=== PATIENT | female | born 1945 | race Caucasian/White ===

== ENCOUNTER 2023-03-10 23:10 | Inpatient (IN) | payer MEDICARE ==
[2023-03-11] MEDS ORDERED: SODIUM CHLORIDE 0.9% 1,000 ML IV STA (00:04)
--- NOTE | 2023-03-11 00:37 | ED ---
General Adult HPI - General Chief complaint: Recheck/Abnormal Lab/Rx Stated complaint: Abnormal Labs Time Seen by Provider: 03/10/23 23:59 Source: patient, EMS Mode of arrival: EMS Limitations: no limitations - History of Present Illness Initial comments: Dictation was produced using Calm dictation software. please excuse any grammatical, word or spelling errors. Chief Complaint: 77-year-old female presents to the emergency department for hypokalemia History of Present Illness: 77-year-old female presents emergency department for hypokalemia. Patient's had blood work drawn at [facility]. Patient recently diagnosed with C. diff infection. States that her diarrhea is improved. Patient has no complaints. She was told that she needs to come to the ER for low potassium levels. No pain. The ROS documented in this emergency department record has been reviewed and confirmed by me. Those systems with pertinent positive or negative responses have been documented in the HPI. All other systems are other negative and/or noncontributory. - Related Data Allergies Allergy/AdvReac Type Severity Reaction Status Date / Time No Known Allergies Allergy Verified 03/10/23 23:22 Review of Systems ROS Statement: Those systems with pertinent positive or pertinent negative responses have been documented in the HPI. ROS Other: All systems not noted in ROS Statement are negative. General Exam - General Exam Comments Initial Comments: PHYSICAL EXAM: General Impression: Alert and oriented x3, not in acute distress HEENT: Normocephalic atraumatic, extra-ocular movements intact, pupils equal and reactive to light bilaterally, mucous membranes moist. Cardiovascular: Heart regular rate and rhythm Chest: Able to complete full sentences, no retractions, no tachypnea Abdomen: abdomen soft, non-tender, non-distended, no organomegaly Musculoskeletal: Pulses present and equal in all extremities, no peripheral edema Motor: no focal deficits noted Neurological: CN II-XII grossly intact, no focal motor or sensory deficits noted Skin: Intact with no visualized rashes Psych: Normal affect and mood Limitations: no limitations Course Vital Signs 03/10/23 0703/11/23 23:14 00:58 02:39 Temperature 98.0 F Pulse Rate 91 74 88 Respiratory 18 16 Rate Blood Pressure 81/53 99/53 95/51 O2 Sat by Pulse 94 L 97 Oximetry EKG Findings - EKG Comments: EKG Findings:: My EKG interpretation: Ventr 90, ventricular paced rhythm,. Interval to 29, QRS 135, QTC 480 icular rate [default value]. No VT prolongation, no QTC prolongation, no ST or T-wave changes noted. Overall, this EKG is unremarkable Medical Decision Making - Medical Decision Making Was pt. sent in by a medical professional or institution (, PA, [employer], urgent care, hospital, or group home...) When possible be specific @ -[No] Did you speak to anyone other than the patient for history (EMS, parent, family, police, friend...)? What history was obtained from this source @ -[No] Did you review nursing and triage notes (agree or disagree)? Why? @ -[I reviewed and agree with nursing and triage notes] Were old charts reviewed (outside hosp., previous admission, EMS record, old EKG, old radiological studies, urgent care reports/EKG's, group home records)? Report findings @ -group home notes reviewed showing patient has multiple comorbidities Differential Diagnosis (chest pain, altered mental status, abdominal pain women, abdominal pain men, vaginal bleeding, musculoskeletal, weakness, fever, dyspnea, syncope, headache, dizziness, GI bleed, back pain, seizure, CVA, palpatations, mental health)? @ -Differential Weakness: Hypoglycemia, shock, sepsis, hyponatremia, anemia, infection, MA, ETOH, adverse medicine reaction, overdose, stroke, this is not meant to be an all-inclusive list. EKG interpreted by me (3pts min.). @ -as above X-rays interpreted by me (1pt min.). @ -[None done] CT interpreted by me (1pt min.). @ -[None done] U/S interpreted by me (1pt. min.). @ -[None done] What testing was considered but not performed or refused? (CT, X-rays, U/S, l abs)? Why? @ -[None] What meds were considered but not given or refused? Why? @ -[None] Did you discuss the management of the patient with other professionals (professionals i.e. , [facility], [employer], lab, RT, psych nurse, social work nurse, director housekeeping, teacher, juvenile probation officer, dependency case manager)? Give summary @ -[No] Was smoking cessation discussed for >3mins.? @ -[No] Was critical care preformed (if so, how long)? @ -[No] Were there social determinants of health that impacted care today? How? (Homelessness, low income, unemployed, alcoholism, drug addiction, transportation, low edu. Level, literacy, decrease access to med. care, detention, rehab)? @ -[No] Was there de-escalation of care discussed even if they declined (Discuss DNR or withdrawal of care, Hospice)? DNR status @ -[No] What co-morbidities impacted this encounter? (DM, HTN, Smoking, COPD, CAD, Cancer, CVA, ARF, Chemo, Hep., AIDS, mental health diagnosis, sleep apnea, morbid obesity)? @ -[None] Was patient admitted / discharged? Hospital course, mention meds given and route, prescriptions, significant lab abnormalities, going to OR and other p ertinent info. @ -77-year-old female presents to emergency department for abnormal potassium level seen on blood work drawn outpatient. Patient denies any complaints. Initial blood pressure was 8153 however repeat blood pressure without any intervention was 99/53. She denies any complaints. Laboratory evaluation obtained. Leukocytosis of 14.7 hemoglobin 9.6. Sodium of 129. Elevated renal markers. Troponin is 0.141. There are no old labs for comparison. Patient denies any chest pain or shortness of breath. Troponin is likely secondary troponin leak however given that patient has significant comorbidities with no old labs for comparison we will place patient to observation unit for serial troponins. Patient given IV fluids. Patient reevaluated bedside throughout 2 AM denies any complaints at the bedside. Undiagnosed new problem with uncertain prognosis? @ -[No] Drug Therapy requiring intensive monitoring for toxicity (Heparin, Nitro, Insulin, Cardizem)? @ -[No] Were any procedures done? @ -[No] Diagnosis/symptom? Acute, or Chronic, or Acute on Chronic? Uncomplicated (without systemic symptoms) or Complicated (systemic symptoms)? @ -1. Positive troponin Side effects of treatment? @ -[No] Exacerbation, Progression, or Severe Exacerbation? @ -no Poses a threat to life or bodily function? How? (Chest pain, USA, MA, pneumonia, PE, COPD, DKA, ARF, appy, cholecystitis, CVA, Diverticulitis, Homicidal, Janina cidal, threat to staff... and all critical care pts) @ -yes - Lab Data Result diagrams: 03/11/23 00:39 03/11/23 00:39 Lab Results 03/11/23 03/11/23 03/11/23 Range/Units 00:39 00:39 00:39 WBC 14.7 H (3.8-10.6) k/uL RBC 3.19 L (3.80-5.40) m/uL Hgb 9.6 L (11.4-16.0) gm/dL Hct 29.5 L (34.0-46.0) % MCV 92.5 (80.0-100.0) fL MCH 30.2 (25.0-35.0) pg MCHC 32.7 (31.0-37.0) g/dL RDW 14.9 (11.5-15.5) % Plt Count 311 (150-450) k/uL MPV 8.2 Neutrophils % 87 % Lymphocytes % 4 % Monocytes % 4 % Eosinophils % 2 % Basophils % 0 % Neutrophils # 12.8 H (1.3-7.7) k/uL Lymphocytes # 0.6 L (1.0-4.8) k/uL Monocytes # 0.6 (0-1.0) k/uL Eosinophils # 0.3 (0-0.7) k/uL Basophils # 0.0 (0-0.2) k/uL Poikilocytosis Slight PT 10.8 (9.0-12.0) sec INR 1.0 (<1.2) APTT 23.9 (22.0-30.0) sec Sodium 129 L (137-145) mmol/L Potassium 3.4 L (3.5-5.1) mmol/L Chloride 95 L (98-107) mmol/L Carbon Dioxide 26 (22-30) mmol/L Anion Gap 8 mmol/L BUN 33 H (7-17) mg/dL Creatinine 1.24 H (0.52-1.04) mg/dL Est GFR (CKD-EPI)AfAm 49 (>60 ml/min/1.73 sqM) Est GFR (CKD-EPI)NonAf 42 (>60 ml/min/1.73 sqM) Glucose 58 L (74-99) mg/dL Plasma Lactic Acid Vj (0.7-2.0) mmol/L Calcium 7.5 L (8.4-10.2) mg/dL Magnesium 2.1 (1.6-2.3) mg/dL Total Bilirubin 0.5 (0.2-1.3) mg/dL AST 22 (14-36) U/L ALT 15 (4-34) U/L Alkaline Phosphatase 84 (38-126) U/L Troponin I (0.000-0.034) ng/mL Total Protein 4.9 L (6.3-8.2) g/dL Albumin 2.4 L (3.5-5.0) g/dL 03/11/23 03/11/23 Range/Units 00:39 00:39 WBC (3.8-10.6) k/uL RBC (3.80-5.40) m/uL Hgb (11.4-16.0) gm/dL Hct (34.0-46.0) % MCV (80.0-100.0) fL MCH (25.0-35.0) pg MCHC (31.0-37.0) g/dL RDW (11.5-15.5) % Plt Count (150-450) k/uL MPV Neutrophils % % Lymphocytes % % Monocytes % % Eosinophils % % Basophils % % Neutrophils # (1.3-7.7) k/uL Lymphocytes # (1.0-4.8) k/uL Monocytes # (0-1.0) k/uL Eosinophils # (0-0.7) k/uL Basophils # (0-0.2) k/uL Poikilocytosis PT (9.0-12.0) sec INR (<1.2) APTT (22.0-30.0) sec Sodium (137-145) mmol/L Potassium (3.5-5.1) mmol/L Chloride (98-107) mmol/L Carbon Dioxide (22-30) mmol/L Anion Gap mmol/L BUN (7-17) mg/dL Creatinine (0.52-1.04) mg/dL Est GFR (CKD-EPI)AfAm (>60 ml/min/1.73 sqM) Est GFR (CKD-EPI)NonAf (>60 ml/min/1.73 sqM) Glucose (74-99) mg/dL Plasma Lactic Acid Vj 1.0 (0.7-2.0) mmol/L Calcium (8.4-10.2) mg/dL Magnesium (1.6-2.3) mg/dL Total Bilirubin (0.2-1.3) mg/dL AST (14-36) U/L ALT (4-34) U/L Alkaline Phosphatase (38-126) U/L Troponin I 0.141 H* (0.000-0.034) ng/mL Total Protein (6.3-8.2) g/dL Albumin (3.5-5.0) g/dL Disposition Clinical Impression: Elevated troponin Disposition: ADMITTED IP TO THIS HOSP Condition: Fair Referrals: Juan Carlos Gordillo MD [Primary Care Provider] - 1-2 days Decision Time: 03:05
[2023-03-11 01:26] LABS: Basophils % (A) 0 %; Eosinophils # (A) 0.3 k/uL (0-0.7); Eosinophils % (A) 2 %; HCT 29.5 % (34.0-46.0); HGB 9.6 gm/dL (11.4-16.0); Lymphocytes # (A) 0.6 k/uL (1.0-4.8); Lymphocytes % (A) 4 %; MCH 30.2 pg (25.0-35.0); MCHC 32.7 g/dL (31.0-37.0); MCV 92.5 fL (80.0-100.0); Mean Platelet Volume 8.2; Monocytes # (A) 0.6 k/uL (0-1.0); Monocytes % (A) 4 %; Neutrophils # (A) 12.8 k/uL (1.3-7.7); Neutrophils % (A) 87 %; Platelet Count 311 k/uL (150-450); Poikilocytosis Slight; RBC 3.19 m/uL (3.80-5.40); RDW 14.9 % (11.5-15.5); WBC 14.7 k/uL (3.8-10.6)
[2023-03-11 01:28] LABS: Partial Thromboplastin Time 23.9 sec (22.0-30.0); Prothrombin Time 10.8 sec (9.0-12.0)
[2023-03-11 02:21] LABS: ALT 15 U/L (4-34); AST 22 U/L (14-36); African American GFR (CKD) 49 (>60 ml/min/1.73 sqM); Albumin 2.4 g/dL (3.5-5.0); Alkaline Phosphatase 84 U/L (38-126); Anion Gap 8 mmol/L; Blood Urea Nitrogen 33 mg/dL (7-17); Calcium 7.5 mg/dL (8.4-10.2); Carbon Dioxide 26 mmol/L (22-30); Chloride 95 mmol/L (98-107); Glucose 58 mg/dL (74-99); Magnesium 2.1 mg/dL (1.6-2.3); Non-African American GFR(CKD) 42 (>60 ml/min/1.73 sqM); Potassium 3.4 mmol/L (3.5-5.1); Sodium 129 mmol/L (137-145); Total Bilirubin 0.5 mg/dL (0.2-1.3); Total Protein 4.9 g/dL (6.3-8.2)
[2023-03-11] MEDS ORDERED: NITROGLYCERIN SL TABS 0.4 MG TAB SUBLINGUAL PRN (03:05)
[2023-03-11 07:28] LABS: Glucose,Whole Blood 75 mg/dL (70-110)
--- NOTE | 2023-03-11 07:35 | P.CRDCN ---
History of Present Illness Consult date: 03/11/23 Chief complaint: Generalized weakness History of present illness: The patient is a 77-year-old female patient with coronary artery disease and pr ior stenting with unknown details at this point the patient currently follows with a activity therapy specialist at [facility] and also history of permanent pacemaker. [facility] because she was threatening was diarrhea for the last few days and she was diagnosed with C. diff diarrhea. Her potassium was low and for that reason she was brought to the hospital because attempted to replace the potassium in the extended-care facility was unsuccessful. For some reason his an unknown reasons the troponin was drawn and came in to be slightly abnormal. Clinically the patient did not have any symptoms of any chest pain or chest discomfort or shortness of breath. The EKG showed ventricular paced rhythm but the underlying rhythm on the EKG was unknown but on the telemetry she seems to have sinus rhythm. Beside that the blood work showed mild renal failure. The patient had no prior cardiac records in this facility and we will know she has any normal renal function in the past. Her potassium continues to be low and that is in process to be replaced. The examination is remarkable for mild sinus tachycardia was normal blood pressure and regular rhythm with a soft systolic murmur at the right and left upper sternal border with diminished breathing sounds bilaterally and no lower extremity edema noted. Assessment C. diff diarrhea Electrolytes imbalance with hypokalemia secondary to C. diff diarrhea Mild sinus tachycardia likely secondary to diarrhea Evidence of myocardial injury was no evidence of ischemia finicky or by EKG. An echocardiogram to be performed for further risk stratification Coronary artery disease with prior revascularization with unknown details History of permanent pacemaker Plan Continue the current medical regimen Add small dose of beta dayo with Toprol-XL in the light of tachycardia and abnormal troponin Obtain an echocardiogram for further risk stratification Follow-up with the patient Past Medical History History of Any Multi-Drug Resistant Organisms: C-DIFF Date of last positivie culture/infection: 03/08/23 MDRO Source:: Unknown Past Surgical History: Joint Replacement, Pacemaker Additional Past Surgical History / Comment(s): Cateract surgery bilaterally, Broken left hip with surgical repair Additional Past Anesthesia/Blood Transfusion Reaction / Comment(s): No transfusions received Type of Cardiac Device: Permanent Pacemaker Device Placement Date:: 2017 Past Psychological History: No Psychological Hx Reported Smoking Status: Former smoker Past Alcohol Use History: None Reported Past Drug Use History: None Reported - Past Family History Sister(s) Family Medical History: COPD Medications and Allergies Home Medications Medication Instructions Recorded Confirmed Type Aspirin EC [Ecotrin Low Dose] 81 mg PO DAILY 03/11/23 03/11/23 History Enoxaparin Sodium 40 mg SQ DAILY 03/11/23 03/11/23 History Ezetimibe [Zetia] 10 mg PO DAILY 03/11/23 03/11/23 History Furosemide [Lasix] 20 mg PO DAILY 03/11/23 03/11/23 History Potassium Chloride ER [K-Dur 20] 20 meq PO DAILY 03/11/23 03/11/23 History Vancomycin HCl [Vancocin HCl] 125 mg PO QID 03/11/23 03/11/23 History Allergies Allergy/AdvReac Type Severity Reaction Status Date / Time atorvastatin Allergy Unknown Verified 03/11/23 05:49 lisinopril Allergy Unknown Verified 03/11/23 05:49 losartan [From Cozaar] Allergy Unknown Verified 03/11/23 05:49 rosuvastatin [From Crestor] Allergy Unknown Verified 03/11/23 05:49 Physical Exam Vitals: Vital Signs Temp Pulse Pulse Resp BP BP Pulse Ox 03/11/23 04:43 97.9 F 87 18 98/61 95 03/11/23 03:28 87 16 105/70 92 L 03/11/23 02:39 88 95/51 03/11/23 00:58 74 16 99/53 97 03/10/23 23:14 98.0 F 91 18 81/53 94 L Intake and Output 03/10/23 03/11/23 03/11/23 22:59 06:59 14:59 Other: # Voids 1 # Bowel Movements 1 Weight 81.647 kg Results 03/11/23 00:39 03/11/23 00:39 Cardiac Enzymes 03/11/23 03/11/23 03/11/23 Range/Units 00:39 00:39 04:03 AST 22 (14-36) U/L Troponin I 0.141 H* 0.094 H* (0.000-0.034) ng/mL Coagulation 03/11/23 Range/Units 00:39 PT 10.8 (9.0-12.0) sec APTT 23.9 (22.0-30.0) sec CBC 03/11/23 Range/Units 00:39 WBC 14.7 H (3.8-10.6) k/uL RBC 3.19 L (3.80-5.40) m/uL Hgb 9.6 L (11.4-16.0) gm/dL Hct 29.5 L (34.0-46.0) % Plt Count 311 (150-450) k/uL Comprehensive Metabolic Panel 03/11/23 Range/Units 00:39 Sodium 129 L (137-145) mmol/L Potassium 3.4 L (3.5-5.1) mmol/L Chloride 95 L (98-107) mmol/L Carbon Dioxide 26 (22-30) mmol/L BUN 33 H (7-17) mg/dL Creatinine 1.24 H (0.52-1.04) mg/dL Glucose 58 L (74-99) mg/dL Calcium 7.5 L (8.4-10.2) mg/dL AST 22 (14-36) U/L ALT 15 (4-34) U/L Alkaline Phosphatase 84 (38-126) U/L Total Protein 4.9 L (6.3-8.2) g/dL Albumin 2.4 L (3.5-5.0) g/dL Current Medications Generic Name Dose Route Start Last Admin Trade Name Freq PRN Reason Stop Dose Admin Aspirin 81 mg 03/11/23 09:00 Aspirin 81 Mg PO DAILY REPLACED BY [facility] Ezetimibe 10 mg 03/11/23 09:00 Ezetimibe 10 Mg Tab PO DAILY REPLACED BY [facility] Enoxaparin Sodium 40 mg 03/11/23 09:00 Enoxaparin 40 Mg/0.4 Ml Syringe SQ DAILY REPLACED BY [facility] Nitroglycerin 0.4 mg 03/11/23 03:05 Nitroglycerin Sl Tabs 0.4 Mg Tab SUBLINGUAL Q5M PRN Chest Pain Vancomycin HCl 125 mg 03/11/23 09:00 Vancomycin 125 Mg Capsule PO QID REPLACED BY [facility] Protocol Intake and Output 03/10/23 03/11/23 03/11/23 22:59 06:59 14:59 Other: # Voids 1 # Bowel Movements 1 Weight 81.647 kg 03/11/23 00:39 03/11/23 00:39
[2023-03-11] MEDS: EZETIMIBE 10 MG TAB PO SCH (08:39)
[2023-03-11] MEDS: ASPIRIN 81 MG PO SCH (08:40)
[2023-03-11] MEDS: VANCOMYCIN 125 MG CAPSULE PO SCH ×4 (08:40→20:58)
[2023-03-11] MEDS: ENOXAPARIN 40 MG/0.4 ML SYRINGE SQ SCH (08:40)
[2023-03-11] MEDS ORDERED: METOPROLOL SUCCINATE (ER) 25 MG TAB.ER.24H PO SCH (09:00)
--- NOTE | 2023-03-11 10:55 | CA ---
Transthoracic Echo Report Name: Princess Pierre Age: 77 Gender: F : 1945 Exam Date: 03/11/2023 09:01 Exam Location: [facility] [facility] Ht (in): 64 Wt (lb): 180 Ordering Physician: Seb Martinez MD Attending/Referring Phys: Cloud Security Architect Nay Noe [facility] Procedure CPT: Indications: troponin elevation Cardiac Hx: Technical Quality: Fair Contrast 1: Total Dose (mL): Contrast 2: Total Dose (mL): MEASUREMENTS (Male / Female) Normal Values 2D ECHO LV Diastolic Diameter PLAX 4.6 cm 4.2 - 5.9 / 3.9 - 5.3 cm LV Systolic Diameter PLAX 3.1 cm IVS Diastolic Thickness 1.0 cm 0.6 - 1.0 / 0.6 - 0.9 cm LVPW Diastolic Thickness 1.1 cm 0.6 - 1.0 / 0.6 - 0.9 cm LV Relative Wall Thickness 0.5 LVOT Diameter 2.0 cm Ascending Aorta Diameter 3.3 cm M-MODE Aortic Root Diameter MM 3.5 cm LA Systolic Diameter MM 3.5 cm LA Ao Ratio MM 1.0 AV Cusp Separation MM 2.2 cm DOPPLER AV Peak Velocity 148.1 cm/s AV Peak Gradient 8.8 mmHg AV Mean Velocity 100.5 cm/s AV Mean Gradient 4.6 mmHg AV Velocity Time Integral 28.5 cm LVOT Peak Velocity 108.5 cm/s LVOT Peak Gradient 4.7 mmHg LVOT Velocity Time Integral 20.2 cm LVOT Stroke Volume 60.6 cm??? LVOT Stroke Volume Index 32.4 ml/m??? LVOT Cardiac Index 2800.4 cm???/min???m??? AV Area Cont Eq vti 2.1 cm??? AV Area Cont Eq pk 2.2 cm??? MV Peak Velocity 185.9 cm/s MV Peak Gradient 13.8 mmHg MV Mean Velocity 121.4 cm/s MV Mean Gradient 7.0 mmHg MV Velocity Time Integral 34.9 cm MV Area PHT 4.3 cm??? MR Peak Velocity 480.6 cm/s MR Peak Gradient 92.4 mmHg Mitral E Point Velocity 85.9 cm/s Mitral A Point Velocity 144.4 cm/s Mitral E to A Ratio 0.6 MV Deceleration Time 191.9 ms TR Peak Velocity 307.8 cm/s TR Peak Gradient 37.9 mmHg Right Atrial Pressure 8.0 mmHg Pulmonary Artery Systolic Pressu 45.9 mmHg Right Ventricular Systolic Press 42.9 mmHg FINDINGS Left Ventricle Mildly increased left ventricular wall thickness. Left ventricular cavity size normal. Left ventricular ejection fraction is estimated at 55-60%. No obvious regional wall motion abnormalities. Right Ventricle Severe right ventricular dilatation. Moderate pulmonary hypertension. Right Atrium Severe right atrial dilatation. Left Atrium Severe left atrial dilatation. Mitral Valve Severe mitral annular calcification. Moderately decreased mobility of the posterior mitral valve leaflet. Moderate mitral regurgitation. Moderate mitral stenosis. Aortic Valve Trileaflet aortic valve. Diffuse thickening (sclerosis) of the aortic valve cusps without reduced excursion. Tricuspid Valve Structurally normal tricuspid valve. Moderate tricuspid regurgitation. Pulmonic Valve Structurally normal pulmonic valve. No pulmonic regurgitation. Pericardium No pericardial effusion. Aorta Normal size aortic root and proximal ascending aorta. CONCLUSIONS Normal LV systolic function Moderate pulmonary hypertension. Dilated right ventricle Moderate mitral stenosis and moderate mitral regurgitation. The mitral valve is extremely calcific Aortic sclerosis with mild aortic stenosis Previewed by: Dr. Seb Martinez MD (Electronically Signed) Final Date: 11 March 2023 10:54
[2023-03-11 11:55] LABS: Glucose,Whole Blood 97 mg/dL (70-110)
[2023-03-11 12:40] LABS: African American GFR (CKD) 56 (>60 ml/min/1.73 sqM); Anion Gap 7 mmol/L; Blood Urea Nitrogen 29 mg/dL (7-17); Calcium 7.7 mg/dL (8.4-10.2); Carbon Dioxide 25 mmol/L (22-30); Chloride 98 mmol/L (98-107); Glucose 88 mg/dL (74-99); Non-African American GFR(CKD) 49 (>60 ml/min/1.73 sqM); Potassium 3.2 mmol/L (3.5-5.1); Sodium 130 mmol/L (137-145)
[2023-03-11] MEDS ORDERED: MELATONIN 3 MG TABLET PO PRN (14:01)
[2023-03-11] MEDS ORDERED: NON FORMULARY DRUG (Glucerna Shake 1 CAN Ml) PO SCH (14:15)
[2023-03-11] MEDS ORDERED: POTASSIUM CHLORIDE ER 10 MEQ TAB.ER.PRT PO STA (14:54)
[2023-03-11] MEDS: MIDODRINE 5 MG TAB PO SCH ×2 (15:03→17:56)
[2023-03-11] MEDS ORDERED: MIDODRINE 5 MG TAB PO SCH (17:30)
--- NOTE | 2023-03-11 18:40 | P.HPIM ---
History of Present Illness H&P Date: 03/11/23 Chief Complaint: Generalized weakness 77-year-old female patient with coronary artery disease and prior stenting and permanent pacemaker; follows with a real estate rep at [facility]. She was brought from extended-care facility with complaints of diarrhea for the last few days and she was diagnosed with C. diff diarrhea. Her potassium was low and for that reason she was brought to the hospital because attempted to replace the potassium in the extended-care facility was unsuccessful. Blood work in the ED revealed the troponin was slightly abnormal. Clinically the patient did not have any symptoms of any chest pain or chest discomfort or shortness of breath. The EKG showed ventricular paced rhythm but the underlying rhythm on the EKG was unknown but on the telemetry she seems to have sinus rhythm. Beside that the blood work showed mild renal failure. The patient had no prior cardiac records in this facility and we will know she has any normal renal function in the past. Her potassium continues to be low and that is in process to be replaced. Review of Systems REVIEW OF SYSTEMS: CONSTITUTIONAL: No fever, no malaise, no fatigue. HEENT: No recent visual problems or hearing problems. Denied any sore throat. CARDIOVASCULAR: No chest pain, orthopnea, PND, no palpitations, no syncope. PULMONARY: No shortness of breath, no cough, no hemoptysis. GASTROINTESTINAL: No diarrhea, no nausea, no vomiting, no abdominal pain. NEUROLOGICAL: No headaches, no weakness, no numbness. HEMATOLOGICAL: Denies any bleeding or petechiae. GENITOURINARY: Denies any burning micturition, frequency, or urgency. MUSCULOSKELETAL/RHEUMATOLOGICAL: Denies any joint pain, swelling, or any muscle pain. ENDOCRINE: Denies any polyuria or polydipsia. The rest of the 14-point review of systems is negative. Past Medical History History of Any Multi-Drug Resistant Organisms: C-DIFF Date of last positivie culture/infection: 03/08/23 MDRO Source:: Unknown Past Surgical History: Joint Replacement, Pacemaker Additional Past Surgical History / Comment(s): Cateract surgery bilaterally, Broken left hip with surgical repair Additional Past Anesthesia/Blood Transfusion Reaction / Comment(s): No transfusions received Type of Cardiac Device: Permanent Pacemaker Device Placement Date:: 2017 Past Psychological History: No Psychological Hx Reported Smoking Status: Former smoker Past Alcohol Use History: None Reported Past Drug Use History: None Reported - Past Family History Sister(s) Family Medical History: COPD Medications and Allergies Home Medications Medication Instructions Recorded Confirmed Type Acetaminophen Tab [Tylenol] 650 mg PO Q4H PRN 03/11/23 03/11/23 History Aspirin EC [Ecotrin Low Dose] 81 mg PO DAILY 03/11/23 03/11/23 History Collagenase [Santyl Ointment] 1 applic TOPICAL DAILY PRN 03/11/23 03/11/23 History Collagenase [Santyl Ointment] 1 applic TOPICAL HS 03/11/23 03/11/23 History Enoxaparin Sodium 40 mg SQ DAILY 03/11/23 03/11/23 History Ezetimibe [Zetia] 10 mg PO DAILY 03/11/23 03/11/23 History Furosemide [Lasix] 20 mg PO DAILY@0600 03/11/23 03/11/23 History Glucerna Shake 1 can PO DAILY 03/11/23 03/11/23 History Melatonin 3 mg PO HS PRN 03/11/23 03/11/23 History Multivitamins, Thera [Multivitamin 1 tab PO DAILY 03/11/23 03/11/23 History (formulary)] Prostat Awc 30 ml PO DAILY 03/11/23 03/11/23 History Vancomycin HCl [Vancocin HCl] 125 mg PO QID 03/11/23 03/11/23 History Zguard 1 applic TOPICAL BID 03/11/23 03/11/23 History diphenhydrAMINE HCL [Benadryl] 25 mg PO BID PRN 03/11/23 03/11/23 History Allergies Allergy/AdvReac Type Severity Reaction Status Date / Time atorvastatin Allergy Unknown Verified 03/11/23 07:48 lisinopril Allergy Unknown Verified 03/11/23 07:48 losartan [From Cozaar] Allergy Unknown Verified 03/11/23 07:48 rosuvastatin [From Crestor] Allergy Unknown Verified 03/11/23 07:48 Physical Exam Vitals: Vital Signs Temp Pulse Pulse Resp BP BP Pulse Ox 03/11/23 12:35 74 18 82/41 98 03/11/23 08:12 97.8 F 64 18 90/50 97 03/11/23 04:43 97.9 F 87 18 98/61 95 03/11/23 03:28 87 16 105/70 92 L 03/11/23 02:39 88 95/51 03/11/23 00:58 74 16 99/53 97 03/10/23 23:14 98.0 F 91 18 81/53 94 L Intake and Output 03/10/23 03/11/23 03/11/23 22:59 06:59 14:59 Intake Total 250 Balance 250 Intake: IV 10 Invasive Line 1 10 Oral 240 Other: Voiding Method Diaper # Voids 1 1 # Bowel Movements 1 1 Weight 81.647 kg PHYSICAL EXAMINATION: GENERAL: The patient is alert and oriented x3, not in any acute distress. Well developed, well nourished. HEENT: Pupils are round and equally reacting to light. EOMI. No scleral icterus. No conjunctival pallor. Normocephalic, atraumatic. No pharyngeal erythema. No thyromegaly. CARDIOVASCULAR: S1 and S2 present. No murmurs, rubs, or gallops. PULMONARY: Chest is clear to auscultation, no wheezing or crackles. ABDOMEN: Soft, nontender, nondistended, normoactive bowel sounds. No palpable organomegaly. MUSCULOSKELETAL: No joint swelling or deformity. EXTREMITIES: No cyanosis, clubbing, or pedal edema. NEUROLOGICAL: Gross neurological examination did not reveal any focal deficits. SKIN: No rashes. Results CBC & Chem 7: 03/11/23 00:39 03/11/23 11:41 Labs: Abnormal Lab Results - Last 24 Hours (Table) 03/11/23 03/11/23 03/11/23 Range/Units 00:39 00:39 00:39 WBC 14.7 H (3.8-10.6) k/uL RBC 3.19 L (3.80-5.40) m/uL Hgb 9.6 L (11.4-16.0) gm/dL Hct 29.5 L (34.0-46.0) % Neutrophils # 12.8 H (1.3-7.7) k/uL Lymphocytes # 0.6 L (1.0-4.8) k/uL Sodium 129 L (137-145) mmol/L Potassium 3.4 L (3.5-5.1) mmol/L Chloride 95 L (98-107) mmol/L BUN 33 H (7-17) mg/dL Creatinine 1.24 H (0.52-1.04) mg/dL Glucose 58 L (74-99) mg/dL Calcium 7.5 L (8.4-10.2) mg/dL Troponin I 0.141 H* (0.000-0.034) ng/mL Total Protein 4.9 L (6.3-8.2) g/dL Albumin 2.4 L (3.5-5.0) g/dL 03/11/23 03/11/23 03/11/23 Range/Units 04:03 07:51 11:41 WBC (3.8-10.6) k/uL RBC (3.80-5.40) m/uL Hgb (11.4-16.0) gm/dL Hct (34.0-46.0) % Neutrophils # (1.3-7.7) k/uL Lymphocytes # (1.0-4.8) k/uL Sodium 130 L (137-145) mmol/L Potassium 3.2 L (3.5-5.1) mmol/L Chloride (98-107) mmol/L BUN 29 H (7-17) mg/dL Creatinine 1.10 H (0.52-1.04) mg/dL Glucose (74-99) mg/dL Calcium 7.7 L (8.4-10.2) mg/dL Troponin I 0.094 H* 0.081 H* (0.000-0.034) ng/mL Total Protein (6.3-8.2) g/dL Albumin (3.5-5.0) g/dL Thrombosis Risk Factor Assmnt - Choose All That Apply Any of the Below Risk Factors Present?: Yes Each Factor Represents 1 point: Obesity (BMI >25) Each Risk Factor Represents 3 Points: Age 75 years or older Thrombosis Risk Factor Assessment Total Risk Factor Score: 4 Thrombosis Risk Factor Assessment Level: Moderate Risk Assessment and Plan Assessment: 1. Elevated troponin; troponin is elevated at 0.141 upon arrival to - Patient has history of coronary artery disease with prior revascularization - EKG does not show any evidence of ischemia; we will monitor EKG and trend troponin - 2-D echo is recommended Cardiology on board for further evaluation 2. Sinus tachycardia/hypotension; likely related to dehydration secondary to diarrhea; cardiology recommending to start patient on a small dose of Toprol-XL 3. C. diff colitis; patient has been placed on oral vancomycin 125 mg every 6 hours; white blood count is elevated at 14.7, we will monitor CBC, CMP and pro- calcitonin; monitor lactic acid levels 4. Electrolyte imbalance/hypokalemia/hyponatremia; potassium replaced in ED; we will monitor electrolytes closely and supplement as needed; slow IV fluid hydration as indicated above 5. Hyperlipidemia; Zetia at 10 mg daily 6. Acute renal injury; BUN/creatinine is elevated at 33/1.2; we will place patient on slow IV fluid hydration; monitor strict BILL's, daily weights, renal function and electrolytes; avoid nephrotoxins and hypotension DVT prophylaxis; SCDs/subcu Lovenox CODE STATUS; full code
[2023-03-12] MEDS: MIDODRINE 5 MG TAB PO SCH ×3 (06:07→17:19)
--- NOTE | 2023-03-12 07:51 | P.PN ---
Subjective Progress Note Date: 03/12/23 Principal diagnosis: Abnormal cardiac enzymes The patient is a 77-year-old female patient with coronary artery disease and prior stenting with unknown details at this point the patient currently follows with a administrative operations coordinator at [facility] and also history of permanent pacemaker. She was brought from extended-care facility because she was threatening was diarrhea for the last few days and she was diagnosed with C. diff diarrhea. Her potassium was low and for that reason she was brought to the hospital because attempted to replace the potassium in the extended-care facility was unsuccessful. For some reason his an unknown reasons the troponin was drawn and came in to be slightly abnormal. Clinically the patient did not have any symptoms of any chest pain or chest discomfort or shortness of breath. The EKG showed ventricular paced rhythm but the underlying rhythm on the EKG was unknown but on the telemetry she seems to have sinus rhythm. Beside that the blood work showed mild renal failure. The patient had no prior cardiac records in this facility and we will know she has any normal renal function in the past. Her potassium continues to be low and that is in process to be replaced. March 122022 The patient was seen and evaluated this morning. She is asymptomatic and she is more than likely stable. The echo revealed normal LV systolic function was evidence of moderate mitral regurgitation and moderate mitral stenosis and mild aortic stenosis and dilated right ventricle. The pressure has been marginal. I'm going to decrease the dose of beta dayo. The examination is remarkable for mild sinus tachycardia was normal blood pressure and regular rhythm with a soft systolic murmur at the right and left upper sternal border with diminished breathing sounds bilaterally and no lower extremity edema noted. Assessment C. diff diarrhea Electrolytes imbalance with hypokalemia secondary to C. diff diarrhea Mild sinus tachycardia likely secondary to diarrhea Evidence of myocardial injury was no evidence of ischemia finicky or by EKG. An echocardiogram to be performed for further risk stratification Coronary artery disease with prior revascularization with unknown details Valvular heart disease as described above History of permanent pacemaker Plan Continue the current medical regimen The patient remains asymptomatic and hemodynamically stable beside marginally low blood pressure Continue the current medical regimen No need for any further cardiac workup at this point Follow-up with the patient on when necessary case Objective - Vital Signs Vital signs: Vital Signs Temp 97.9 F 03/11/23 20:00 Pulse 86 03/12/23 04:00 Resp 18 03/12/23 04:00 BP 106/52 03/12/23 04:00 Pulse Ox 95 03/12/23 04:00 FiO2 Intake & Output 03/11/23 03/12/23 03/12/23 18:59 06:59 18:59 Intake Total 500 20 Balance 500 20 Intake: IV 20 20 Invasive Line 1 20 20 Oral 480 Other: Voiding Method Diaper Diaper # Voids 1 1 # Bowel Movements 1 1 - Labs CBC & Chem 7: 03/11/23 00:39 03/11/23 11:41 Labs: Abnormal Lab Results - Last 24 Hours (Table) 03/11/23 03/11/23 Range/Units 07:51 11:41 Sodium 130 L (137-145) mmol/L Potassium 3.2 L (3.5-5.1) mmol/L BUN 29 H (7-17) mg/dL Creatinine 1.10 H (0.52-1.04) mg/dL Calcium 7.7 L (8.4-10.2) mg/dL Troponin I 0.081 H* (0.000-0.034) ng/mL
[2023-03-12] MEDS: ASPIRIN 81 MG PO SCH (09:53)
[2023-03-12] MEDS: VANCOMYCIN 125 MG CAPSULE PO SCH ×4 (09:53→21:32)
[2023-03-12] MEDS: MULTIVITAMINS, THERA 1 EACH TAB PO SCH (09:53)
[2023-03-12] MEDS: EZETIMIBE 10 MG TAB PO SCH (09:53)
[2023-03-12] MEDS: METOPROLOL SUCCINATE (ER) 25 MG TAB.ER.24H PO SCH (09:54)
[2023-03-12] MEDS: ENOXAPARIN 40 MG/0.4 ML SYRINGE SQ SCH (09:54)
[2023-03-12 10:53] LABS: Basophils % (A) 0 %; Eosinophils # (A) 0.2 k/uL (0-0.7); Eosinophils % (A) 1 %; HCT 31.8 % (34.0-46.0); Hypochromasia Slight; Lymphocytes # (A) 0.6 k/uL (1.0-4.8); Lymphocytes % (A) 4 %; MCH 30.1 pg (25.0-35.0); MCHC 31.6 g/dL (31.0-37.0); MCV 95.3 fL (80.0-100.0); Mean Platelet Volume 7.4; Monocytes # (A) 0.6 k/uL (0-1.0); Monocytes % (A) 3 %; Neutrophils # (A) 15.4 k/uL (1.3-7.7); Neutrophils % (A) 90 %; Platelet Count 384 k/uL (150-450); Poikilocytosis Slight; RBC 3.34 m/uL (3.80-5.40); RDW 14.9 % (11.5-15.5)
[2023-03-12 11:17] LABS: African American GFR (CKD) 54 (>60 ml/min/1.73 sqM); Anion Gap 8 mmol/L; Blood Urea Nitrogen 23 mg/dL (7-17); Calcium 7.9 mg/dL (8.4-10.2); Carbon Dioxide 25 mmol/L (22-30); Chloride 99 mmol/L (98-107); Glucose 89 mg/dL (74-99); Non-African American GFR(CKD) 47 (>60 ml/min/1.73 sqM); Potassium 3.9 mmol/L (3.5-5.1); Sodium 132 mmol/L (137-145)
[2023-03-12] MEDS ORDERED: SODIUM CHLORIDE 0.9% 1,000 ML IV SCH (15:00)
--- NOTE | 2023-03-12 17:24 | P.PN ---
Subjective Progress Note Date: 03/12/23 77-year-old female patient with coronary artery disease and prior stenting and permanent pacemaker; follows with a oil well services superintendent at [facility]. She was brought from extended-care facility with complaints of diarrhea for the last few days and she was diagnosed with C. diff diarrhea. Her potassium was low and for that reason she was brought to the hospital because attempted to replace the potassium in the extended-care facility was unsuccessful. Blood work in the ED revealed the troponin was slightly abnormal. Clinically the patient did not have any symptoms of any chest pain or chest discomfort or shortness of breath. The EKG showed ventricular paced rhythm but the underlying rhythm on the EKG was unknown but on the telemetry she seems to have sinus rhythm. Beside that the blood work showed mild renal failure. The patient had no prior cardiac records in this facility and we will know she has any normal renal function in the past. Her potassium continues to be low and that is in process to be replaced. 03/12/2023 Patient has been placed on oral vancomycin for C. diff colitis; white blood count has trended up to 17,000; we will continue with vancomycin and consult ID for final recommendations - Cardiology on board for evaluation of elevated troponin; EKG without any evidence of ischemia; no further workup has been recommended; patient continued to have tachycardia and was placed on Toprol XL with improved heart rate control; we'll further cardiac workup is recommended -Creatinine slowly trending down; we will place patient on IV fluids in form of normal saline at 75 mL an hour; monitor strict BILL's, daily weights, renal function and electrolytes; avoid nephrotoxins and hypotension - Blood pressure has been soft and is slowly improving Objective - Vital Signs Vital signs: Vital Signs Temp 98.1 F 03/12/23 08:24 Pulse 67 03/12/23 12:27 Resp 14 03/12/23 12:27 BP 101/57 03/12/23 12:27 Pulse Ox 97 03/12/23 12:27 FiO2 Intake & Output 03/11/23 03/12/23 03/12/23 18:59 06:59 18:59 Intake Total 500 20 500 Balance 500 20 500 Intake: IV 20 20 20 Invasive Line 1 20 20 10 Invasive Line 2 10 Oral 480 480 Other: Voiding Method Diaper Diaper Diaper # Voids 1 1 # Bowel Movements 1 1 1 - Exam PHYSICAL EXAMINATION: GENERAL: The patient is alert and oriented x3, not in any acute distress. Well developed, well nourished. HEENT: Pupils are round and equally reacting to light. EOMI. No scleral icterus. No conjunctival pallor. Normocephalic, atraumatic. No pharyngeal erythema. No thyromegaly. CARDIOVASCULAR: S1 and S2 present. No murmurs, rubs, or gallops. PULMONARY: Chest is clear to auscultation, no wheezing or crackles. ABDOMEN: Soft, nontender, nondistended, normoactive bowel sounds. No palpable organomegaly. MUSCULOSKELETAL: No joint swelling or deformity. EXTREMITIES: No cyanosis, clubbing, or pedal edema. NEUROLOGICAL: Gross neurological examination did not reveal any focal deficits. SKIN: No rashes. - Labs CBC & Chem 7: 03/12/23 10:11 03/12/23 10:11 Labs: Abnormal Lab Results - Last 24 Hours (Table) 03/12/23 03/12/23 Range/Units 10:11 10:11 WBC 17.0 H (3.8-10.6) k/uL RBC 3.34 L (3.80-5.40) m/uL Hgb 10.0 L (11.4-16.0) gm/dL Hct 31.8 L (34.0-46.0) % Neutrophils # 15.4 H (1.3-7.7) k/uL Lymphocytes # 0.6 L (1.0-4.8) k/uL Sodium 132 L (137-145) mmol/L BUN 23 H (7-17) mg/dL Creatinine 1.14 H (0.52-1.04) mg/dL Calcium 7.9 L (8.4-10.2) mg/dL Assessment and Plan Assessment: 1. Elevated troponin; troponin is elevated at 0.141 upon arrival to - Patient has history of coronary artery disease with prior revascularization - EKG does not show any evidence of ischemia; we will monitor EKG and trend troponin - 2-D echo is recommended Cardiology on board for further evaluation 2. Sinus tachycardia/hypotension; likely related to dehydration secondary to diarrhea; cardiology recommending to start patient on a small dose of Toprol-XL 3. C. diff colitis; patient has been placed on oral vancomycin 125 mg every 6 hours; white blood count is elevated at 14.7, we will monitor CBC, CMP and pro- calcitonin; monitor lactic acid levels 4. Electrolyte imbalance/hypokalemia/hyponatremia; potassium replaced in ED; we will monitor electrolytes closely and supplement as needed; slow IV fluid hydration as indicated above 5. Hyperlipidemia; Zetia at 10 mg daily 6. Acute renal injury; BUN/creatinine is elevated at 33/1.2; we will place patient on slow IV fluid hydration; monitor strict BILL's, daily weights, renal function and electrolytes; avoid nephrotoxins and hypotension DVT prophylaxis; SCDs/subcu Lovenox CODE STATUS; full code
[2023-03-12] MEDS: FIDAXOMICIN 200 MG TABLET PO SCH (21:46)
[2023-03-13] MEDS ORDERED: FUROSEMIDE 10 MG/ML 2 ML VIAL IV ONE (01:15)
[2023-03-13 01:59] LABS: Glucose,Whole Blood 104 mg/dL (70-110)
[2023-03-13] MEDS ORDERED: FUROSEMIDE 10 MG/ML 4 ML VIAL IV STA (02:08)
--- NOTE | 2023-03-13 02:57 | XR ---
EXAM: XR Chest, 1 View CLINICAL HISTORY: ITS.REASON XR Reason: Resp distress TECHNIQUE: Frontal view of the chest. COMPARISON: No relevant prior studies available. FINDINGS: Lungs: Right lung is clear. Pleural space: Large left pleural effusion with associated atelectasis of the left lower lobe. No pneumothorax. Heart: Unremarkable. No cardiomegaly. Mediastinum: Unremarkable. Bones/joints: Unremarkable. Tubes, lines and devices: Left chest wall dual-lead intracardiac device. IMPRESSION: As above
[2023-03-13] MEDS: MIDODRINE 5 MG TAB PO SCH ×3 (06:48→17:13)
[2023-03-13 07:01] LABS: African American GFR (CKD) 71 (>60 ml/min/1.73 sqM); Anion Gap 7 mmol/L; Blood Urea Nitrogen 20 mg/dL (7-17); Calcium 7.9 mg/dL (8.4-10.2); Carbon Dioxide 27 mmol/L (22-30); Chloride 101 mmol/L (98-107); Glucose 89 mg/dL (74-99); Non-African American GFR(CKD) 61 (>60 ml/min/1.73 sqM); Potassium 3.8 mmol/L (3.5-5.1); Sodium 135 mmol/L (137-145)
[2023-03-13 08:40] LABS: Chol/HDL Ratio 3.63 Ratio; LDL Cholesterol,Calculated 52.8 mg/dL (0.0-131.0)
[2023-03-13] MEDS: ASPIRIN 81 MG PO SCH (09:02)
[2023-03-13] MEDS: MULTIVITAMINS, THERA 1 EACH TAB PO SCH (09:02)
[2023-03-13] MEDS: EZETIMIBE 10 MG TAB PO SCH (09:02)
[2023-03-13] MEDS: METOPROLOL SUCCINATE (ER) 25 MG TAB.ER.24H PO SCH (09:03)
[2023-03-13] MEDS: ENOXAPARIN 40 MG/0.4 ML SYRINGE SQ SCH (09:04)
[2023-03-13] MEDS: FIDAXOMICIN 200 MG TABLET PO SCH ×2 (09:04→20:10)
--- NOTE | 2023-03-13 09:16 | P.CONS ---
History of Present Illness - Reason for Consult Consult date: 03/12/23 Worsening leukocytosis C. diff colitis Requesting physician: Pino Busch - Chief Complaint Abnormal labs x one day - History of Present Illness Patient is a 77-year-old female was recently diagnosed with C. difficile colitis at the local care home and the patient has been started on medication however the patient is not clear what medication she was taking medication summary indicated vancomycin 125 mg p.o. every 6 hours, patient has been sent to the ER as she was noted to have a low potassium patient has been complaining of increasing shortness of breath patient denies any chest pain occasional cough no sputum production no nausea no vomiting no abdominal pain has been complaining of diarrhea with multiple loose stools denies any blood or mucus in the stool patient on presentation to the hospital was afebrile and no fever has been ordered subsequently patient was mildly hypoxic with O2 sats of 94% and is currently on 3 L nasal cannula oxygen patient did have white count of 14,000 on admission that is up to 17,000 today, patient did have elevated BUN/creatinine however creatinine is trending down troponin was elevated cardiology was consulted with concern for worsening of white count infectious disease was consulted today for further management of antibiotic therapy Review of Systems Positive point and negatives has been mentioned in the HPI, complete review of systems was performed and all other systems are negative Past Medical History History of Any Multi-Drug Resistant Organisms: C-DIFF Year Discovered:: 03/08/23 MDRO Source:: Unknown Past Surgical History: Joint Replacement, Pacemaker Additional Past Surgical History / Comment(s): Cateract surgery bilaterally, Broken left hip with surgical repair Additional Past Anesthesia/Blood Transfusion Reaction / Comm: No transfusions received Type of Cardiac Device: Permanent Pacemaker Device Placement Date:: 2017 Past Psychological History: No Psychological Hx Reported Smoking Status: Former smoker Past Alcohol Use History: None Reported Past Drug Use History: None Reported - Past Family History Sister(s) Family Medical History: COPD Medications and Allergies Home Medications Medication Instructions Recorded Confirmed Type Acetaminophen Tab [Tylenol] 650 mg PO Q4H PRN 03/11/23 03/11/23 History Aspirin EC [Ecotrin Low Dose] 81 mg PO DAILY 03/11/23 03/11/23 History Collagenase [Santyl Ointment] 1 applic TOPICAL DAILY PRN 03/11/23 03/11/23 History Enoxaparin Sodium 40 mg SQ DAILY 03/11/23 03/11/23 History Ezetimibe [Zetia] 10 mg PO DAILY 03/11/23 03/11/23 History Furosemide [Lasix] 20 mg PO DAILY@0600 03/11/23 03/11/23 History Glucerna Shake 1 can PO DAILY 03/11/23 03/11/23 History Melatonin 3 mg PO HS PRN 03/11/23 03/11/23 History Multivitamins, Thera [Multivitamin 1 tab PO DAILY 03/11/23 03/11/23 History (formulary)] Prostat Awc 30 ml PO DAILY 03/11/23 03/11/23 History Zguard 1 applic TOPICAL BID 03/11/23 03/11/23 History diphenhydrAMINE HCL [Benadryl] 25 mg PO BID PRN 03/11/23 03/11/23 History Fidaxomicin [Dificid] 200 mg PO BID 6 Days #12 tab 03/16/23 Rx Metoprolol Succinate (ER) [Toprol 12.5 mg PO DAILY #30 tab 03/16/23 Rx XL] Midodrine [ProAmatine] 10 mg PO AC-TID #21 tab 03/16/23 Rx Allergies Allergy/AdvReac Type Severity Reaction Status Date / Time atorvastatin Allergy Unknown Verified 03/11/23 07:48 lisinopril Allergy Unknown Verified 03/11/23 07:48 losartan [From Cozaar] Allergy Unknown Verified 03/11/23 07:48 rosuvastatin [From Crestor] Allergy Unknown Verified 03/11/23 07:48 Physical Exam Vitals: Vital Signs Temp Pulse Resp BP Pulse Ox 03/12/23 16:25 97.8 F 70 16 108/59 97 03/12/23 12:27 67 14 101/57 97 03/12/23 08:24 98.1 F 74 15 101/53 97 03/12/23 04:00 86 18 106/52 95 03/12/23 01:44 84 03/11/23 23:59 84 18 97/62 96 Intake and Output 03/12/23 03/12/23 03/12/23 06:59 14:59 22:59 Intake Total 10 500 240 Balance 10 500 240 Intake: IV 10 20 Invasive Line 1 10 10 Invasive Line 2 10 Oral 480 240 Other: Voiding Method Diaper Diaper # Voids 1 2 # Bowel Movements 1 2 GENERAL DESCRIPTION: Elderly female lying in bed, no distress. No tachypnea or accessory muscle of respiration use. HEENT: Shows Pallor , no scleral icterus. Oral mucous membrane is dry. NECK: Trachea central, no thyromegaly. LUNGS: Unlabored breathing. Clear to auscultation anteriorly. No wheeze or crackle. HEART: S1, S2, regular rate and rhythm. No loud murmur ABDOMEN: Soft, no tenderness , EXTREMITIES: No edema of feet. SKIN: No rash, no masses palpable. NEUROLOGICAL: The patient is awake, alert, oriented x3, mood and affect normal. Results CBC & Chem 7: 03/15/23 10:01 03/15/23 10:01 Labs: Abnormal Lab Results - Last 24 Hours (Table) 03/12/23 03/12/23 Range/Units 10:11 10:11 WBC 17.0 H (3.8-10.6) k/uL RBC 3.34 L (3.80-5.40) m/uL Hgb 10.0 L (11.4-16.0) gm/dL Hct 31.8 L (34.0-46.0) % Neutrophils # 15.4 H (1.3-7.7) k/uL Lymphocytes # 0.6 L (1.0-4.8) k/uL Sodium 132 L (137-145) mmol/L BUN 23 H (7-17) mg/dL Creatinine 1.14 H (0.52-1.04) mg/dL Calcium 7.9 L (8.4-10.2) mg/dL Assessment and Plan (1) Leukocytosis Status: Acute Code(s): D72.829 - ELEVATED WHITE BLOOD CELL COUNT, UNSPECIFIED SNOMED Code(s): 701691234 (2) C. difficile colitis Status: Acute Code(s): A04.72 - ENTEROCOLITIS D/T CLOSTRIDIUM DIFFICILE, NOT SPCF RECUR SNOMED Code(s): 876661955 Plan: 1patient presented to hospital with low potassium in this patient with a recent diagnosis of ulcerative colitis and has been treated with oral vancomycin patient continued to have significant diarrhea despite being on oral vancomycin was noticed to have worsening of the white count, patient is also complaining of shortness of breath and is hypoxic but no significant cough to be suspicious for pneumonia. 2we will discontinue vancomycin and start patient on Dificid. 3we will check a chest x-ray CRP and procalcitonin we will follow on clinical condition and cultures to further adjust medication if needed Thank you for this consultation we will follow the patient along with you Time with Patient: Greater than 30
--- NOTE | 2023-03-13 13:40 | P.PN ---
Subjective Progress Note Date: 03/13/23 77-year-old female patient with coronary artery disease and prior stenting and permanent pacemaker; follows with a sales agent financial report service at [facility]. She was brought from extended-care facility with complaints of diarrhea for the last few days and she was diagnosed with C. diff diarrhea. Her potassium was low and for that reason she was brought to the hospital because attempted to replace the potassium in the extended-care facility was unsuccessful. Blood work in the ED revealed the troponin was slightly abnormal. Clinically the patient did not have any symptoms of any chest pain or chest discomfort or shortness of breath. The EKG showed ventricular paced rhythm but the underlying rhythm on the EKG was unknown but on the telemetry she seems to have sinus rhythm. Beside that the blood work showed mild renal failure. The patient had no prior cardiac records in this facility and we will know she has any normal renal function in the past. Her potassium continues to be low and that is in process to be replaced. 03/12/2023 Patient has been placed on oral vancomycin for C. diff colitis; white blood count has trended up to 17,000; we will continue with vancomycin and consult ID for final recommendations - Cardiology on board for evaluation of elevated troponin; EKG without any evidence of ischemia; no further workup has been recommended; patient continued to have tachycardia and was placed on Toprol XL with improved heart rate control; we'll further cardiac workup is recommended -Creatinine slowly trending down; we will place patient on IV fluids in form of normal saline at 75 mL an hour; monitor strict BILL's, daily weights, renal function and electrolytes; avoid nephrotoxins and hypotension - Blood pressure has been soft and is slowly improving 03/13. Patient seen and examined. States she gets short of breath on exertion. Denies any chest pain. Does not use any home O2 REVIEW OF SYSTEMS: CONSTITUTIONAL: No fever, no malaise,. CARDIOVASCULAR: No chest pain, no palpitations, no syncope. PULMONARY: No shortness of breath, no cough, GASTROINTESTINAL: No diarrhea, no nausea, no vomiting, no abdominal pain. NEUROLOGICAL: No headaches, no weakness, PHYSICAL EXAMINATION: GENERAL: The patient is alert and oriented x3, not in any acute distress. Well developed, well nourished. HEENT: Pupils are round and equally reacting to light. EOMI. No scleral icterus. No conjunctival pallor. Normocephalic, atraumatic. No pharyngeal erythema. No thyromegaly. CARDIOVASCULAR: S1 and S2 present. No murmurs, rubs, or gallops. PULMONARY: Diminished breath sounds at left lung base ABDOMEN: Soft, nontender, nondistended, normoactive bowel sounds. No palpable organomegaly. MUSCULOSKELETAL: No joint swelling or deformity. EXTREMITIES: No cyanosis, clubbing, or pedal edema. NEUROLOGICAL: Gross neurological examination did not reveal any focal deficits. SKIN: No rashes. Assessment and plan Elevated troponin; Left pleural effusion Acute hypoxic respiratory failure Continue oxygen supplementation Results of repeat chest x-ray noted this morning. troponin is elevated at 0.141 upon arrival to - Patient has history of coronary artery disease with prior revascularization - EKG does not show any evidence of ischemia; we will monitor EKG and trend troponin - 2-D echo is recommended Cardiology on board for further evaluation Pulmonary consulted 2. Sinus tachycardia/hypotension; likely related to dehydration secondary to diarrhea; cardiology recommending to start patient on a small dose of Toprol-XL 3. C. diff colitis; continue Dificid, follow-up in ID recommendations 4. Electrolyte imbalance/hypokalemia/hyponatremia; potassium replaced in ED; we will monitor electrolytes closely and supplement as needed; slow IV fluid hydration as indicated above 5. Hyperlipidemia; Zetia at 10 mg daily 6. Acute renal injury; BUN/creatinine is elevated at 33/1.2; we will place patient on slow IV fluid hydration; monitor strict BILL's, daily weights, renal function and electrolytes; avoid nephrotoxins and hypotension Labs and medication were reviewed.. Continue same treatment. Continue with symptomatic treatment. Resume home medication. Monitor labs and vitals. DVT and GI prophylaxis. Further recommendations as per clinical course of the patient Objective - Vital Signs Vital signs: Vital Signs Temp 97.4 F L 03/13/23 08:55 Pulse 80 03/13/23 08:55 Resp 20 03/13/23 08:55 BP 110/59 03/13/23 08:55 Pulse Ox 95 03/13/23 08:55 FiO2 Intake & Output 03/12/23 03/13/23 03/13/23 18:59 06:59 18:59 Intake Total 740 118 Balance 740 118 Intake: IV 20 Invasive Line 1 10 Invasive Line 2 10 Oral 720 118 Other: Voiding Method Diaper Diaper External Catheter # Voids 2 1 # Bowel Movements 2 1 1 - Labs CBC & Chem 7: 03/12/23 10:11 03/13/23 06:25 Labs: Abnormal Lab Results - Last 24 Hours (Table) 03/12/23 03/13/23 Range/Units 10:11 06:25 Sodium 132 L 135 L (137-145) mmol/L BUN 23 H 20 H (7-17) mg/dL Creatinine 1.14 H (0.52-1.04) mg/dL Calcium 7.9 L 7.9 L (8.4-10.2) mg/dL HDL Cholesterol 27.80 L (40.00-60.00) mg/dL
--- NOTE | 2023-03-13 14:49 | CT ---
EXAMINATION TYPE: CT chest wo con CT DLP: 469.9 mGycm, Automated exposure control for dose reduction was used. DATE OF EXAM: 03/13/2023 2:33 PM COMPARISON: Chest radiograph from same day CLINICAL INDICATION:Female, 77 years old with history of left lower lobe pneumonia; PHH, left lower l obe pneumonia TECHNIQUE: Multiple axial images were obtained through the chest. Sagittal and coronal reformats were created for review. Contrast used: mL of (None if empty) Oral contrast used: (None if empty) FINDINGS: LUNGS/ PLEURA: Present elevated left diaphragm with associated atelectasis changes. Air bronchograms are present. Small left pleural effusion. The right lung is clear without evidence for focal consolid ation, pneumothorax or pleural effusion. The left upper lobe demonstrate some atelectasis with bronch ovascular crowding in the inferior posterior portion.. AIRWAY: Large airways are grossly unremarkable. There is some her bronchograms in the left lung base. HEART: There is moderately enlarged with coronary artery disease. Cardiac conduction device with lead s terminating in the right ventricle and atrium. Mitral valve annular calcifications are present. MEDIASTINUM: No gross evidence of adenopathy. VASCULATURE: Atherosclerotic calcifications are present throughout the aorta and its branches. MUSCULOSKELETAL: Moderate disc degeneration changes are present throughout the thoracolumbar spine. SOFT TISSUES/LYMPH NODES: Unremarkable. LOWER NECK: No significant findings. UPPER ABDOMEN: The gallbladder surgically absent. IMPRESSION: 1. Elevated left diaphragm with small pleural effusion and associated atelectasis and/or airspace co nsolidation. Correlate for pneumonia. 2. Left diaphragm elevation correlate for paralysis. 3. Moderate cardiomegaly with coronary artery disease.
[2023-03-13 15:19] VITALS: BMI 30.9
--- NOTE | 2023-03-14 03:43 | P.CNPUL ---
History of Present Illness Consult date: 03/14/23 Requesting physician: Manoj De Leon Reason for consult: pleural effusion Chief complaint: Abnormal labs History of present illness: I am seeing this patient in new consultation today 03/14/2023 for a acute hypoxemic respiratory failure and a left pleural effusion. Patient is a 77-year-old white female past medical history significant for heart failure, pacemaker insertion, hyperlipidemia, and is a remote ex-smoker. Denies any history of COPD or asthma. Patient reportedly had a recent prolonged hospital stay at [facility] for pneumonia, she was discharged to [facility] rehab. While at [facility], she did have a C. diff infection a couple weeks ago and was treated at the outside facility with oral vancomycin. Patient did develop a acute kidney injury. Patient was sent to the emergency room on March 11 mostly for hypokalemia. Potassium level on arrival was 3.4 and is up to 3.8. Her acute kidney injury has resolved with fluid resuscitation and stopping the vancomycin. Patient has been started on Dificid. She states that her stool is starting to become more formed. Patient started to experience some increasing oxygen demands yesterday, and a chest x-ray showed a left hemidiaphragm and left pleural effusion with associated atelectasis of the left lower lobe. Patient is currently sitting up in bed, on 4 L/m nasal cannula, in no acute distress. a follow-up chest CT shows a left hemidiaphragm with small left pleural effusion and associated atelectasis versus consolidation. There was also moderate cardiomegaly with coronary artery disease. She denies any fever, chills, cough, chest pain. She does have 3+ bilateral pitting edema. Admits orthopnea when laying flat. She normally takes Lasix 20 mg daily, and this has been on hold for dehydration and CORIN. most recent BMP from yesterday shows sodium of 135, potassium 3.8, chloride 101, serum bicarb 27, BUN 20, creatinine 0.91, glucose 89. NT proBNP was significantly elevated at 16,800. No IV maintenance fluids are infusing. Transthoracic echocardiogram on this admission shows a preserved ejection fraction of 55-60%. There was also moderate pulmonary hypertension and a dilated right ventricle. was also moderate mitral stenosis and moderate mitral regurgitation. Troponins were mildly elevated at 0.094 and 0.081 respectively. Most recent CBC shows a WBC count 17, hemoglobin 10, hematocrit 31.8, platelets 384. Blood pressures had been mildly hypotensive earlier in her admission, and the patient was started on midodrine 3 times a day. Hemodynamically stable at this time. Review of Systems REVIEW OF SYSTEMS: CONSTITUTIONAL: Denies any recent significant weight loss or weight gain. EYES: Denies change in vision. EARS, NOSE, MOUTH, THROAT: Denies headaches, denies sore throat. CARDIOVASCULAR: Denies chest pain, palpitations or syncopal episodes. Admits orthopneaand bilateral lower extremity swelling. RESPIRATORY: Denies shortness of breath, cough, congestion or hemoptysis. GASTROINTESTINAL: Denies change in appetite, abdominal pain, nausea and vomiting. reports improvement in her diarrhea, stools reportedly loose GENITOURINARY: Denies hematuria, denies infections. MUSKULOSKELETAL: Denies pain, denies swelling. INTEGUMENTARY: Denies rash, denies eczema. NEUROLOGICAL: Denies recent memory loss, no recent seizure activity. PSYCHIATRIC: Denies anxiety, denies depression. HEMATOLOGIC/LYMPHATIC: Denies anemia, denies enlarged lymph nodes Past Medical History History of Any Multi-Drug Resistant Organisms: C-DIFF Date of last positivie culture/infection: 03/08/23 MDRO Source:: Unknown Past Surgical History: Joint Replacement, Pacemaker Additional Past Surgical History / Comment(s): Cateract surgery bilaterally, Broken left hip with surgical repair Additional Past Anesthesia/Blood Transfusion Reaction / Comment(s): No transfusions received Type of Cardiac Device: Permanent Pacemaker Device Placement Date:: 2017 Past Psychological History: No Psychological Hx Reported Smoking Status: Former smoker Past Alcohol Use History: None Reported Past Drug Use History: None Reported - Past Family History Sister(s) Family Medical History: COPD Medications and Allergies Home Medications Medication Instructions Recorded Confirmed Type Acetaminophen Tab [Tylenol] 650 mg PO Q4H PRN 03/11/23 03/11/23 History Aspirin EC [Ecotrin Low Dose] 81 mg PO DAILY 03/11/23 03/11/23 History Collagenase [Santyl Ointment] 1 applic TOPICAL DAILY PRN 03/11/23 03/11/23 History Collagenase [Santyl Ointment] 1 applic TOPICAL HS 03/11/23 03/11/23 History Enoxaparin Sodium 40 mg SQ DAILY 03/11/23 03/11/23 History Ezetimibe [Zetia] 10 mg PO DAILY 03/11/23 03/11/23 History Furosemide [Lasix] 20 mg PO DAILY@0600 03/11/23 03/11/23 History Glucerna Shake 1 can PO DAILY 03/11/23 03/11/23 History Melatonin 3 mg PO HS PRN 03/11/23 03/11/23 History Multivitamins, Thera [Multivitamin 1 tab PO DAILY 03/11/23 03/11/23 History (formulary)] Prostat Awc 30 ml PO DAILY 03/11/23 03/11/23 History Vancomycin HCl [Vancocin HCl] 125 mg PO QID 03/11/23 03/11/23 History Zguard 1 applic TOPICAL BID 03/11/23 03/11/23 History diphenhydrAMINE HCL [Benadryl] 25 mg PO BID PRN 03/11/23 03/11/23 History Allergies Allergy/AdvReac Type Severity Reaction Status Date / Time atorvastatin Allergy Unknown Verified 03/11/23 07:48 lisinopril Allergy Unknown Verified 03/11/23 07:48 losartan [From Cozaar] Allergy Unknown Verified 03/11/23 07:48 rosuvastatin [From Crestor] Allergy Unknown Verified 03/11/23 07:48 Physical Exam Vitals: Vital Signs Temp Pulse Resp BP Pulse Ox 03/14/23 00:00 97.8 F 78 16 115/58 95 03/13/23 20:00 97.9 F 73 16 113/63 99 03/13/23 16:00 98.2 F 79 18 113/56 94 L 03/13/23 14:00 87 20 03/13/23 12:05 87 20 95/65 95 03/13/23 08:55 97.4 F L 80 20 110/59 95 03/13/23 04:00 98.0 F 116 H 20 117/65 95 03/13/23 02:18 94 28 H 107/65 94 L 03/13/23 02:00 94 28 H 03/13/23 01:50 98 32 H 120/60 89 L 03/13/23 01:16 98 30 H 105/60 90 L Intake and Output 03/13/23 03/13/23 03/14/23 14:59 22:59 06:59 Intake Total 354 180 Output Total 700 Balance 354 -520 Intake: Oral 354 180 Output: Urine 700 Female - External 700 Other: Voiding Method External Catheter # Voids 1 # Bowel Movements 1 2 Weight 81.647 kg GENERAL EXAM: Alert, 77-year-old white female appearing stated age , comfortable in no apparent distress. HEAD: Normocephalic and atraumatic EYES: Normal reaction of pupils, equal size. NOSE: Clear with pink turbinates. THROAT: No erythema or exudates. NECK: No masses, no JVD. CHEST: No chest wall deformity. LUNGS: Equal air entry with no crackles, wheeze, rhonchi or dullness. There are diminished left lower lung sounds. 4 L/m nasal cannula. No conversational dyspnea or accessory muscle use.. CVS: S1 and S2 normal with no audible murmur, regular rhythm. No extra heart sounds ABDOMEN: No hepatosplenomegaly, active bowel sounds, no guarding or rigidity. SPINE: No scoliosis or deformity SKIN: No rashes CENTRAL NERVOUS SYSTEM: No focal deficits, tone is normal in all 4 extremities. EXTREMITIES: There is no peripheral edema, clubbing, or cyanosis. Peripheral pulses are intact. Results - Laboratory Findings CBC and BMP: 03/12/23 10:11 03/13/23 06:25 PT/INR, D-dimer PT 10.8 sec (9.0-12.0) 03/11/23 00:39 INR 1.0 (<1.2) 03/11/23 00:39 Abnormal lab findings: Abnormal Labs 03/11/23 03/11/23 03/11/23 00:39 00:39 00:39 WBC 14.7 H RBC 3.19 L Hgb 9.6 L Hct 29.5 L Neutrophils # 12.8 H Lymphocytes # 0.6 L Sodium 129 L Potassium 3.4 L Chloride 95 L BUN 33 H Creatinine 1.24 H Glucose 58 L Calcium 7.5 L Troponin I 0.141 H* Total Protein 4.9 L Albumin 2.4 L HDL Cholesterol 03/11/23 03/11/23 03/11/23 04:03 07:51 11:41 WBC RBC Hgb Hct Neutrophils # Lymphocytes # Sodium 130 L Potassium 3.2 L Chloride BUN 29 H Creatinine 1.10 H Glucose Calcium 7.7 L Troponin I 0.094 H* 0.081 H* Total Protein Albumin HDL Cholesterol 03/12/23 03/12/23 03/13/23 10:11 10:11 06:25 WBC 17.0 H RBC 3.34 L Hgb 10.0 L Hct 31.8 L Neutrophils # 15.4 H Lymphocytes # 0.6 L Sodium 132 L 135 L Potassium Chloride BUN 23 H 20 H Creatinine 1.14 H Glucose Calcium 7.9 L 7.9 L Troponin I Total Protein Albumin HDL Cholesterol 27.80 L - Diagnostic Findings Chest x-ray: image reviewed CT scan - chest: image reviewed Assessment and Plan Assessment: Acute hypoxemic respiratory failure likely secondary to mild exacerbation of diastolic congestive heart failure. Currently on 4L/m nasal cannula. Transthoracic echocardiogram on this admission shows a preserved ejection fraction of 55-60%. There was also moderate pulmonary hypertension and a dilated right ventricle. There was also moderate mitral stenosis and moderate mitral regurgitation. NT proBNP was significantly elevated at 16,800. Chest CT shows a left hemidiaphragm with small left pleural effusion and associated atelectasis versus consolidation. There was also moderate cardiomegaly with coronary artery disease. Left hemidiaphragm Small left pleural effusion Elevated Troponins, likely secondary to supply/demand mismatch. No ECG evidence of acute ischemia C. diff colitis, currently on Dificid leukocytosis, likely secondary to above. Acute kidney injury, likely prerenal related to dehydration, improved Hypokalemia, improved Hypotension, improved, currently on midodrine TID. Hyperlipidemia Coronary artery disease history of permanent pacemaker insertion Obesity, BMI 31 plan: Patient's medications, labs, chest x-ray, chest CT reviewed Continue supplemental oxygen to maintain oxygen saturation of 92% or greater Restart patient's home Lasix Doubt the need for thoracentesis Encourage incentive spirometer Check procalcitonin level Continue Dificid per infectious disease Lovenox for DVT prophylaxis We will continue to follow I have personally seen and examined the patient, performed the documentation and the assessment and plan as written. Number of minutes spent on the visit:20 This is a joint evaluation that was done along with the nurse practitioner. The patient is currently comfortable on 4 L of oxygen by nasal cannula. I reviewed the CAT scan of the chest and the patient has a residual consolidation of the left lower lobe in addition to elevation of the left hemidiaphragm suggestive of paralysis and small effusions the left lung base. Nevertheless, the patient is comfortable. Pro-calcitonin level is at 0.19. The patient has C. diff colitis and the patient is currently being treated diarrhea has subsided. The white cell count at 17 with a hemoglobin of 10 at the time of admission repeat CBC is pending. The ends of 20 with a creatinine of 0.9. Sodium levels of 135. ProBNP level is 16,800. I think the finding the left lung are residual from her recent pneumonia that required intubation mechanical ventilation. As such, there is no need for any IV antibiotics. The patient provided incentive spirometer. The patient has to sit up on a chair and aggressive pulmonary tolerating and deep breathing. We'll try to avoid antibiotics pressure the patient's underlying C. diff colitis. We'll continue to follow. No need for thoracentesis at this point in time. Time with Patient: Greater than 30
[2023-03-14] MEDS: MIDODRINE 5 MG TAB PO SCH ×3 (06:12→17:33)
[2023-03-14] MEDS: METOPROLOL SUCCINATE (ER) 25 MG TAB.ER.24H PO SCH (08:41)
[2023-03-14] MEDS: MULTIVITAMINS, THERA 1 EACH TAB PO SCH (08:41)
[2023-03-14] MEDS: FUROSEMIDE 20 MG TAB PO SCH (08:41)
[2023-03-14] MEDS: FIDAXOMICIN 200 MG TABLET PO SCH ×2 (08:41→20:17)
[2023-03-14] MEDS: ASPIRIN 81 MG PO SCH (08:42)
[2023-03-14] MEDS: ENOXAPARIN 40 MG/0.4 ML SYRINGE SQ SCH (08:42)
[2023-03-14] MEDS: EZETIMIBE 10 MG TAB PO SCH (08:42)
--- NOTE | 2023-03-14 14:05 | P.PN ---
Subjective Progress Note Date: 03/14/23 77-year-old female patient with coronary artery disease and prior stenting and permanent pacemaker; follows with a manager surgical at [facility]. She was brought from extended-care facility with complaints of diarrhea for the last few days and she was diagnosed with C. diff diarrhea. Her potassium was low and for that reason she was brought to the hospital because attempted to replace the potassium in the extended-care facility was unsuccessful. Blood work in the ED revealed the troponin was slightly abnormal. Clinically the patient did not have any symptoms of any chest pain or chest discomfort or shortness of breath. The EKG showed ventricular paced rhythm but the underlying rhythm on the EKG was unknown but on the telemetry she seems to have sinus rhythm. Beside that the blood work showed mild renal failure. The patient had no prior cardiac records in this facility and we will know she has any normal renal function in the past. Her potassium continues to be low and that is in process to be replaced. 03/12/2023 Patient has been placed on oral vancomycin for C. diff colitis; white blood count has trended up to 17,000; we will continue with vancomycin and consult ID for final recommendations - Cardiology on board for evaluation of elevated troponin; EKG without any evidence of ischemia; no further workup has been recommended; patient continued to have tachycardia and was placed on Toprol XL with improved heart rate control; we'll further cardiac workup is recommended -Creatinine slowly trending down; we will place patient on IV fluids in form of normal saline at 75 mL an hour; monitor strict BILL's, daily weights, renal function and electrolytes; avoid nephrotoxins and hypotension - Blood pressure has been soft and is slowly improving 03/13. Patient seen and examined. States she gets short of breath on exertion. Denies any chest pain. Does not use any home O2 03/14. Patient seen and examined. States she feels slightly better. Diarrhea has resolved. REVIEW OF SYSTEMS: CONSTITUTIONAL: No fever, no malaise,. CARDIOVASCULAR: No chest pain, no palpitations, no syncope. PULMONARY: No shortness of breath, no cough, GASTROINTESTINAL: no nausea, no vomiting, no abdominal pain. NEUROLOGICAL: No headaches, no weakness, PHYSICAL EXAMINATION: GENERAL: The patient is alert and oriented x3, not in any acute distress. Well developed, well nourished. HEENT: Pupils are round and equally reacting to light. EOMI. No scleral icterus. No conjunctival pallor. Normocephalic, atraumatic. No pharyngeal erythema. No thyromegaly. CARDIOVASCULAR: S1 and S2 present. No murmurs, rubs, or gallops. PULMONARY: Diminished breath sounds at left lung base ABDOMEN: Soft, nontender, nondistended, normoactive bowel sounds. No palpable organomegaly. MUSCULOSKELETAL: No joint swelling or deformity. EXTREMITIES: No cyanosis, clubbing, or pedal edema. NEUROLOGICAL: Gross neurological examination did not reveal any focal deficits. SKIN: No rashes. Assessment and plan Elevated troponin; Left pleural effusion Acute hypoxic respiratory failure Continue oxygen supplementation Strict I's and O's, daily weights and continue Lasix 20 g daily. Follow-up on cardiology recommendations follow-up on pulmonary recommendations 2. Sinus tachycardia/hypotension; likely related to dehydration secondary to diarrhea; cardiology recommending to start patient on a small dose of Toprol-XL 3. C. diff colitis; continue Dificid, follow-up in ID recommendations 4. Electrolyte imbalance/hypokalemia/hyponatremia; potassium replaced in ED; we will monitor electrolytes closely and supplement as needed; slow IV fluid hydration as indicated above 5. Hyperlipidemia; Zetia at 10 mg daily 6. Acute renal injury; monitor renal function Labs and medication were reviewed.. Continue same treatment. Continue with symptomatic treatment. Resume home medication. Monitor labs and vitals. DVT and GI prophylaxis. Further recommendations as per clinical course of the patient Objective - Vital Signs Vital signs: Vital Signs Temp 97.6 F 03/14/23 04:00 Pulse 82 03/14/23 04:00 Resp 16 03/14/23 04:00 BP 112/69 03/14/23 04:00 Pulse Ox 96 03/14/23 10:42 FiO2 Intake & Output 03/13/23 03/14/23 03/14/23 18:59 06:59 18:59 Intake Total 534 Output Total 700 Balance -166 Weight 81.647 kg Intake: Oral 534 Output: Urine 700 Female - External 700 Other: Voiding Method External Catheter # Voids 1 # Bowel Movements 2 - Labs CBC & Chem 7: 03/12/23 10:11 03/13/23 06:25 Labs: Abnormal Lab Results - Last 24 Hours (Table) 03/14/23 Range/Units 00:13 Procalcitonin 0.19 H (0.02-0.09) ng/mL
--- NOTE | 2023-03-14 15:18 | P.PN ---
Subjective Progress Note Date: 03/13/23 Principal diagnosis: C. diff colitis Patient is a 77-year-old female was recently diagnosed with C. difficile colitis at the local skilled nursing and the patient has been started on oral vancomycin subsequently presented to hospital with electrolyte abnormality noticed to have worsening of the white count that prompted this infection disease consultation patient also have a chest x-ray with large left effusion warrants pulmonary has been consulted CT has been ordered On today's evaluation that is 03/13/2023, the patient denies having any fever or any chills, the patient is currently breathing comfortably on 3 L nasal cannula oxygen, the patient denies having any chest pain occasional cough no abdominal pain, the patient diarrhea has slowed down Objective - Vital Signs Vital signs: Vital Signs Temp 97.4 F L 03/13/23 08:55 Pulse 87 03/13/23 12:05 Resp 20 03/13/23 12:05 BP 95/65 03/13/23 12:05 Pulse Ox 95 03/13/23 12:05 FiO2 Intake & Output 03/12/23 03/13/23 03/13/23 18:59 06:59 18:59 Intake Total 740 118 Balance 740 118 Intake: IV 20 Invasive Line 1 10 Invasive Line 2 10 Oral 720 118 Other: Voiding Method Diaper Diaper External Catheter # Voids 2 1 # Bowel Movements 2 1 1 - Exam GENERAL DESCRIPTION: An elderly female lying in bed in no distress RESPIRATORY SYSTEM: Unlabored breathing , decreased breath sounds at bases HEART: S1 S2 regular rate and rhythm , ABDOMEN: Soft , no tenderness EXTREMITIES: No edema feet - Labs CBC & Chem 7: 03/12/23 10:11 03/13/23 06:25 Labs: Abnormal Lab Results - Last 24 Hours (Table) 03/12/23 03/13/23 Range/Units 10:11 06:25 Sodium 135 L (137-145) mmol/L BUN 20 H (7-17) mg/dL Calcium 7.9 L (8.4-10.2) mg/dL HDL Cholesterol 27.80 L (40.00-60.00) mg/dL Assessment and Plan (1) C. difficile colitis Current Visit: No Status: Acute Code(s): A04.72 - ENTEROCOLITIS D/T CLOSTRIDIUM DIFFICILE, NOT SPCF RECUR SNOMED Code(s): 254432424 Plan: 1patient presented to hospital with low potassium in this patient with a recent diagnosis of ulcerative colitis and has been treated with oral vancomycin patient continued to have significant diarrhea despite being on oral vancomycin was noticed to have worsening of the white count, patient is also complaining of shortness of breath and is hypoxic but no significant cough to be suspicious for pneumonia. 2patient to continue with Dificid [address] chest and procalcitonin Time with Patient: Less than 30
--- NOTE | 2023-03-14 15:21 | P.PN ---
Subjective Progress Note Date: 03/14/23 Principal diagnosis: C. diff colitis Patient is a 77-year-old female was recently [facility]. [facility] and the patient has been started on oral vancomycin subsequently presented to hospital with electrolyte abnormality noticed to have worsening of the white count that prompted this infection disease consultation patient also have a chest x-ray with large left effusion warrants pulmonary has been consulted CT has been ordered On today's evaluation that is 03/14/2023, the patient remains to be afebrile, the patient is breathing comfortably on 3 L nasal cannula oxygen, the patient denies having any chest pain, the patient did have occasional cough no abdominal pain, the patient diarrhea has improved no bowel movement today feeling better wants to go home Objective - Vital Signs Vital signs: Vital Signs Temp 96.7 F L 03/14/23 08:00 Pulse 89 03/14/23 12:00 Resp 16 03/14/23 12:00 BP 118/69 03/14/23 12:00 Pulse Ox 96 03/14/23 12:00 FiO2 Intake & Output 03/13/23 03/14/23 03/14/23 18:59 06:59 18:59 Intake Total 534 Output Total 700 Balance -166 Weight 81.647 kg Intake: Oral 534 Output: Urine 700 Female - External 700 Other: Voiding Method External Catheter External Catheter # Voids 1 # Bowel Movements 2 - Exam GENERAL DESCRIPTION: An elderly female lying in bed in no distress RESPIRATORY SYSTEM: Unlabored breathing , decreased breath sounds at bases HEART: S1 S2 regular rate and rhythm , ABDOMEN: Soft , no tenderness EXTREMITIES: No edema feet - Labs CBC & Chem 7: 03/12/23 10:11 03/13/23 06:25 Labs: Abnormal Lab Results - Last 24 Hours (Table) 03/14/23 Range/Units 00:13 Procalcitonin 0.19 H (0.02-0.09) ng/mL Assessment and Plan (1) C. difficile colitis Current Visit: No Status: Acute Code(s): A04.72 - ENTEROCOLITIS D/T CLOSTRIDIUM DIFFICILE, NOT SPCF RECUR SNOMED Code(s): 872247330 Plan: 1patient presented to hospital with low potassium in this patient with a recent diagnosis of ulcerative colitis and has been treated with oral vancomycin patient continued to have significant diarrhea despite being on oral vancomycin was noticed to have worsening of the white count, patient is also complaining of shortness of breath and is hypoxic but no significant cough to be suspicious for pneumonia. 2patient chest x-ray with the large left effusion CT of the chest did shows effusion concerning for possible consolidation and pneumonia however the patient did not have any productive cough and procalcitonin is only 0.19 clinically doubt pneumonia 3-patient did have improvement in her diarrhea with the deficid to continue to finish a ten-day course of therapy Time with Patient: Less than 30
[2023-03-15] MEDS: MIDODRINE 5 MG TAB PO SCH ×3 (06:36→17:32)
[2023-03-15] MEDS: ENOXAPARIN 40 MG/0.4 ML SYRINGE SQ SCH (08:41)
[2023-03-15] MEDS: ASPIRIN 81 MG PO SCH (08:42)
[2023-03-15] MEDS: METOPROLOL SUCCINATE (ER) 25 MG TAB.ER.24H PO SCH (08:42)
[2023-03-15] MEDS: EZETIMIBE 10 MG TAB PO SCH (08:42)
[2023-03-15] MEDS: FIDAXOMICIN 200 MG TABLET PO SCH ×2 (08:42→21:15)
[2023-03-15] MEDS: FUROSEMIDE 20 MG TAB PO SCH (08:42)
[2023-03-15] MEDS: MULTIVITAMINS, THERA 1 EACH TAB PO SCH (08:42)
[2023-03-15 10:49] LABS: ALT 15 U/L (4-34); AST 21 U/L (14-36); African American GFR (CKD) 74 (>60 ml/min/1.73 sqM); Albumin 2.6 g/dL (3.5-5.0); Alkaline Phosphatase 78 U/L (38-126); Anion Gap 2 mmol/L; Blood Urea Nitrogen 15 mg/dL (7-17); Calcium 8.2 mg/dL (8.4-10.2); Carbon Dioxide 36 mmol/L (22-30); Chloride 99 mmol/L (98-107); Glucose 94 mg/dL (74-99); HCT 33.3 % (34.0-46.0); HGB 10.7 gm/dL (11.4-16.0); Hypochromasia Moderate; MCH 30.3 pg (25.0-35.0); MCHC 32.2 g/dL (31.0-37.0); MCV 94.2 fL (80.0-100.0); Mean Platelet Volume 7.2; Non-African American GFR(CKD) 64 (>60 ml/min/1.73 sqM); Platelet Count 381 k/uL (150-450); Poikilocytosis Slight; Potassium 4.3 mmol/L (3.5-5.1); RBC 3.53 m/uL (3.80-5.40); RDW 15.6 % (11.5-15.5); Sodium 137 mmol/L (137-145); Total Bilirubin 0.3 mg/dL (0.2-1.3); Total Protein 5.2 g/dL (6.3-8.2); WBC 8.7 k/uL (3.8-10.6)
[2023-03-15 12:22] LABS: Band Neutrophils % 2 %; Eosinophils # (M) 0.26 k/uL (0-0.7); Lymphocytes # (M) 0.61 k/uL (1.0-4.8); Metamyelocytes # (M) 0.35 k/uL (0); Metamyelocytes % 4 %; Monocytes # (M) 0.26 k/uL (0-1.0); Myelocytes # (M) 0.35 k/uL (0); Myelocytes % 4 %; Neutrophils % (M) 79 %; Nucleated Red Blood Cells 0 /100 WBC (0-0); Total Cells Counted 200
[2023-03-15 12:23] LABS: Toxic Granulation Present
--- NOTE | 2023-03-15 14:23 | P.PN ---
Subjective Progress Note Date: 03/15/23 77-year-old female patient with coronary artery disease and prior stenting and permanent pacemaker; follows with a residence manager at [facility]. She was brought from extended-care facility with complaints of diarrhea for the last few days and she was diagnosed with C. diff diarrhea. Her potassium was low and for that reason she was brought to the hospital because attempted to replace the potassium in the extended-care facility was unsuccessful. Blood work in the ED revealed the troponin was slightly abnormal. Clinically the patient did not have any symptoms of any chest pain or chest discomfort or shortness of breath. The EKG showed ventricular paced rhythm but the underlying rhythm on the EKG was unknown but on the telemetry she seems to have sinus rhythm. Beside that the blood work showed mild renal failure. The patient had no prior cardiac records in this facility and we will know she has any normal renal function in the past. Her potassium continues to be low and that is in process to be replaced. 03/12/2023 Patient has been placed on oral vancomycin for C. diff colitis; white blood count has trended up to 17,000; we will continue with vancomycin and consult ID for final recommendations - Cardiology on board for evaluation of elevated troponin; EKG without any evidence of ischemia; no further workup has been recommended; patient continued to have tachycardia and was placed on Toprol XL with improved heart rate control; we'll further cardiac workup is recommended -Creatinine slowly trending down; we will place patient on IV fluids in form of normal saline at 75 mL an hour; monitor strict BILL's, daily weights, renal function and electrolytes; avoid nephrotoxins and hypotension - Blood pressure has been soft and is slowly improving 03/13. Patient seen and examined. States she gets short of breath on exertion. Denies any chest pain. Does not use any home O2 03/14. Patient seen and examined. States she feels slightly better. Diarrhea has resolved. 03/15. Patient seen and examined. Continues to feel better. Oxygen maintained on 2 L. Swelling of legs is also improved. No diarrhea. REVIEW OF SYSTEMS: CONSTITUTIONAL: No fever, no malaise,. CARDIOVASCULAR: No chest pain, no palpitations, no syncope. PULMONARY: No shortness of breath, no cough, GASTROINTESTINAL: no nausea, no vomiting, no abdominal pain. NEUROLOGICAL: No headaches, no weakness, PHYSICAL EXAMINATION: GENERAL: The patient is alert and oriented x3, not in any acute distress. Well developed, well nourished. HEENT: Pupils are round and equally reacting to light. EOMI. No scleral icterus. No conjunctival pallor. Normocephalic, atraumatic. No pharyngeal erythema. No thyromegaly. CARDIOVASCULAR: S1 and S2 present. No murmurs, rubs, or gallops. PULMONARY: Diminished breath sounds at left lung base ABDOMEN: Soft, nontender, nondistended, normoactive bowel sounds. No palpable organomegaly. MUSCULOSKELETAL: No joint swelling or deformity. EXTREMITIES: No cyanosis, clubbing, or pedal edema. NEUROLOGICAL: Gross neurological examination did not reveal any focal deficits. SKIN: No rashes. Assessment and plan Elevated troponin; Left pleural effusion Acute hypoxic respiratory failure Continue oxygen supplementation Strict I's and O's, daily weights and continue Lasix 20 g daily. Follow-up on cardiology recommendations , recommend no ischemic workup follow-up on pulmonary recommendations 2. Sinus tachycardia/hypotension; likely related to dehydration secondary to diarrhea; cardiology recommending to start patient on a small dose of Toprol-XL 3. C. diff colitis; continue Dificid, follow-up in ID recommendations 4. Electrolyte imbalance/hypokalemia/hyponatremia; potassium replaced in ED; we will monitor electrolytes closely and supplement as needed; slow IV fluid hy dration as indicated above 5. Hyperlipidemia; Zetia at 10 mg daily 6. Acute renal injury; monitor renal function Labs and medication were reviewed.. Continue same treatment. Continue with symptomatic treatment. Resume home medication. Monitor labs and vitals. DVT and GI prophylaxis. Further recommendations as per clinical course of the patient Objective - Vital Signs Vital signs: Vital Signs Temp 98 F 03/15/23 08:00 Pulse 95 03/15/23 08:00 Resp 20 03/15/23 08:00 BP 119/59 03/15/23 08:00 Pulse Ox 96 03/15/23 08:00 FiO2 Intake & Output 03/14/23 03/15/23 03/15/23 18:59 06:59 18:59 Intake Total 472 240 Output Total 500 800 Balance -28 -800 240 Intake: Oral 472 240 Output: Urine 500 800 Other: Voiding Method External Catheter # Bowel Movements 1 - Labs CBC & Chem 7: 03/15/23 10:01 03/15/23 10:01
--- NOTE | 2023-03-15 14:56 | P.PN ---
Subjective Progress Note Date: 03/15/23 I am seeing this patient in new consultation today 03/14/2023 for a acute hypoxemic respiratory failure and a left pleural effusion. Patient is a 77-year-old white female past medical history significant for heart failure, pacemaker insertion, hyperlipidemia, and is a remote ex-smoker. Denies any history of COPD or asthma. Patient reportedly had a recent prolonged hospital stay at [facility] for pneumonia, she was discharged to [facility] rehab. While at [facility], she did have a C. diff infection a couple weeks ago and was treated at the outside facility with oral vancomycin. Patient did develop a acute kidney injury. Patient was sent to the emergency room on March 11 mostly for hypokalemia. Potassium level on arrival was 3.4 and is up to 3.8. Her acute kidney injury has resolved with fluid resuscitation and stopping the vancomycin. Patient has been started on Dificid. She states that her stool is starting to become more formed. Patient started to experience some increasing oxygen demands yesterday, and a chest x-ray showed a left hemidiaphragm and left pleural effusion with associated atelectasis of the left lower lobe. Patient is currently sitting up in bed, on 4 L/m nasal cannula, in no acute distress. a follow-up chest CT shows a left hemidiaphragm with small left pleural effusion and associated atelectasis versus consolidation. There was also moderate cardiomegaly with coronary artery disease. She denies any fever, chills, cough, chest pain. She does have 3+ bilateral pitting edema. Admits orthopnea when laying flat. She normally takes Lasix 20 mg daily, and this has been on hold for dehydration and CORIN. most recent BMP from yesterday shows sodium of 135, pot assium 3.8, chloride 101, serum bicarb 27, BUN 20, creatinine 0.91, glucose 89. NT proBNP was significantly elevated at 16,800. No IV maintenance fluids are infusing. Transthoracic echocardiogram on this admission shows a preserved ejection fraction of 55-60%. There was also moderate pulmonary hypertension and a dilated right ventricle. was also moderate mitral stenosis and moderate mitral regurgitation. Troponins were mildly elevated at 0.094 and 0.081 respectively. Most recent CBC shows a WBC count 17, hemoglobin 10, hematocrit 31.8, platelets 384. Blood pressures had been mildly hypotensive earlier in her admission, and the patient was started on midodrine 3 times a day. Hemodynamically stable at this time. On today's evaluation of 03/15/2023, the patient is feeling well. Diarrhea has subsided. She denies having any respiratory complaints or any respiratory difficulties and the patient remains on 2 L of oxygen by nasal cannula. No reported nausea or vomiting. No abdominal pain. The white suppositive 0.7 with a hemoglobin of 10.7 and a platelet count of 381. The patient is a sodium level of 137, BUN is at 50 with a creatinine of 0.8. Pro-calcitonin level is at 0.19. The patient remains on antibiotics utilizing Dificid 200 mg by mouth twice a day. She is also on Lovenox 40 mg subcu for DVT prophylaxis. She is using the incentive spirometer. Objective - Vital Signs Vital signs: Vital Signs Temp 98 F 03/15/23 08:00 Pulse 95 03/15/23 08:00 Resp 20 03/15/23 08:00 BP 119/59 03/15/23 08:00 Pulse Ox 96 03/15/23 08:00 FiO2 Intake & Output 03/14/23 03/15/23 03/15/23 18:59 06:59 18:59 Intake Total 472 240 Output Total 500 800 Balance -28 -800 240 Weight 81.647 kg Intake: Oral 472 240 Output: Urine 500 800 Other: Voiding Method External Catheter # Bowel Movements 1 - Exam GENERAL EXAM: Alert, 77-year-old white female appearing stated age , comfortable in no apparent distress. The patient has been transitioned from 4 L of 2 L and currently still on room air oxygen. HEAD: Normocephalic and atraumatic EYES: Normal reaction of pupils, equal size. NOSE: Clear with pink turbinates. THROAT: No erythema or exudates. NECK: No masses, no JVD. CHEST: No chest wall deformity. LUNGS: Equal air entry with no crackles, wheeze, rhonchi or dullness. There are diminished left lower lung sounds. 4 L/m nasal cannula. No conversational dyspnea or accessory muscle use.. CVS: S1 and S2 normal with no audible murmur, regular rhythm. No extra heart sounds ABDOMEN: No hepatosplenomegaly, active bowel sounds, no guarding or rigidity. SPINE: No scoliosis or deformity SKIN: No rashes CENTRAL NERVOUS SYSTEM: No focal deficits, tone is normal in all 4 extremities. EXTREMITIES: There is no peripheral edema, clubbing, or cyanosis. Peripheral pulses are intact. - Labs CBC & Chem 7: 03/15/23 10:01 03/15/23 10:01 Labs: Abnormal Lab Results - Last 24 Hours (Table) 03/15/23 03/15/23 Range/Units 10:01 10:01 RBC 3.53 L (3.80-5.40) m/uL Hgb 10.7 L (11.4-16.0) gm/dL Hct 33.3 L (34.0-46.0) % RDW 15.6 H (11.5-15.5) % Carbon Dioxide 36 H (22-30) mmol/L Calcium 8.2 L (8.4-10.2) mg/dL Total Protein 5.2 L (6.3-8.2) g/dL Albumin 2.6 L (3.5-5.0) g/dL Assessment and Plan Assessment: Acute hypoxemic respiratory failure likely secondary to mild exacerbation of diastolic congestive heart failure. Currently on 4L/m nasal cannula. Transthoracic echocardiogram on this admission shows a preserved ejection fraction of 55-60%. There was also moderate pulmonary hypertension and a dilated right ventricle. There was also moderate mitral stenosis and moderate mitral regurgitation. NT proBNP was significantly elevated at 16,800. Chest CT shows a left hemidiaphragm with small left pleural effusion and associated atelectasis versus consolidation. There was also moderate cardiomegaly with coronary artery disease. The patient is improved. The patient was able to use incentive spirometer and do deep breathing. She is currently down to 2 L and I even transitioned her to room air oxygen. She does have some chronic int erstitial infiltrates and opacity in the left lung related to previous hospitalization for pneumonia . No acute or active pneumonia at this point in time at least on clinical grounds Left hemidiaphragm Small left pleural effusion Elevated Troponins, likely secondary to supply/demand mismatch. No ECG evidence of acute ischemia C. diff colitis, currently on Dificid, improving leukocytosis, likely secondary to above, improved Acute kidney injury, likely prerenal related to dehydration, improved Hypokalemia, improved Hypotension, improved, currently on midodrine TID. Hyperlipidemia Coronary artery disease history of permanent pacemaker insertion Obesity, BMI 31 plan: Continue using incentive spirometer Oxygenation is improving and the patient is currently down to 2 L and possibly to room air No need for thoracentesis Check procalcitonin level Continue Dificid per infectious disease Lovenox for DVT prophylaxis White cell count is improving Renal function is improved Oxygenation is improved We will continue to follow
[2023-03-16] MEDS: MIDODRINE 5 MG TAB PO SCH ×2 (06:20→12:32)
[2023-03-16 09:32] VITALS: BP 112/63; PULSE 88; RESP 18; TEMP 98.3
[2023-03-16] MEDS: FIDAXOMICIN 200 MG TABLET PO SCH (09:32)
[2023-03-16] MEDS: ASPIRIN 81 MG PO SCH (09:32)
[2023-03-16] MEDS: EZETIMIBE 10 MG TAB PO SCH (09:33)
[2023-03-16] MEDS: MULTIVITAMINS, THERA 1 EACH TAB PO SCH (09:33)
[2023-03-16] MEDS: ENOXAPARIN 40 MG/0.4 ML SYRINGE SQ SCH (09:33)
[2023-03-16] MEDS: FUROSEMIDE 20 MG TAB PO SCH (09:33)
[2023-03-16] MEDS: METOPROLOL SUCCINATE (ER) 25 MG TAB.ER.24H PO SCH (09:33)
--- NOTE | 2023-03-16 13:31 | P.DS ---
Providers Date of admission: 03/11/23 03:06 Expected date of discharge: 03/16/23 Attending physician: Antonio Sharma Consults: 03/11/23 03:06 Consult Physician Routine Consulting Provider: Alyssa Mcmillan Consult Reason/Comments: elevated troponin Do you want consulting provider notified?: Yes 03/12/23 14:52 Consult Physician Routine Consulting Provider: Yoel Rico Consult Reason/Comments: worsening leukocytosis/C diff colitis Do you want consulting provider notified?: Yes 03/13/23 13:09 Consult Physician Routine Consulting Provider: Rosina Oliver Consult Reason/Comments: large left pleural effusion Do you want consulting provider notified?: Yes, Notify in am Primary care physician: Juan Carlos Gordillo Hospital Course: Discharge diagnoses; Elevated troponin; Left pleural effusion Acute hypoxic respiratory failure Continue oxygen supplementation continue Lasix 20 g daily. Follow-up on cardiology recommendations , recommend no ischemic workup follow-up on pulmonary recommendations 2. Sinus tachycardia/hypotension; resolved 3. C. diff colitis; continue Dificid, follow-up in ID recommendations 4. Electrolyte imbalance resolved 5. Hyperlipidemia; Zetia at 10 mg daily 6. Acute renal injury; resolved Hospital course; 77-year-old female patient with coronary artery disease and prior stenting and permanent pacemaker; follows with a windows server engineer at [facility]. She was brought from extended-care facility with complaints of diarrhea for the last few days and she was diagnosed with C. diff diarrhea. Her potassium was low and for that reason she was brought to the hospital because attempted to replace the potassium in the extended-care facility was unsuccessful. Blood work in the ED revealed the troponin was slightly abnormal. Clinically the patient did not have any symptoms of any chest pain or chest discomfort or shortness of breath. The EKG showed ventricular paced rhythm but the underlying rhythm on the EKG was unknown but on the telemetry she seems to have sinus rhythm. Beside that the blood work showed mild renal failure. The patient had no prior cardiac records in this facility and we will know she has any normal renal function in the past. Her potassium continues to be low and that is in process to be replaced. 03/12/2023 Patient has been placed on oral vancomycin for C. diff colitis; white blood count has trended up to 17,000; we will continue with vancomycin and consult ID for final recommendations - Cardiology on board for evaluation of elevated troponin; EKG without any evidence of ischemia; no further workup has been recommended; patient continued to have tachycardia and was placed on Toprol XL with improved heart rate control; we'll further cardiac workup is recommended -Creatinine slowly trending down; we will place patient on IV fluids in form of normal saline at 75 mL an hour; monitor strict BILL's, daily weights, renal function and electrolytes; avoid nephrotoxins and hypotension - Blood pressure has been soft and is slowly improving 03/13. Patient seen and examined. States she gets short of breath on exertion. Denies any chest pain. Does not use any home O2 03/14. Patient seen and examined. States she feels slightly better. Diarrhea has resolved. 03/15. Patient seen and examined. Continues to feel better. Oxygen maintained on 2 L. Swelling of legs is also improved. No diarrhea. 03/16. Patient seen and examined. Continue to improve, being discharged to rehab to complete the course of Dificid. PHYSICAL EXAMINATION: GENERAL: The patient is alert and oriented x3, not in any acute distress. Well developed, well nourished. HEENT: Pupils are round and equally reacting to light. EOMI. No scleral icterus. No conjunctival pallor. Normocephalic, atraumatic. No pharyngeal erythema. No thyromegaly. CARDIOVASCULAR: S1 and S2 present. No murmurs, rubs, or gallops. PULMONARY: Chest is clear to auscultation, no wheezing or crackles. ABDOMEN: Soft, nontender, nondistended, normoactive bowel sounds. No palpable organomegaly. MUSCULOSKELETAL: No joint swelling or deformity. EXTREMITIES: No cyanosis, clubbing, or pedal edema. NEUROLOGICAL: Gross neurological examination did not reveal any focal deficits. SKIN: No rashes. Patient Condition at Discharge: Fair Plan - Discharge Summary Discharge Rx Participant: No New Discharge Prescriptions: New Midodrine [ProAmatine] 10 mg PO AC-TID #21 tab Fidaxomicin [Dificid] 200 mg PO BID 6 Days #12 tab Metoprolol Succinate (ER) [Toprol XL] 12.5 mg PO DAILY #30 tab Continue Furosemide [Lasix] 20 mg PO DAILY@0600 Aspirin EC [Ecotrin Low Dose] 81 mg PO DAILY Prostat Awc 30 ml PO DAILY Acetaminophen Tab [Tylenol] 650 mg PO Q4H PRN PRN Reason: Pain Collagenase [Santyl Ointment] 1 applic TOPICAL DAILY PRN PRN Reason: wound care Glucerna Shake 1 can PO DAILY Melatonin 3 mg PO HS PRN PRN Reason: Insomnia Multivitamins, Thera [Multivitamin (formulary)] 1 tab PO DAILY Ezetimibe [Zetia] 10 mg PO DAILY Enoxaparin Sodium 40 mg SQ DAILY Zguard 1 applic TOPICAL BID diphenhydrAMINE HCL [Benadryl] 25 mg PO BID PRN PRN Reason: itching/nausea Discontinued Vancomycin HCl [Vancocin HCl] 125 mg PO QID Collagenase [Santyl Ointment] 1 applic TOPICAL HS Discharge Medication List Acetaminophen Tab [Tylenol] 650 mg PO Q4H PRN 03/11/23 [History] Aspirin EC [Ecotrin Low Dose] 81 mg PO DAILY 03/11/23 [History] Collagenase [Santyl Ointment] 1 applic TOPICAL DAILY PRN 03/11/23 [History] Enoxaparin Sodium 40 mg SQ DAILY 03/11/23 [History] Ezetimibe [Zetia] 10 mg PO DAILY 03/11/23 [History] Furosemide [Lasix] 20 mg PO DAILY@0600 03/11/23 [History] Glucerna Shake 1 can PO DAILY 03/11/23 [History] Melatonin 3 mg PO HS PRN 03/11/23 [History] Multivitamins, Thera [Multivitamin (formulary)] 1 tab PO DAILY 03/11/23 [History] Prostat Awc 30 ml PO DAILY 03/11/23 [History] Zguard 1 applic TOPICAL BID 03/11/23 [History] diphenhydrAMINE HCL [Benadryl] 25 mg PO BID PRN 03/11/23 [History] Fidaxomicin [Dificid] 200 mg PO BID 6 Days #12 tab 03/16/23 [Rx] Metoprolol Succinate (ER) [Toprol XL] 12.5 mg PO DAILY #30 tab 03/16/23 [Rx] Midodrine [ProAmatine] 10 mg PO AC-TID #21 tab 03/16/23 [Rx] Follow up Appointment(s)/Referral(s): Juan Carlos Gordillo MD [Primary Care Provider] - 1-2 days [facility], [NON-STAFF] - As Needed Yoel Rico MD [STAFF PHYSICIAN] - 1 Week Rosina Oliver MD [STAFF PHYSICIAN] - 1 Week Discharge Disposition: TRANSFER TO SNF/ECF
--- NOTE | 2023-03-16 16:36 | P.PN ---
Subjective Progress Note Date: 03/16/23 I am seeing this patient in new consultation today 03/14/2023 for a acute hypoxemic respiratory failure and a left pleural effusion. Patient is a 77-year-old white female past medical history significant for heart failure, pacemaker insertion, hyperlipidemia, and is a remote ex-smoker. Denies any history of COPD or asthma. Patient reportedly had a recent prolonged hospital stay at [facility] for pneumonia, she was discharged to [facility] rehab. While at [facility], she did have a C. diff infection a couple weeks ago and was treated at the outside facility with oral vancomycin. Patient did develop a acute kidney injury. Patient was sent to the emergency room on March 11 mostly for hypokalemia. Potassium level on arrival was 3.4 and is up to 3.8. Her acute kidney injury has resolved with fluid resuscitation and stopping the vancomycin. Patient has been started on Dificid. She states that her stool is starting to become more formed. Patient started to experience some increasing oxygen demands yesterday, and a chest x-ray showed a left hemidiaphragm and left pleural effusion with associated atelectasis of the left lower lobe. Patient is currently sitting up in bed, on 4 L/m nasal cannula, in no acute distress. a follow-up chest CT shows a left hemidiaphragm with small left pleural effusion and associated atelectasis versus consolidation. There was also moderate cardiomegaly with coronary artery disease. She denies any fever, chills, cough, chest pain. She does have 3+ bilateral pitting edema. Admits orthopnea when laying flat. She normally takes Lasix 20 mg daily, and this has been on hold for dehydration and CORIN. most recent BMP from yesterday shows sodium of 135, pot assium 3.8, chloride 101, serum bicarb 27, BUN 20, creatinine 0.91, glucose 89. NT proBNP was significantly elevated at 16,800. No IV maintenance fluids are infusing. Transthoracic echocardiogram on this admission shows a preserved ejection fraction of 55-60%. There was also moderate pulmonary hypertension and a dilated right ventricle. was also moderate mitral stenosis and moderate mitral regurgitation. Troponins were mildly elevated at 0.094 and 0.081 respectively. Most recent CBC shows a WBC count 17, hemoglobin 10, hematocrit 31.8, platelets 384. Blood pressures had been mildly hypotensive earlier in her admission, and the patient was started on midodrine 3 times a day. Hemodynamically stable at this time. On today's evaluation of 03/15/2023, the patient is feeling well. Diarrhea has subsided. She denies having any respiratory complaints or any respiratory difficulties and the patient remains on 2 L of oxygen by nasal cannula. No reported nausea or vomiting. No abdominal pain. The white suppositive 0.7 with a hemoglobin of 10.7 and a platelet count of 381. The patient is a sodium level of 137, BUN is at 50 with a creatinine of 0.8. Pro-calcitonin level is at 0.19. The patient remains on antibiotics utilizing Dificid 200 mg by mouth twice a day. She is also on Lovenox 40 mg subcu for DVT prophylaxis. She is using the incentive spirometer. 03/16/2023, no new complaints and the patient's condition is stable. No respiratory difficulties. Diarrhea has subsided and the patient has no specific complaints. Remains on Dificid. No antibiotics otherwise. No new labs obtained from today. Discharge planning is in progress. Objective - Vital Signs Vital signs: Vital Signs Temp 98.3 F 03/16/23 08:30 Pulse 88 03/16/23 08:30 Resp 18 03/16/23 08:30 BP 112/63 03/16/23 08:30 Pulse Ox 96 03/16/23 08:53 FiO2 Intake & Output 03/15/23 03/16/23 03/16/23 18:59 06:59 18:59 Intake Total 840 480 Output Total 400 50 Balance 840 -400 430 Weight 81.647 kg Intake: Oral 840 480 Output: Urine 400 Stool 50 Other: Voiding Method External Catheter - Exam GENERAL EXAM: Alert, 77-year-old white female appearing stated age , comfortable in no apparent distress. The patient has been transitioned from 4 L of 2 L and currently still on room air oxygen. HEAD: Normocephalic and atraumatic EYES: Normal reaction of pupils, equal size. NOSE: Clear with pink turbinates. THROAT: No erythema or exudates. NECK: No masses, no JVD. CHEST: No chest wall deformity. LUNGS: Equal air entry with no crackles, wheeze, rhonchi or dullness. There are diminished left lower lung sounds. 4 L/m nasal cannula. No conversational dyspnea or accessory muscle use.. CVS: S1 and S2 normal with no audible murmur, regular rhythm. No extra heart sounds ABDOMEN: No hepatosplenomegaly, active bowel sounds, no guarding or rigidity. SPINE: No scoliosis or deformity SKIN: No rashes CENTRAL NERVOUS SYSTEM: No focal deficits, tone is normal in all 4 extremities. EXTREMITIES: There is no peripheral edema, clubbing, or cyanosis. Peripheral pulses are intact. - Labs CBC & Chem 7: 03/15/23 10:01 03/15/23 10:01 Labs: Abnormal Lab Results - Last 24 Hours (Table) 03/15/23 03/15/23 Range/Units 10: 10:01 RBC 3.53 L (3.80-5.40) m/uL Hgb 10.7 L (11.4-16.0) gm/dL Hct 33.3 L (34.0-46.0) % RDW 15.6 H (11.5-15.5) % Lymphocytes # (Manual) 0.61 L (1.0-4.8) k/uL Metamyelocytes # (Man) 0.35 H (0) k/uL Myelocytes # (Manual) 0.35 H (0) k/uL Carbon Dioxide 36 H (22-30) mmol/L Calcium 8.2 L (8.4-10.2) mg/dL Total Protein 5.2 L (6.3-8.2) g/dL Albumin 2.6 L (3.5-5.0) g/dL Assessment and Plan Assessment: Acute hypoxemic respiratory failure likely secondary to mild exacerbation of diastolic congestive heart failure. Currently on 4L/m nasal cannula. Transthoracic echocardiogram on this admission shows a preserved ejection fra ction of 55-60%. There was also moderate pulmonary hypertension and a dilated right ventricle. There was also moderate mitral stenosis and moderate mitral regurgitation. NT proBNP was significantly elevated at 16,800. Chest CT shows a left hemidiaphragm with small left pleural effusion and associated atelectasis versus consolidation. There was also moderate cardiomegaly with coronary artery disease. The patient is improved. The patient was able to use incentive spirometer and do deep breathing. She is currently down to 2 L and I even transitioned her to room air oxygen. She does have some chronic interstitial infiltrates and opacity in the left lung related to previous hospitalization for pneumonia . No acute or active pneumonia at this point in time at least on clinical grounds Left hemidiaphragm Small left pleural effusion Elevated Troponins, likely secondary to supply/demand mismatch. No ECG evidence of acute ischemia C. diff colitis, currently on Dificid, improving leukocytosis, likely secondary to above, improved Acute kidney injury, likely prerenal related to dehydration, improved Hypokalemia, improved Hypotension, improved, currently on midodrine TID. Hyperlipidemia Coronary artery disease history of permanent pacemaker insertion Obesity, BMI 31 plan: Clinically stable Diarrhea is subsiding Currently on 2 L of oxygen by nasal cannula. We will do a home O2 evaluation. Continue using incentive spirometer No need for thoracentesis Check procalcitonin level Continue Dificid per infectious disease Lovenox for DVT prophylaxis White cell count is improving Renal function is improved Oxygenation is improved We will continue to follow Recommend outpatient chest x-ray within the next 2-3 weeks and outpatient pulmonary follow-up regarding the abnormalities in her left lung.
--- NOTE | 2023-03-23 22:51 | P.PN ---
Subjective Progress Note Date: 03/15/23 Principal diagnosis: C. diff colitis Patient is a 77-year-old female was recently diagnosed with C. difficile colitis at the local alf and the patient has been started on oral vancomycin subsequently presented to hospital with electrolyte abnormality noticed to have worsening of the white count that prompted this infection disease consultation patient also have a chest x-ray with large left effusion warrants pulmonary has been consulted CT has been ordered On today's evaluation that is 03/15/2023, the patient continues to be afebrile, the patient is breathing comfortably on 2 L nasal cannula oxygen, the patient denies having any chest pain, the patient did have occasional cough but no sputum production no abdominal pain, the patient diarrhea has improved Objective - Vital Signs Vital signs: Vital Signs Temp 97.8 F 03/15/23 11:55 Pulse 69 03/15/23 11:55 Resp 18 03/15/23 11:55 BP 115/60 03/15/23 11:55 Pulse Ox 95 03/15/23 11:55 FiO2 Intake & Output 03/14/23 03/15/23 03/15/23 18:59 06:59 18:59 Intake Total 472 240 Output Total 500 800 Balance -28 -800 240 Weight 81.647 kg Intake: Oral 472 240 Output: Urine 500 800 Other: Voiding Method External Catheter # Bowel Movements 1 - Exam GENERAL DESCRIPTION: An elderly female lying in bed in no distress RESPIRATORY SYSTEM: Unlabored breathing , decreased breath sounds at bases HEART: S1 S2 regular rate and rhythm , ABDOMEN: Soft , no tenderness EXTREMITIES: No edema feet - Labs CBC & Chem 7: 03/15/23 10:01 03/15/23 10:01 Labs: Abnormal Lab Results - Last 24 Hours (Table) 03/15/23 03/15/23 Range/Units 10:01 10:01 RBC 3.53 L (3.80-5.40) m/uL Hgb 10.7 L (11.4-16.0) gm/dL Hct 33.3 L (34.0-46.0) % RDW 15.6 H (11.5-15.5) % Lymphocytes # (Manual) 0.61 L (1.0-4.8) k/uL Metamyelocytes # (Man) 0.35 H (0) k/uL Myelocytes # (Manual) 0.35 H (0) k/uL Carbon Dioxide 36 H (22-30) mmol/L Calcium 8.2 L (8.4-10.2) mg/dL Total Protein 5.2 L (6.3-8.2) g/dL Albumin 2.6 L (3.5-5.0) g/dL Assessment and Plan (1) C. difficile colitis Status: Acute Code(s): A04.72 - ENTEROCOLITIS D/T CLOSTRIDIUM DIFFICILE, NOT SPCF RECUR SNOMED Code(s): 518630092 Plan: 1patient presented to hospital with low potassium in this patient with a recent diagnosis of ulcerative colitis and has been treated with oral vancomycin patient continued to have significant diarrhea despite being on oral vancomycin was noticed to have worsening of the white count, patient is also complaining of shortness of breath and is hypoxic but no significant cough to be suspicious for pneumonia. 2patient chest x-ray with the large left effusion CT of the chest did shows effusion concerning for possible consolidation and pneumonia however the patient did not have any productive cough and procalcitonin is only 0.19 clinically doubt pneumonia 3-patient did have improvement in her diarrhea, patient to continue with the deficid to finish a ten-day course of therapy Time with Patient: Less than 30
--- NOTE | 2023-03-23 22:52 | P.PN ---
Subjective Progress Note Date: 03/16/23 Principal diagnosis: C. diff colitis Patient is a 77-year-old female was recently diagnosed with C. difficile colitis at the local correction and the patient has been started on oral vancomycin subsequently presented to hospital with electrolyte abnormality noticed to have worsening of the white count that prompted this infection disease consultation patient also have a chest x-ray with large left effusion warrants pulmonary has been consulted CT has been ordered On today's evaluation that is 03/16/2023, the patient remains to be afebrile, the patient is breathing comfortably on 2 L nasal cannula oxygen, the patient denies having any chest pain, the patient did have occasional cough which is dry in nature, the patient denies abdominal pain, the patient diarrhea has resolved Objective - Vital Signs Vital signs: Vital Signs Temp 98.3 F 03/16/23 08:30 Pulse 88 03/16/23 08:30 Resp 18 03/16/23 08:30 BP 112/63 03/16/23 08:30 Pulse Ox 96 03/16/23 08:53 FiO2 Intake & Output 03/15/23 03/16/23 03/16/23 18:59 06:59 18:59 Intake Total 840 480 Output Total 400 50 Balance 840 -400 430 Weight 81.647 kg Intake: Oral 840 480 Output: Urine 400 Stool 50 Other: Voiding Method External Catheter External Catheter - Exam GENERAL DESCRIPTION: An elderly female lying in bed in no distress RESPIRATORY SYSTEM: Unlabored breathing , decreased breath sounds at bases HEART: S1 S2 regular rate and rhythm , ABDOMEN: Soft , no tenderness EXTREMITIES: No edema feet - Labs CBC & Chem 7: 03/15/23 10:01 03/15/23 10:01 Assessment and Plan (1) C. difficile colitis Status: Acute Code(s): A04.72 - ENTEROCOLITIS D/T CLOSTRIDIUM DIFFICILE, NOT SPCF RECUR SNOMED Code(s): 641194592 Plan: 1patient presented to hospital with low potassium in this patient with a recent diagnosis of ulcerative colitis and has been treated with oral vancomycin patient continued to have significant diarrhea despite being on oral vancomycin was noticed to have worsening of the white count, patient is also complaining of shortness of breath and is hypoxic but no significant cough to be suspicious for pneumonia. 2patient chest x-ray with the large left effusion CT of the chest did shows effusion concerning for possible consolidation and pneumonia however the patient did not have any productive cough and procalcitonin is only 0.19 clinically doubt pneumonia 3-patient did have improvement in her diarrhea, patient to continue with the deficid to finish a ten-day course of therapy, patient has been advised to increase her probiotic and and yogurt intake to decrease incidence of recurrent C. diff colitis Time with Patient: Less than 30
== END 2023-03-16 16:36 | DRG 640 ==
LOC: EC 23:10 → 3SCARD 03-11 03:06
PROVIDERS: ADMIT Hospitalist; ATTEND Hospitalist
DX: E87.6 Hypokalemia (principal); I50.33 Acute on chronic diastolic (congestive) heart failure; J96.01 Acute respiratory failure with hypoxia; A04.72 Enterocolitis due to Clostridium difficile, not specified as recurrent; N17.9 Acute kidney failure, unspecified; I5A Non-ischemic myocardial injury (non-traumatic); J98.11 Atelectasis; I27.20 Pulmonary hypertension, unspecified; I05.2 Rheumatic mitral stenosis with insufficiency; I95.9 Hypotension, unspecified; I11.0 Hypertensive heart disease with heart failure; E87.1 Hypo-osmolality and hyponatremia; J44.9 Chronic obstructive pulmonary disease, unspecified; E78.5 Hyperlipidemia, unspecified; E86.0 Dehydration; I25.10 Atherosclerotic heart disease of native coronary artery without angina pectoris; E66.9 Obesity, unspecified; Z68.30 Body mass index [BMI] 30.0-30.9, adult; Z79.82 Long term (current) use of aspirin; Z79.899 Other long term (current) drug therapy; Z87.891 Personal history of nicotine dependence; Z95.5 Presence of coronary angioplasty implant and graft; Z95.0 Presence of cardiac pacemaker; Z96.60 Presence of unspecified orthopedic joint implant; Z88.8 Allergy status to other drugs, medicaments and biological substances; Z71.3 Dietary counseling and surveillance
CPT/HCPCS: 36415; 71045; 71250; 80048; 80053; 80061; 83605; 83735; 83880; 84145; 84484; 85025; 85610; 85730; 93005; 93306; 94760; 96360; 99285

== ENCOUNTER 2023-06-26 14:07 | Observation (INO) | payer MEDICARE ==
[2023-06-26 15:08] LABS: Basophils % (A) 0 %; Eosinophils # (A) 0.2 k/uL (0-0.7); Eosinophils % (A) 3 %; HCT 35.4 % (34.0-46.0); HGB 11.8 gm/dL (11.4-16.0); Lymphocytes # (A) 0.8 k/uL (1.0-4.8); Lymphocytes % (A) 13 %; MCH 28.7 pg (25.0-35.0); MCHC 33.3 g/dL (31.0-37.0); MCV 86.4 fL (80.0-100.0); Mean Platelet Volume 7.1; Monocytes # (A) 0.4 k/uL (0-1.0); Monocytes % (A) 6 %; Neutrophils # (A) 4.8 k/uL (1.3-7.7); Neutrophils % (A) 76 %; Platelet Count 283 k/uL (150-450); RDW 15.4 % (11.5-15.5); WBC 6.3 k/uL (3.8-10.6)
[2023-06-26 15:15] LABS: INR 0.9 (<1.2); Partial Thromboplastin Time 28.1 sec (22.0-30.0); Prothrombin Time 10.2 sec (10.0-12.5)
[2023-06-26 15:21] LABS: ALT 16 U/L (4-34); AST 25 U/L (14-36); African American GFR (CKD) 82 (>60 ml/min/1.73 sqM); Albumin 3.1 g/dL (3.5-5.0); Alkaline Phosphatase 81 U/L (38-126); Anion Gap 6 mmol/L; Blood Urea Nitrogen 28 mg/dL (7-17); Calcium 8.9 mg/dL (8.4-10.2); Carbon Dioxide 36 mmol/L (22-30); Chloride 93 mmol/L (98-107); Glucose 114 mg/dL (74-99); Magnesium 1.9 mg/dL (1.6-2.3); Non-African American GFR(CKD) 71 (>60 ml/min/1.73 sqM); Sodium 135 mmol/L (137-145); Total Bilirubin 0.4 mg/dL (0.2-1.3); Total Protein 6.2 g/dL (6.3-8.2)
[2023-06-26 15:30] LABS: NT-Pro-B-Type Natriuretic Pept 1750 pg/mL
--- NOTE | 2023-06-26 16:07 | XR ---
EXAMINATION TYPE: XR chest 2V DATE OF EXAM: 06/26/2023 4:00 PM COMPARISON: Chest radiographs from 03/13/2023, CT chest 03/13/2023 TECHNIQUE: XR chest 2V Frontal and lateral views of the chest. CLINICAL INDICATION:Female, 78 years old with history of Weakness; FINDINGS: Lungs/Pleura: No pleural effusion or pneumothorax. Left basilar patchy airspace opacity. Elevated lef t hemidiaphragm redemonstrated. Chronic senescent parenchymal change. Pulmonary vascularity: Unremarkable. Heart/mediastinum: Cardiomediastinal silhouette is stable. Atherosclerotic calcifications are seen i n the aorta. Two lead cardiac conduction device overlying the left hemithorax with lead tips projecti ng over the right ventricle and right atrium. Musculoskeletal: No acute osseous pathology. Other: Surgical clips in the upper abdomen. IMPRESSION: Redemonstration of elevated left hemidiaphragm with left basilar patchy airspace opacity which may re present atelectasis versus infiltrate.
--- NOTE | 2023-06-26 16:11 | ED ---
General Adult HPI - General Chief complaint: Weakness Stated complaint: Weakness,Swelling Time Seen by Provider: 06/26/23 14:39 Source: patient, RN notes reviewed, old records reviewed Mode of arrival: EMS - History of Present Illness Initial comments: 78-year-old female presenting from home with increased weakness. Patient states over the past several days she's had increased difficulty standing and is unable to ambulate. She's been weak for some time but she previously was able to stand and pivot. She has increased swelling of the bilateral lower extremities with history of congestive heart failure. Patient denies fever. Denies chest pain. - Related Data Home Medications Medication Instructions Recorded Confirmed Acetaminophen Tab [Tylenol] 650 mg PO Q4H PRN 03/11/23 03/11/23 Aspirin EC [Ecotrin Low Dose] 81 mg PO DAILY 03/11/23 03/11/23 Collagenase [Santyl Ointment] 1 applic TOPICAL DAILY PRN 03/11/23 03/11/23 Enoxaparin Sodium 40 mg SQ DAILY 03/11/23 03/11/23 Ezetimibe [Zetia] 10 mg PO DAILY 03/11/23 03/11/23 Furosemide [Lasix] 20 mg PO DAILY@0600 03/11/23 03/11/23 Glucerna Shake 1 can PO DAILY 03/11/23 03/11/23 Melatonin 3 mg PO HS PRN 03/11/23 03/11/23 Multivitamins, Thera [Multivitamin 1 tab PO DAILY 03/11/23 03/11/23 (formulary)] Prostat Awc 30 ml PO DAILY 03/11/23 03/11/23 Zguard 1 applic TOPICAL BID 03/11/23 03/11/23 diphenhydrAMINE HCL [Benadryl] 25 mg PO BID PRN 03/11/23 03/11/23 Previous Rx's Medication Instructions Recorded Fidaxomicin [Dificid] 200 mg PO BID 6 Days #12 tab 03/16/23 Metoprolol Succinate (ER) [Toprol 12.5 mg PO DAILY #30 tab 03/16/23 XL] Midodrine [ProAmatine] 10 mg PO AC-TID #21 tab 03/16/23 Allergies Allergy/AdvReac Type Severity Reaction Status Date / Time atorvastatin Allergy Unknown Verified 10/23/23 14:21 lisinopril Allergy Unknown Verified 06/26/23 14:21 losartan [From Cozaar] Allergy Unknown Verified 06/26/23 14:21 rosuvastatin [From Crestor] Allergy Unknown Verified 06/26/23 14:21 Review of Systems ROS Statement: Those systems with pertinent positive or pertinent negative responses have been documented in the HPI. ROS Other: All systems not noted in ROS Statement are negative. Past Medical History Past Medical History: Diabetes Mellitus, Hypertension History of Any Multi-Drug Resistant Organisms: C-DIFF Date of last positivie culture/infection: 03/08/23 MDRO Source:: Unknown Past Surgical History: Joint Replacement, Pacemaker Additional Past Surgical History / Comment(s): Cateract surgery bilaterally, Broken left hip with surgical repair Additional Past Anesthesia/Blood Transfusion Reaction / Comment(s): No transfusions received Type of Cardiac Device: Permanent Pacemaker Device Placement Date:: 2017 Past Psychological History: No Psychological Hx Reported Smoking Status: Former smoker Past Alcohol Use History: None Reported Past Drug Use History: None Reported - Past Family History Sister(s) Family Medical History: COPD General Exam General appearance: alert, in no apparent distress Head exam: Present: atraumatic, normocephalic Eye exam: Present: normal appearance, PERRL Neck exam: Present: normal inspection Respiratory exam: Present: normal lung sounds bilaterally. Absent: respiratory distress, wheezes Cardiovascular Exam: Present: regular rate, normal rhythm GI/Abdominal exam: Present: soft. Absent: distended Extremities exam: Present: pedal edema Neurological exam: Present: alert, oriented X3 Psychiatric exam: Present: normal affect, normal mood Skin exam: Present: warm, dry, intact Course Vital Signs 06/26/23 14:12 Temperature 98.4 F Pulse Rate 79 Respiratory 18 Rate Blood Pressure 111/62 O2 Sat by Pulse 94 L Oximetry Medical Decision Making - Medical Decision Making Was pt. sent in by a medical professional or institution (, PA, CONTRACT PREPARER, urgent care, hospital, or [facility]...) When possible be specific @ -No Did you speak to anyone other than the patient for history (EMS, parent, family, police, friend...)? What history was obtained from this source @ -No Did you review nursing and triage notes (agree or disagree)? Why? @ -I reviewed and agree with nursing and triage notes Were old charts reviewed (outside hosp., previous admission, EMS record, old EKG, old radiological studies, urgent care reports/EKG's, [facility] records)? Report findings @ -No old charts were reviewed Differential Diagnosis (chest pain, altered mental status, abdominal pain women, abdominal pain men, vaginal bleeding, weakness, fever, dyspnea, syncope, headache, dizziness, GI bleed, back pain, seizure, CVA, palpatations, mental health, musculoskeletal)? @ Differential Weakness: Hypoglycemia, shock, sepsis, hyponatremia, anemia, infection, KS, ETOH, adverse medicine reaction, overdose, stroke, this is not meant to be an all-inclusive list. EKG interpreted by me (3pts min.). @Paced rhythm rate of 75 QRS duration 188, QTC 532 X-rays interpreted by me (1pt min.). @Chest x-ray, elevation left hemidiaphragm possible left pleural effusion. CT interpreted by me (1pt min.). @ -None done U/S interpreted by me (1pt. min.). @ -None done What testing was considered but not performed or refused? (CT, X-rays, U/S, labs)? Why? @ -None What meds were considered but not given or refused? Why? @ -None Did you discuss the management of the patient with other professionals (professionals i.e. , PA, CONTRACT PREPARER, lab, RT, psych nurse, social work associate, breadman, teacher, electronic intelligence officer, case fitter)? Give summary @ -No Was smoking cessation discussed for >3mins.? @ -No Was critical care preformed (if so, how long)? @ -No Were there social determinants of health that impacted care today? How? (Homelessness, low income, unemployed, alcoholism, drug addiction, transportation, low edu. Level, literacy, decrease access to med. care, skilled nursing, rehab)? @ -Sound physician group Was there de-escalation of care discussed even if they declined (Discuss DNR or withdrawal of care, Hospice)? DNR status @ -No What co-morbidities impacted this encounter? (DM, HTN, Smoking, COPD, CAD, Cancer, CVA, ARF, Chemo, Hep., AIDS, mental health diagnosis, sleep apnea, morbid obesity)? @ -CHF Was patient admitted / discharged? Hospital course, mention meds given and route, prescriptions, significant lab abnormalities, going to OR and other pertinent info. @ -[Patient medically for increased weakness, fluid overload, peripheral edema. Patient has normal CBC, negative troponin, mildly elevated BNP at 1700. Urinalysis is pending. Patient will need to be admitted and likely placed for rehabilitation. Undiagnosed new problem with uncertain prognosis? @ -No Drug Therapy requiring intensive monitoring for toxicity (Heparin, Nitro, Insulin, Cardizem)? @ -No Were any procedures done? @ -No Diagnosis/symptom? @ -Bilateral leg weakness and edema Acute, or Chronic, or Acute on Chronic? @ -Acute on chronic Uncomplicated (without systemic symptoms) or Complicated (systemic symptoms)? @ -[Complicated Side effects of treatment? @ -No Exacerbation, Progression, or Severe Exacerbation? @ -No Poses a threat to life or bodily function? How? (Chest pain, USA, KS, pneumonia, PE, COPD, DKA, ARF, appy, cholecystitis, CVA, Diverticulitis, Homicidal, Suicidal, threat to staff... and all critical care pts) @ -[Moderate risk, worsening weakness - Lab Data Result diagrams: 06/26/23 14:58 06/26/23 14:58 Lab Results 06/26/23 06/26/23 06/26/23 Range/Units 14:58 14:58 14:58 WBC 6.3 (3.8-10.6) k/uL RBC 4.10 (3.80-5.40) m/uL Hgb 11.8 (11.4-16.0) gm/dL Hct 35.4 (34.0-46.0) % MCV 86.4 (80.0-100.0) fL MCH 28.7 (25.0-35.0) pg MCHC 33.3 (31.0-37.0) g/dL RDW 15.4 (11.5-15.5) % Plt Count 283 (150-450) k/uL MPV 7.1 Neutrophils % 76 % Lymphocytes % 13 % Monocytes % 6 % Eosinophils % 3 % Basophils % 0 % Neutrophils # 4.8 (1.3-7.7) k/uL Lymphocytes # 0.8 L (1.0-4.8) k/uL Monocytes # 0.4 (0-1.0) k/uL Eosinophils # 0.2 (0-0.7) k/uL Basophils # 0.0 (0-0.2) k/uL PT 10.2 (10.0-12.5) sec INR 0.9 (<1.2) APTT 28.1 (22.0-30.0) sec Sodium 135 L (137-145) mmol/L Potassium 4.0 (3.5-5.1) mmol/L Chloride 93 L (98-107) mmol/L Carbon Dioxide 36 H (22-30) mmol/L Anion Gap 6 mmol/L BUN 28 H (7-17) mg/dL Creatinine 0.81 (0.52-1.04) mg/dL Est GFR (CKD-EPI)AfAm 82 (>60 ml/min/1.73 sqM) Est GFR (CKD-EPI)NonAf 71 (>60 ml/min/1.73 sqM) Glucose 114 H (74-99) mg/dL Plasma Lactic Acid Vj (0.7-2.0) mmol/L Calcium 8.9 (8.4-10.2) mg/dL Magnesium 1.9 (1.6-2.3) mg/dL Total Bilirubin 0.4 (0.2-1.3) mg/dL AST 25 (14-36) U/L ALT 16 (4-34) U/L Alkaline Phosphatase 81 (38-126) U/L Troponin I (0.000-0.034) ng/mL NT-Pro-B Natriuret Pep 1750 pg/mL Total Protein 6.2 L (6.3-8.2) g/dL Albumin 3.1 L (3.5-5.0) g/dL 06/26/23 06/26/23 Range/Units 14:58 14:58 WBC (3.8-10.6) k/uL RBC (3.80-5.40) m/uL Hgb (11.4-16.0) gm/dL Hct (34.0-46.0) % MCV (80.0-100.0) fL MCH (25.0-35.0) pg MCHC (31.0-37.0) g/dL RDW (11.5-15.5) % Plt Count (150-450) k/uL MPV Neutrophils % % Lymphocytes % % Monocytes % % Eosinophils % % Basophils % % Neutrophils # (1.3-7.7) k/uL Lymphocytes # (1.0-4.8) k/uL Monocytes # (0-1.0) k/uL Eosinophils # (0-0.7) k/uL Basophils # (0-0.2) k/uL PT (10.0-12.5) sec INR (<1.2) APTT (22.0-30.0) sec Sodium (137-145) mmol/L Potassium (3.5-5.1) mmol/L Chloride (98-107) mmol/L Carbon Dioxide (22-30) mmol/L Anion Gap mmol/L BUN (7-17) mg/dL Creatinine (0.52-1.04) mg/dL Est GFR (CKD-EPI)AfAm (>60 ml/min/1.73 sqM) Est GFR (CKD-EPI)NonAf (>60 ml/min/1.73 sqM) Glucose (74-99) mg/dL Plasma Lactic Acid Vj 0.8 (0.7-2.0) mmol/L Calcium (8.4-10.2) mg/dL Magnesium (1.6-2.3) mg/dL Total Bilirubin (0.2-1.3) mg/dL AST (14-36) U/L ALT (4-34) U/L Alkaline Phosphatase (38-126) U/L Troponin I <0.012 (0.000-0.034) ng/mL NT-Pro-B Natriuret Pep pg/mL Total Protein (6.3-8.2) g/dL Albumin (3.5-5.0) g/dL Disposition Clinical Impression: Fluid overload, Generalized weakness, CHF (congestive heart failure) Disposition: ADMITTED IP TO THIS HOSP Condition: Stable Is patient prescribed a controlled substance at d/c from ED?: No Referrals: Kenzie Coleman MD [Primary Care Provider] - 1-2 days Time of Disposition: 16:20
[2023-06-26] MEDS ORDERED: ACETAMINOPHEN TAB 325 MG TAB PO PRN (16:20)
[2023-06-26] MEDS ORDERED: NALOXONE 0.4 MG/ML 1 ML VIAL IV PRN (16:20)
[2023-06-26] MEDS ORDERED: FUROSEMIDE 10 MG/ML 4 ML VIAL IV STA (16:31)
--- NOTE | 2023-06-26 17:13 | P.HPIM ---
History of Present Illness H&P Date: 06/26/23 Patient is a 77-year-old female with history of CAD status post stent, permanent pacemaker, moderate pulmonary hypertension presenting with generalized weakness and debility. She claims that over the last 1 week or so she has not been able to get out of her [place] and into the wheelchair. Today she had her visiting nurse try to get her out of the [place], was unable to do so. She was then presented to the ER. She lives by herself at the moment. Denies any chest pain, shortness of breath, abdominal pain, nausea, vomiting, urinary or bowel complaints. She claims that she normally has a bowel movement about once per week. She has notice increased lower extremity edema In the ED, temperature was 98.4, pulse 79, respiratory rate 18, saturating at 94% on room air, blood pressure 111/62. WBC 6.3, hemoglobin 11.8, platelet 283, sodium 135, chloride 93, bicarbonate 36, BUN 28, creatinine 0.81, glucose 114, troponin negative, proBNP 1700. Chest x-ray shows left hemidiaphragm, and possible left basilar opacity. Patient being admitted for inpatient and likely placement. clothing worker consulted. Pertinent positives and negatives as discussed in HPI, a complete review of systems was performed and all other systems are negative. Patient seen and examined at bedside. Vital signs reviewed General: nontoxic, no distress, appears at stated age Derm: warm, dry, and intertrigo Head: atraumatic, normocephalic, symmetric Eyes: EOMI, no lid lag, anicteric sclera, pupils equal round reactive to light ENT: Nose and ears atraumatic Neck: No thyromegaly, supple Mouth: no lip lesion, mucus membranes moist Cardiovascular: S1S2 reg, no murmur, 2+ pitting edema Lungs: clear to auscultation bilateral, no rhonchi, no rales, no wheeze, no accessory muscle use Abdominal: soft, nontender to palpation, no guarding, no appreciable organomegaly Ext: Reduced strength bilateral lower extremity, right middle digit edema Neuro: CN II-XII grossly intact Psych: Alert, oriented, appropriate affect Assessment/Plan: Generalized weakness Debility History of CAD status post stent History of permanent pacemaker Moderate pulmonary hypertension Metabolic alkalosis Mild hyponatremia Lower extremity edema Right middle digit edema Intertrigo -PT/OT -clothing worker consult -Patient was given a dose of IV 40 mg Lasix in the ED, continue home oral diuretics -Repeat BMP tomorrow -Metabolic alkalosis and hyponatremia likely in the setting of diuretics -Not in CHF exacerbation, lower extremity edema possibly result of pulmonary hypertension and reduced activity -Pending right hand x-ray -Nystatin powder The patient is admitted with an anticipated greater than 2 midnight stay as inpatient status for evaluation of generalized weakness. Surrogate decision-maker: Niece CODE STATUS: Full code DVT prophylaxis: Subcu heparin Anticipated discharge date: Pending clinical course Anticipated discharge place: Subacute rehab A total of 55 minutes was spent on the care of this complex patient more than 50% of the time was spent in counseling and care coordination. Past Medical History Past Medical History: Diabetes Mellitus, Hypertension History of Any Multi-Drug Resistant Organisms: C-DIFF Date of last positivie culture/infection: 03/08/23 MDRO Source:: Unknown Past Surgical History: Joint Replacement, Pacemaker Additional Past Surgical History / Comment(s): Cateract surgery bilaterally, Broken left hip with surgical repair Additional Past Anesthesia/Blood Transfusion Reaction / Comment(s): No transfusions received Type of Cardiac Device: Permanent Pacemaker Device Placement Date:: 2017 Past Psychological History: No Psychological Hx Reported Smoking Status: Former smoker Past Alcohol Use History: None Reported Past Drug Use History: None Reported - Past Family History Sister(s) Family Medical History: COPD Medications and Allergies Home Medications Medication Instructions Recorded Confirmed Type Acetaminophen Tab [Tylenol] 650 mg PO Q4H PRN 03/11/23 06/26/23 History Aspirin EC [Ecotrin Low Dose] 81 mg PO DAILY 03/11/23 06/26/23 History Collagenase [Santyl Ointment] 1 applic TOPICAL DAILY 03/11/23 06/26/23 History Furosemide [Lasix] 20 mg PO BID 03/11/23 06/26/23 History Multivitamins, Thera [Multivitamin 1 tab PO DAILY 03/11/23 06/26/23 History (formulary)] carvediloL [Coreg] 6.25 mg PO BID 06/26/23 06/26/23 History Allergies Allergy/AdvReac Type Severity Reaction Status Date / Time atorvastatin Allergy Unknown Verified 06/26/23 16:46 lisinopril Allergy Unknown Verified 06/26/23 16:46 losartan [From Cozaar] Allergy Unknown Verified 06/26/23 16:46 rosuvastatin [From Crestor] Allergy Unknown Verified 06/26/23 16:46 Physical Exam Vitals: Vital Signs Temp Pulse Resp BP Pulse Ox 06/26/23 16:48 73 18 98/75 96 06/26/23 14:12 98.4 F 79 18 111/62 94 L Intake and Output 06/26/23 06/26/23 06/26/23 06:59 14:59 22:59 Other: Weight 86.183 kg Results CBC & Chem 7: 06/26/23 14:58 06/26/23 14:58 Labs: Abnormal Lab Results - Last 24 Hours (Table) 06/26/23 06/26/23 Range/Units 14:58 14:58 Lymphocytes # 0.8 L (1.0-4.8) k/uL Sodium 135 L (137-145) mmol/L Chloride 93 L (98-107) mmol/L Carbon Dioxide 36 H (22-30) mmol/L BUN 28 H (7-17) mg/dL Glucose 114 H (74-99) mg/dL Total Protein 6.2 L (6.3-8.2) g/dL Albumin 3.1 L (3.5-5.0) g/dL
[2023-06-26] MEDS: FUROSEMIDE 20 MG TAB PO SCH (17:26)
[2023-06-26] MEDS: carvediloL 6.25 MG TAB PO SCH (18:24)
--- NOTE | 2023-06-26 18:29 | XR ---
EXAMINATION TYPE: XR hand complete RT DATE OF EXAM: 06/26/2023 COMPARISON: None HISTORY: Swollen finger third digit TECHNIQUE: 3 view right hand FINDINGS: There is prominent hypertrophy at the proximal interphalangeal joint space middle finger. P roximal and distal interphalangeal joint space degenerative changes are present. There is a contracti on of the fifth digit. No acute fractures are evident. There may be some mild soft tissue prominence over the dorsum of the metacarpal phalangeal joint spaces. IMPRESSION: 1. Advanced degenerative joint changes within the proximal distal interphalangeal joint spaces. This is most prominent in the proximal interphalangeal joint space middle finger
[2023-06-26] MEDS: NYSTATIN 100,000 UNIT/GM POWD 15 GM TOPICAL SCH (18:59)
[2023-06-26 21:34] LABS: Appearance,Urine Clear (Clear); Bilirubin,Urine Negative (Negative); Blood,Urine Negative (Negative); Color,Urine Light Yellow; Glucose,Urine (UA) Negative (Negative); Ketones,Urine Negative (Negative); Leukocyte Esterase,Urine Negative (Negative); Nitrite,Urine Negative (Negative); PH, Urine 6.5 (5.0-8.0); Protein,Urine Negative (Negative); Specific Gravity,Urine <1.005 (1.001-1.035); Urobilinogen,Urine <2.0 mg/dL (<2.0)
[2023-06-27] MEDS: ENOXAPARIN 40 MG/0.4 ML SYRINGE SQ SCH (08:48)
[2023-06-27] MEDS: FUROSEMIDE 20 MG TAB PO SCH ×2 (08:48→16:48)
[2023-06-27] MEDS: ASPIRIN 81 MG PO SCH (08:48)
[2023-06-27] MEDS: MULTIVITAMINS, THERA 1 EACH TAB PO SCH (08:48)
[2023-06-27] MEDS: NYSTATIN 100,000 UNIT/GM POWD 15 GM TOPICAL SCH ×2 (08:49→21:38)
[2023-06-27] MEDS: carvediloL 6.25 MG TAB PO SCH ×2 (08:49→16:48)
[2023-06-27 11:38] LABS: African American GFR (CKD) 86 (>60 ml/min/1.73 sqM); Anion Gap 7 mmol/L; Blood Urea Nitrogen 24 mg/dL (7-17); Calcium 8.2 mg/dL (8.4-10.2); Carbon Dioxide 32 mmol/L (22-30); Chloride 94 mmol/L (98-107); Glucose 75 mg/dL (74-99); Non-African American GFR(CKD) 75 (>60 ml/min/1.73 sqM); Potassium 4.2 mmol/L (3.5-5.1); Sodium 133 mmol/L (137-145)
[2023-06-27 13:59] VITALS: BMI 28.6
--- NOTE | 2023-06-27 14:07 | P.PN ---
Subjective Progress Note Date: 06/27/23 Hospital Course: 77-year-old female with history of CAD status post stent, permanent pacemaker, moderate pulmonary hypertension presenting with generalized weakness and debility. In the ED, temperature was 98.4, pulse 79, respiratory rate 18, saturating at 94% on room air, blood pressure 111/62. WBC 6.3, hemoglobin 11.8, platelet 283, sodium 135, chloride 93, bicarbonate 36, BUN 28, creatinine 0.81, glucose 114, troponin negative, proBNP 1700. Chest x-ray shows left hemidiaphragm, and possible left basilar opacity. Patient being admitted for inpatient and likely placement. print finishing worker consulted. Now pending placement. Subjective: Patient seen and examined at bedside. No acute events overnight. Claims that she is feeling a lot better today Pertinent positives and negatives as discussed above, a complete review of systems was performed and all other systems are negative. Vitals Signs Reviewed. General: nontoxic, no distress, appears at stated age Derm: warm, dry, and intertrigo Head: atraumatic, normocephalic, symmetric Eyes: EOMI, no lid lag, anicteric sclera, pupils equal round reactive to light ENT: Nose and ears atraumatic Neck: No thyromegaly, supple Mouth: no lip lesion, mucus membranes moist Cardiovascular: S1S2 reg, no murmur, 2+ pitting edema Lungs: clear to auscultation bilateral, no rhonchi, no rales, no wheeze, no accessory muscle use Abdominal: soft, nontender to palpation, no guarding, no appreciable organomegaly Ext: Reduced strength bilateral lower extremity, right middle digit edema Neuro: CN II-XII grossly intact Psych: Alert, oriented, appropriate affect Data Reviewed Today: Pertinent Labs: Sodium 133, BUN 24, creatinine 0.77 Imaging: Right hand x-ray report shows prominent proximal interphalangeal joint space middle finger advanced degenerative joint disease Assessment and Plan: Generalized weakness Debility History of CAD status post stent History of permanent pacemaker Moderate pulmonary hypertension Metabolic alkalosis Mild hyponatremia Lower extremity edema Right middle digit edema Osteoarthritis Intertrigo -PT/OT -print finishing worker following, pending placement -On Lasix 20 mg twice a day oral home dose -Repeat BMP tomorrow and monitor for electrolytes -Metabolic alkalosis and hyponatremia likely in the setting of diuretics -Not in CHF exacerbation, lower extremity edema possibly result of pulmonary h ypertension and reduced activity -Tylenol for pain -Nystatin powder topical twice a day DVT ppx: Lovenox 40 subcu Code status: Full code Anticipated discharge place: Pending subacute rehab Anticipated discharge time: Pending bed availability Objective - Vital Signs Vital signs: Vital Signs Temp 97.3 F L 06/27/23 12:59 Pulse 63 06/27/23 12:59 Resp 16 06/27/23 01:54 BP 97/66 06/27/23 12:59 Pulse Ox 100 06/27/23 12:59 FiO2 Intake & Output 06/26/23 06/27/23 06/27/23 18:59 06:59 18:59 Output Total 1600 Balance -1600 Weight 86.183 kg 75.8 kg 75.8 kg Output: Urine 1600 Other: Voiding Method External Catheter External Catheter - Labs CBC & Chem 7: 06/26/23 14:58 06/27/23 07:41 Labs: Abnormal Lab Results - Last 24 Hours (Table) 06/26/23 06/26/23 06/27/23 Range/Units 14:58 14:58 07:41 Lymphocytes # 0.8 L (1.0-4.8) k/uL Sodium 135 L 133 L (137-145) mmol/L Chloride 93 L 94 L (98-107) mmol/L Carbon Dioxide 36 H 32 H (22-30) mmol/L BUN 28 H 24 H (7-17) mg/dL Glucose 114 H (74-99) mg/dL Calcium 8.2 L (8.4-10.2) mg/dL Total Protein 6.2 L (6.3-8.2) g/dL Albumin 3.1 L (3.5-5.0) g/dL
--- NOTE | 2023-06-27 15:39 | P.CONS ---
History of Present Illness - Reason for Consult Consult date: 06/27/23 rehab recommendations - Chief Complaint debility - History of Present Illness Princess Pierre is a 78 year old right handed, female , who lives in a mobile home alone, with 4 CARLO. Prior to admission, patient was mostly wheelchair-bound. She needed assistance for basic/advanced ADLs. She had [facility] help her mon, wed and mon, mainly for right heel wound/blister. Current driving: no. Transportation by: niece. Retired: yes. Support system: niece She was admitted to [facility] 06/26. She presented to the ED c/o creased weakness. Patient reported that over the last several days she had increased difficulty in standing and is unable to ambulate. Her visiting nurse was also not able to help her get out of her recliner. Patient reported that she had been weak for some time but she was previously able to stand and pivot. She complained of increased swelling in her bilateral lower extremities. Chest x-ray showed elevation of left hemidiaphragm possible left pleural effusion. BN P 1700. Troponin level was negative. Patient was admitted with fluid overload and generalized weakness. CHF exacerbation was ruled out and lower extremity edema was thought to be the result of pulmonary hypertension and reduced activity. Patient had an x-ray of her right hand due to swollen third digit which showed advanced degenerative changes with nothing acute. PM&R consulted for rehab recommendations. Therapy evaluations pending 06/27/2023: Patient was found sitting in chair at bedside. She denies CP, SOB and abdominal pain. PureWick utilized for urination, denies issues with bowels. She is on 3 L supplemental oxygen via nasal cannula. She does not wear oxygen at home. Patient complains of pain right third digit. X-ray negative for anything acute. Suggesting a Medrol Dosepak. Patient has stayed at [facility] before for rehab. Patient denies concerns at this time. Review of Systems negative unless noted in HPI Past Medical History Past Medical History: Heart Failure, Diabetes Mellitus, Hypertension Additional Past Medical History / Comment(s): controlled DM History of Any Multi-Drug Resistant Organisms: C-DIFF Year Discovered:: 03/08/23 MDRO Source:: Unknown Past Surgical History: Cholecystectomy, Joint Replacement, Pacemaker Additional Past Surgical History / Comment(s): Cateract surgery bilaterally, Broken left hip with surgical repair Additional Past Anesthesia/Blood Transfusion Reaction / Comm: No transfusions received Type of Cardiac Device: Permanent Pacemaker Device Placement Date:: 2017 Past Psychological History: No Psychological Hx Reported Smoking Status: Never smoker Past Alcohol Use History: None Reported Past Drug Use History: None Reported - Past Family History Sister(s) Family Medical History: COPD Medications and Allergies Home Medications Medication Instructions Recorded Confirmed Type Acetaminophen Tab [Tylenol] 650 mg PO Q4H PRN 03/11/23 06/26/23 History Aspirin EC [Ecotrin Low Dose] 81 mg PO DAILY 03/11/23 06/26/23 History Collagenase [Santyl Ointment] 1 applic TOPICAL DAILY 03/11/23 06/26/23 History Furosemide [Lasix] 20 mg PO BID 03/11/23 06/26/23 History Multivitamins, Thera [Multivitamin 1 tab PO DAILY 03/11/23 06/26/23 History (formulary)] carvediloL [Coreg] 6.25 mg PO BID 06/26/23 06/26/23 History Allergies Allergy/AdvReac Type Severity Reaction Status Date / Time atorvastatin Allergy Unknown Verified 06/26/23 16:46 lisinopril Allergy Unknown Verified 06/26/23 16:46 losartan [From Cozaar] Allergy Unknown Verified 06/26/23 16:46 rosuvastatin [From Crestor] Allergy Unknown Verified 06/26/23 16:46 Physical Exam Vitals: Vital Signs Temp Pulse Pulse Resp BP BP Pulse Ox 06/27/23 07:55 98.7 F 88 123/76 96 06/27/23 01:54 97.5 F L 72 16 109/67 98 06/26/23 22:08 18 95 06/26/23 22:00 16 06/26/23 21:12 97.9 F 76 16 101/61 95 06/26/23 20:00 69 18 101/64 98 06/26/23 18:15 67 18 106/77 94 L 06/26/23 17:40 77 18 106/67 94 L 06/26/23 16:48 73 18 98/75 96 06/26/23 14:12 98.4 F 79 18 111/62 94 L Intake and Output 06/26/23 06/27/23 06/27/23 22:59 06:59 14:59 Output Total 800 800 Balance -800 -800 Output: Urine 800 800 Other: Voiding Method External Catheter External Catheter Weight 86.183 kg 75.8 kg EXAM; General: WDWN, elderly female, sitting in chair at bedside NAD Head: Normocephalic, atraumatic. Eyes: Symmetric Ears: Symmetric. Hearing within normal limits. Mouth: Clear. Neck: Supple. Cardiac: No signs of cardiac distress noted. Calves supple, non tender, 2+ pretibial edema bilat, 3+ pedal edema bilat Lungs: Breathing comfortably on 3L. Chest symmetric. Abdomen: Soft, nontender. Extremities: Arthritic changes consistent with age. right hand, 3rd digit swelling Neurological: Alert and oriented x 4. Speech is clear and fluent without paraphasic errors Cranial nerves: CN II-XII: intact. Sensation: Intact and symmetrical limbs. Musculoskeletal: ROM WFL EXCEPT: decreased HF MMT UE Sh Abd EE EF FABD WE HG Right 4 5 5 5 Left 4 5 5 5 MMT LE HF KE DF EHL Right 2+ 5 4 4 Left 2+ 4 4 4 Skin: Skin intact where visible to head, neck, and bilateral upper and lower extremities EXCEPT:PIV, right heel blister, open to air Psych: Calm, cooperative Results CBC & Chem 7: 06/26/23 14:58 06/27/23 07:41 Labs: Abnormal Lab Results - Last 24 Hours (Table) 06/26/23 06/26/23 06/27/23 Range/Units 14:58 14:58 07:41 Lymphocytes # 0.8 L (1.0-4.8) k/uL Sodium 135 L 133 L (137-145) mmol/L Chloride 93 L 94 L (98-107) mmol/L Carbon Dioxide 36 H 32 H (22-30) mmol/L BUN 28 H 24 H (7-17) mg/dL Glucose 114 H (74-99) mg/dL Calcium 8.2 L (8.4-10.2) mg/dL Total Protein 6.2 L (6.3-8.2) g/dL Albumin 3.1 L (3.5-5.0) g/dL Assessment and Plan Assessment: #Gait impairment/impaired ADLs secondary to generalized weakness #Lower extremity edema secondary to pulmonary hypertension and decreased activity -Lasix #Dactylitis -: recommend medrol dose pack #Status post PPM 2018 #Ex-smoker #CAD s/p stent placement # Bowel/ Bladder: Nursing to monitor and report concerns if any. -06/27/23: denies issues with urination/bowels. Purewick in use # Diet -Cardiac # Skin/wound: Skin/Wound care to follow as needed -06/27/23: blister right heel, discussed with nursing advised dressing # Pain Management -Tylenol 650 mg every 6 hours as needed # DVT Prophylaxis: -lovenox # Comorbidities: DM, HTN # Your medical dx and mgt Goals: Modified Independent mobility and ADLS both basic and advanced; increased functional mobility/strength; increased balance, safety, endurance. Improvement in medical issues through your care. Barriers: lives alone, endurance, little help Discharge recommendation: Recommending [facility] at discharge. Patient lives alone, has minimal help. Not able to have 24/7 care at discharge. Will likely not tolerate 3 hours of therapy daily. Patient seen and examined by Dr. Mackay Note prepped by Shaye German NP-C Author: Shaye German NP
[2023-06-28 02:48] VITALS: TEMP 97.5
[2023-06-28 08:03] VITALS: RESP 18
[2023-06-28] MEDS: ASPIRIN 81 MG PO SCH (08:20)
[2023-06-28] MEDS: MULTIVITAMINS, THERA 1 EACH TAB PO SCH (08:20)
[2023-06-28] MEDS: ENOXAPARIN 40 MG/0.4 ML SYRINGE SQ SCH (08:21)
[2023-06-28] MEDS: carvediloL 6.25 MG TAB PO SCH ×2 (08:21→17:05)
[2023-06-28] MEDS: FUROSEMIDE 20 MG TAB PO SCH ×2 (08:21→17:05)
[2023-06-28] MEDS: NYSTATIN 100,000 UNIT/GM POWD 15 GM TOPICAL SCH (11:14)
[2023-06-28] MEDS ORDERED: polyethylene glycoL 3350 17 GM POWD.PACK PO SCH (11:30)
--- NOTE | 2023-06-28 12:01 | P.PN ---
Subjective Progress Note Date: 06/28/23 Hospital Course: 77-year-old female with history of CAD status post stent, permanent pacemaker, moderate pulmonary hypertension presenting with generalized weakness and debility. In the ED, temperature was 98.4, pulse 79, respiratory rate 18, saturating at 94% on room air, blood pressure 111/62. WBC 6.3, hemoglobin 11.8, platelet 283, sodium 135, chloride 93, bicarbonate 36, BUN 28, creatinine 0.81, glucose 114, troponin negative, proBNP 1700. Chest x-ray shows left hemidiaphragm, and possible left basilar opacity. Patient being admitted for inpatient and likely placement. wafer production lead worker consulted. Now pending placement. Subjective: Patient seen and examined at bedside. No acute events overnight. Claims that she is feeling a lot better today. Pertinent positives and negatives as discussed above, a complete review of systems was performed and all other systems are negative. Vitals Signs Reviewed. General: nontoxic, no distress, appears at stated age Derm: warm, dry, and intertrigo Head: atraumatic, normocephalic, symmetric Eyes: EOMI, no lid lag, anicteric sclera, pupils equal round reactive to light ENT: Nose and ears atraumatic Neck: No thyromegaly, supple Mouth: no lip lesion, mucus membranes moist Cardiovascular: S1S2 reg, no murmur, 2+ pitting edema Lungs: clear to auscultation bilateral, no rhonchi, no rales, no wheeze, no accessory muscle use Abdominal: soft, nontender to palpation, no guarding, no appreciable organomegaly Ext: Reduced strength bilateral lower extremity, right middle digit edema Neuro: CN II-XII grossly intact Psych: Alert, oriented, appropriate affect Data Reviewed Today: Pertinent Labs: No new labs Imaging: No new imaging Assessment and Plan: Generalized weakness Debility History of CAD status post stent History of permanent pacemaker Moderate pulmonary hypertension Metabolic alkalosis Mild hyponatremia Lower extremity edema Right middle digit edema Osteoarthritis Intertrigo Constipation -Pending subacute rehab -Inpatient rehab note reviewed, not a candidate -On Lasix 20 mg twice a day oral home dose -Repeat BMP pending, will be reviewed when available -Not in CHF exacerbation, lower extremity edema possibly result of pulmonary hypertension and reduced activity -Tylenol for pain -Nystatin powder topical twice a day -Started on MiraLAX 17 g daily DVT ppx: Lovenox 40 subcu Code status: Full code Anticipated discharge place: Pending subacute rehab Anticipated discharge time: Pending bed availability Objective - Vital Signs Vital signs: Vital Signs Temp 97.5 F L 06/28/23 02:15 Pulse 64 06/28/23 08:00 Resp 18 06/28/23 08:00 BP 119/59 06/28/23 07:05 Pulse Ox 98 06/28/23 07:05 FiO2 Intake & Output 06/27/23 06/28/23 06/28/23 18:59 06:59 18:59 Intake Total 240 Output Total 600 1000 Balance -360 -1000 Weight 75.8 kg Intake: Oral 240 Output: Urine 600 1000 Other: Voiding Method External Catheter External Catheter # Voids 1 - Labs CBC & Chem 7: 06/26/23 14:58 06/27/23 07:41
[2023-06-28 12:48] VITALS: BP 112/70; PULSE 62
[2023-06-28 13:46] LABS: African American GFR (CKD) 74 (>60 ml/min/1.73 sqM); Anion Gap 8 mmol/L; Blood Urea Nitrogen 26 mg/dL (7-17); Calcium 8.6 mg/dL (8.4-10.2); Carbon Dioxide 33 mmol/L (22-30); Chloride 92 mmol/L (98-107); Glucose 122 mg/dL (74-99); Magnesium 1.9 mg/dL (1.6-2.3); Non-African American GFR(CKD) 64 (>60 ml/min/1.73 sqM); Potassium 4.1 mmol/L (3.5-5.1); Sodium 133 mmol/L (137-145)
--- NOTE | 2023-06-28 13:48 | CDI ---
Documentation Clarification Form Date: 06/28/2023 01:27:15 PM From: Princess Crisostomo RN, CCDS Admit Date: 06/26/2023 04:20:00 PM Patient Name: Princess Pierre Visit Number: [id number] Discharge Date: ATTENTION: The Clinical Documentation Specialists (CDI) and [facility] Coding Staff appreciate your assistance in clarifying documentation. Please respond to the clarification below the line at the bottom and electronically sign. The CDI & [facility] Coding staff will review the response and follow-up if needed. Please note: Queries are made part of the Legal Health Record. If you have any questions, please contact the author of this message via ITS. Dr. Carlos Beltran Your patient has the documented symptom of generalized weakness and debility. Additional clarification regarding the etiology/cause of this symptom is requested. History/Risk Factors: Diabetes Mellitus, Hypertension, CAD, Former smoker Clinical Indicators: 77-year-old female presenting with generalized weakness and debility. She has not been able to get out of her [employer] and into the wheelchair. Ext: Reduced strength bilateral lower extremity, right middle digit edema. Patient being admitted for inpatient and likely placement. asbestos hazard abatement worker consulted. 06/26 VS: 111/62 70 18 98.4 94% RA 06/26 Labs: WBC 6.3, HGB 11.8, NA 135, BUN 28 CR0.81, BNP 1750 06/26 CXR: Elevated left hemidiaphragm with left basilar patchy airspace opacity which may represent atelectasis versus infiltrate. Treatment: Case Management/asbestos hazard abatement worker consult Rehab placement Rehab Consult PT/OT Consult Is there a corresponding diagnosis/etiology for this symptom of generalized weakness and debility? [ x ] Age related physical debility. [ ] Age related cognitive decline. [ ] Unable to determine [ ] Other, please specify (Template Last Reviewed: October 2020) MTDD
--- NOTE | 2023-06-28 15:13 | P.DS ---
Providers Date of admission: 06/26/23 16:20 Expected date of discharge: 06/28/23 Attending physician: Carlos Beltran MD Consults: 06/27/23 10:15 Consult Physician Routine Consulting Provider: Damian Ingram Consult Reason/Comments: in pt rehab Do you want consulting provider notified?: Yes Primary care physician: Kenzie [facility] Course: Discharge Diagnosis: Generalized weakness Debility History of CAD status post stent History of permanent pacemaker Moderate pulmonary hypertension Metabolic alkalosis Mild hyponatremia Lower extremity edema Osteoarthritis Intertrigo Constipation Hospital Course: 77-year-old female with history of CAD status post stent, permanent pacemaker, moderate pulmonary hypertension presenting with generalized weakness and de bility. In the ED, temperature was 98.4, pulse 79, respiratory rate 18, saturating at 94% on room air, blood pressure 111/62. WBC 6.3, hemoglobin 11.8, platelet 283, sodium 135, chloride 93, bicarbonate 36, BUN 28, creatinine 0.81, glucose 114, troponin negative, proBNP 1700. Chest x-ray shows left hemidiaphragm, and possible left basilar opacity. Patient being admitted for physical therapy evaluation. Mild hyponatremia and metabolic alkalosis in the setting of diuretics, continue oral diuretics. Lower extremity swelling not consistent with CHF exacerbation. Likely dependent edema. Also has right middle digit hand osteoarthritis, conservative therapy recommended. Patient being discharged to subacute rehab. Patient seen and examined at bedside. Vital signs reviewed and stable. General: nontoxic, no distress, appears at stated age Derm: warm, dry, and intertrigo Head: atraumatic, normocephalic, symmetric Eyes: EOMI, no lid lag, anicteric sclera, pupils equal round reactive to light ENT: Nose and ears atraumatic Neck: No thyromegaly, supple Mouth: no lip lesion, mucus membranes moist Cardiovascular: S1S2 reg, no murmur, 2+ pitting edema Lungs: clear to auscultation bilateral, no rhonchi, no rales, no wheeze, no accessory muscle use Abdominal: soft, nontender to palpation, no guarding, no appreciable organomegaly Ext: Reduced strength bilateral lower extremity, right middle digit edema Neuro: CN II-XII grossly intact Psych: Alert, oriented, appropriate affect A total of 36 minutes of time were spent preparing this complex discharge summary. Patient was discharged on 06/28/23 at 15:13. Patient Condition at Discharge: Stable Plan - Discharge Summary Discharge Rx Participant: No New Discharge Prescriptions: New polyethylene glycoL 3350 [Miralax] 17 gm PO DAILY packet Nystatin 100,000 Unit/gm Powd [Mycostatin Powder] 1 applic TOPICAL BID #0 each Acetaminophen Tab [Tylenol] 650 mg PO Q6HR PRN tab PRN Reason: Mild Pain Or Fever > 100.5 Continue Furosemide [Lasix] 20 mg PO BID Aspirin EC [Ecotrin Low Dose] 81 mg PO DAILY Collagenase [Santyl Ointment] 1 applic TOPICAL DAILY Multivitamins, Thera [Multivitamin (formulary)] 1 tab PO DAILY carvediloL [Coreg] 6.25 mg PO BID Discontinued Acetaminophen Tab [Tylenol] 650 mg PO Q4H PRN PRN Reason: Pain Discharge Medication List Aspirin EC [Ecotrin Low Dose] 81 mg PO DAILY 03/11/23 [History] Collagenase [Santyl Ointment] 1 applic TOPICAL DAILY 03/11/23 [History] Furosemide [Lasix] 20 mg PO BID 03/11/23 [History] Multivitamins, Thera [Multivitamin (formulary)] 1 tab PO DAILY 03/11/23 [History] carvediloL [Coreg] 6.25 mg PO BID 06/26/23 [History] Acetaminophen Tab [Tylenol] 650 mg PO Q6HR PRN tab 06/28/23 [Rx] Nystatin 100,000 Unit/gm Powd [Mycostatin Powder] 1 applic TOPICAL BID #0 each 06/28/23 [Rx] polyethylene glycoL 3350 [Miralax] 17 gm PO DAILY packet 06/28/23 [Rx] Follow up Appointment(s)/Referral(s): Kenzie Coleman MD [Primary Care Provider] - 1-2 days Patient Instructions/Handouts: Weakness (DC) Activity/Diet/Wound Care/Special Instructions: Please see your PCP. Discharge Disposition: TRANSFER TO SNF/F
== END 2023-06-28 18:03 ==
LOC: EC 14:07 → SUPCPDRO 14:07 → INTOOBSV 16:20 → 5NMEDONC 16:20 → UNDODISIN 06-28 18:03
PROVIDERS: ADMIT Student in an Organized Health Care Education/Training Program; ATTEND Student in an Organized Health Care Education/Training Program
DX: R54 Age-related physical debility (principal); E87.3 Alkalosis; E87.1 Hypo-osmolality and hyponatremia; R26.9 Unspecified abnormalities of gait and mobility; I27.20 Pulmonary hypertension, unspecified; S90.821A Blister (nonthermal), right foot, initial encounter; X58.XXXA Exposure to other specified factors, initial encounter; L30.4 Erythema intertrigo; I11.0 Hypertensive heart disease with heart failure; I50.9 Heart failure, unspecified; E11.9 Type 2 diabetes mellitus without complications; I25.10 Atherosclerotic heart disease of native coronary artery without angina pectoris; M19.041 Primary osteoarthritis, right hand; R60.0 Localized edema; K59.00 Constipation, unspecified; Z87.891 Personal history of nicotine dependence; Z95.0 Presence of cardiac pacemaker; Z95.5 Presence of coronary angioplasty implant and graft; Z79.82 Long term (current) use of aspirin; Z79.899 Other long term (current) drug therapy
CPT/HCPCS: 96372 ×2; 96374; 99285; 36415; 93005; 97530 ×2; 97162; 97166; 83880; 80053; 80048 ×2; 83605; 83735 ×2; 84484; 85025; 85610; 85730; 81003; 73130; 71046; G0378 ×3; J1940; J1650 ×2

== ENCOUNTER 2023-07-20 13:24 | Inpatient (IN) | payer MEDICARE ==
--- NOTE | 2023-07-20 13:40 | ED ---
General Adult HPI - General Chief complaint: Shortness of Breath Stated complaint: SOB Time Seen by Provider: 07/20/23 13:30 Source: patient, EMS, RN notes reviewed Mode of arrival: EMS Limitations: no limitations - History of Present Illness Initial comments: Patient is a pleasant 78-year-old female presenting to the emergency department with concerns for difficulty breathing. Onset of symptoms was around a week ago. Patient does have cough with sputum of unclear color. Patient has had leg swelling for the last couple weeks. No calf pain. Patient reportedly had an elevated d-dimer. Patient denies chronic lung disease. Patient does present from half-way. - Related Data Home Medications Medication Instructions Recorded Confirmed Aspirin EC [Ecotrin Low Dose] 81 mg PO DAILY@0900 03/11/23 07/20/23 Collagenase [Santyl Ointment] 1 applic TOPICAL HS 03/11/23 07/20/23 Furosemide [Lasix] 20 mg PO BID@0600,1300 03/11/23 07/20/23 Multivitamins, Thera [Multivitamin 1 tab PO DAILY@0900 03/11/23 07/20/23 (formulary)] carvediloL [Coreg] 6.25 mg PO BID@0900,2100 06/26/23 07/20/23 Amino Acids/Protein Hydrolys 30 ml PO DAILY@0900 07/20/23 07/20/23 [Pro-Stat Awc Liquid] Clotrimazole/Betameth Cream 1 applic TOPICAL BID 07/20/23 07/20/23 [Lotrisone] Clotrimazole/Betameth Cream 1 applic TOPICAL DAILY 07/20/23 07/20/23 [Lotrisone] Lactose-Reduced Food [Ensure Plus] 1 can PO DAILY@0900 07/20/23 07/20/23 polyethylene glycoL 3350 [Miralax] 17 gm PO DAILY@0900 07/20/23 07/20/23 Previous Rx's Medication Instructions Recorded Acetaminophen Tab [Tylenol] 650 mg PO Q6HR PRN tab 06/28/23 Allergies Allergy/AdvReac Type Severity Reaction Status Date / Time atorvastatin Allergy Unknown Verified 07/20/23 14:54 lisinopril Allergy Unknown Verified 07/20/23 14:54 losartan [From Cozaar] Allergy Unknown Verified 07/20/23 14:54 rosuvastatin [From Crestor] Allergy Unknown Verified 07/20/23 14:54 Review of Systems ROS Statement: Those systems with pertinent positive or pertinent negative responses have been documented in the HPI. ROS Other: All systems not noted in ROS Statement are negative. Constitutional: Denies: fever Eyes: Denies: eye pain ENT: Denies: ear pain Respiratory: Reports: as per HPI, cough, dyspnea Cardiovascular: Reports: edema Endocrine: Denies: fatigue Genitourinary: Denies: dysuria Musculoskeletal: Denies: back pain Past Medical History Past Medical History: Heart Failure, Diabetes Mellitus, Hypertension Additional Past Medical History / Comment(s): controlled DM History of Any Multi-Drug Resistant Organisms: C-DIFF Date of last positivie culture/infection: 03/08/23 MDRO Source:: Unknown Past Surgical History: Cholecystectomy, Joint Replacement, Pacemaker Additional Past Surgical History / Comment(s): Cateract surgery bilaterally, Broken left hip with surgical repair Additional Past Anesthesia/Blood Transfusion Reaction / Comment(s): No transfusions received Type of Cardiac Device: Permanent Pacemaker Device Placement Date:: 2017 Past Psychological History: No Psychological Hx Reported Smoking Status: Never smoker Past Alcohol Use History: None Reported Past Drug Use History: None Reported - Past Family History Sister(s) Family Medical History: COPD General Exam Limitations: no limitations General appearance: alert, in no apparent distress Head exam: Present: normocephalic Eye exam: Present: normal appearance Neck exam: Present: normal inspection Respiratory exam: Present: decreased breath sounds (Bilateral lower) Cardiovascular Exam: Present: regular rate, normal rhythm GI/Abdominal exam: Present: soft. Absent: tenderness Extremities exam: Present: pedal edema. Absent: calf tenderness Neurological exam: Present: alert Psychiatric exam: Present: normal affect, normal mood Skin exam: Present: normal color Course Vital Signs 07/20/23 07/20/23 07/20/23 13:25 13:58 14:08 Temperature Pulse Rate 61 58 L Respiratory 18 16 18 Rate Blood Pressure 114/74 107/54 O2 Sat by Pulse 96 96 Oximetry 07/20/23 07/20/23 07/20/23 15:35 16:45 16:50 Temperature 95.7 F L 94.6 F L Pulse Rate 67 48 L Respiratory 20 18 Rate Blood Pressure 114/59 92/68 O2 Sat by Pulse 97 90 L 91 L Oximetry 07/20/23 07/20/23 16:55 17:05 Temperature Pulse Rate 66 Respiratory 18 Rate Blood Pressure 107/56 O2 Sat by Pulse 95 96 Oximetry EKG Findings - EKG Results: EKG: interpreted by KAROLINE (Paced rhythm with a rate of 63. Left axis. Wide- complex QRS. No acute ST change.) Medical Decision Making - Medical Decision Making Patient was sent from nursing facility Was pt. sent in by a medical professional or institution (, PA, TECHNICAL TESTING ENGINEER, urgent care, hospital, or half-way...) When possible be specific @ -Patient was sent from nursing facility Did you speak to anyone other than the patient for history (EMS, parent, family, police, friend...)? What history was obtained from this source @ -No Did you review nursing and triage notes (agree or disagree)? Why? @ -I reviewed and agree with nursing and triage notes Were old charts reviewed (outside hosp., previous admission, EMS record, old EKG, old radiological studies, urgent care reports/EKG's, half-way records)? Report findings @ -Chart reviewed from nursing facility Differential Diagnosis (chest pain, altered mental status, abdominal pain women, abdominal pain men, vaginal bleeding, weakness, fever, dyspnea, syncope, headache, dizziness, GI bleed, back pain, seizure, CVA, palpatations, mental health, musculoskeletal)? @ -Differential Dyspnea: Coronary syndrome, arrhythmia, tamponade, asthma, COPD, pulmonary embolism, pneumonia, pneumothorax, pulmonary effusion, anaphylaxis, diabetic ketoacidosis, flailed chest, pulmonary contusion, diaphragmatic rupture, anemia, neuromuscular, this is not meant to be an all-inclusive list. EKG interpreted by me (3pts min.). @ -As above X-rays interpreted by me (1pt min.). @ -Chest x-ray shows cardiomegaly and CHF CT interpreted by me (1pt min.). @ -Report reviewed U/S interpreted by me (1pt. min.). @ -None done What testing was considered but not performed or refused? (CT, X-rays, U/S, labs)? Why? @ -None What meds were considered but not given or refused? Why? @ -None Did you discuss the management of the patient with other professionals (professionals i.e. , ISHAN, TECHNICAL TESTING ENGINEER, lab, RT, psych nurse, oncology social worker, sales hunter, teacher, environmental compliance officer, case monitor)? Give summary @ -Case was discussed with practitioner just gaining, who will admit covering Dr. Gordillo Was smoking cessation discussed for >3mins.? @ -No Was critical care preformed (if so, how long)? @ -No Were there social determinants of health that impacted care today? How? (Homelessness, low income, unemployed, alcoholism, drug addiction, transportation, low edu. Level, literacy, decrease access to med. care, nursing home, rehab)? @ -No Was there de-escalation of care discussed even if they declined (Discuss DNR or withdrawal of care, Hospice)? DNR status @ -No What co-morbidities impacted this encounter? (DM, HTN, Smoking, COPD, CAD, Cancer, CVA, ARF, Chemo, Hep., AIDS, mental health diagnosis, sleep apnea, morbid obesity)? @ -None Was patient admitted / discharged? Hospital course, mention meds given and route, prescriptions, significant lab abnormalities, going to OR and other pertinent info. @ -Patient reevaluated and only feels a little better. Patient still has some rales on exam. Patient has no leg edema. Patient will be admitted. Admission orders written. Undiagnosed new problem with uncertain prognosis? @ -No Drug Therapy requiring intensive monitoring for toxicity (Heparin, Nitro, Insulin, Cardizem)? @ -No Were any procedures done? @ -No Diagnosis/symptom? @ -Dyspnea, CHF Acute, or Chronic, or Acute on Chronic? @ -Acute on chronic Uncomplicated (without systemic symptoms) or Complicated (systemic symptoms)? @ -default Side effects of treatment? @ -No Exacerbation, Progression, or Severe Exacerbation? @ -Exacerbation Poses a threat to life or bodily function? How? (Chest pain, USA, SD, pneumonia, PE, COPD, DKA, ARF, appy, cholecystitis, CVA, Diverticulitis, Homicidal, Suicidal, threat to staff... and all critical care pts) @ -No - Lab Data Result diagrams: 07/20/23 13:58 07/20/23 13:58 Lab Results 07/20/23 07/20/23 07/20/23 Range/Units 13:58 13:58 13:58 WBC 3.5 L (3.8-10.6) k/uL RBC 3.93 (3.80-5.40) m/uL Hgb 11.5 (11.4-16.0) gm/dL Hct 35.5 (34.0-46.0) % MCV 90.4 (80.0-100.0) fL MCH 29.2 (25.0-35.0) pg MCHC 32.3 (31.0-37.0) g/dL RDW 18.1 H (11.5-15.5) % Plt Count 185 (150-450) k/uL MPV 7.6 Neutrophils % 59 % Lymphocytes % 23 % Monocytes % 5 % Eosinophils % 10 % Basophils % 1 % Neutrophils # 2.0 (1.3-7.7) k/uL Lymphocytes # 0.8 L (1.0-4.8) k/uL Monocytes # 0.2 (0-1.0) k/uL Eosinophils # 0.3 (0-0.7) k/uL Basophils # 0.0 (0-0.2) k/uL Hypochromasia Slight Anisocytosis Slight PT 10.0 (10.0-12.5) sec INR 0.9 (<1.2) APTT 28.2 (22.0-30.0) sec D-Dimer 1.26 H (<0.60) mg/L FEU Sodium 136 L (137-145) mmol/L Potassium 4.4 (3.5-5.1) mmol/L Chloride 92 L (98-107) mmol/L Carbon Dioxide 38 H (22-30) mmol/L Anion Gap 6 mmol/L BUN 65 H (7-17) mg/dL Creatinine 0.96 (0.52-1.04) mg/dL Est GFR (CKD-EPI)AfAm 66 (>60 ml/min/1.73 sqM) Est GFR (CKD-EPI)NonAf 57 (>60 ml/min/1.73 sqM) Glucose 103 H (74-99) mg/dL Plasma Lactic Acid Vj (0.7-2.0) mmol/L Calcium 9.3 (8.4-10.2) mg/dL Magnesium 2.2 (1.6-2.3) mg/dL Total Bilirubin 0.6 (0.2-1.3) mg/dL AST 30 (14-36) U/L ALT 17 (4-34) U/L Alkaline Phosphatase 81 (38-126) U/L Troponin I (0.000-0.034) ng/mL NT-Pro-B Natriuret Pep 1490 pg/mL Total Protein 6.7 (6.3-8.2) g/dL Albumin 3.7 (3.5-5.0) g/dL Influenza Type A (PCR) (Not Detectd) Influenza Type B (PCR) (Not Detectd) RSV (PCR) (Not Detectd) SARS-CoV-2 (PCR) (Not Detectd) 07/20/23 07/20/23 07/20/23 Range/Units 13:58 13:58 16:32 WBC (3.8-10.6) k/uL RBC (3.80-5.40) m/uL Hgb (11.4-16.0) gm/dL Hct (34.0-46.0) % MCV (80.0-100.0) fL MCH (25.0-35.0) pg MCHC (31.0-37.0) g/dL RDW (11.5-15.5) % Plt Count (150-450) k/uL MPV Neutrophils % % Lymphocytes % % Monocytes % % Eosinophils % % Basophils % % Neutrophils # (1.3-7.7) k/uL Lymphocytes # (1.0-4.8) k/uL Monocytes # (0-1.0) k/uL Eosinophils # (0-0.7) k/uL Basophils # (0-0.2) k/uL Hypochromasia Anisocytosis PT (10.0-12.5) sec INR (<1.2) APTT (22.0-30.0) sec D-Dimer (<0.60) mg/L FEU Sodium (137-145) mmol/L Potassium (3.5-5.1) mmol/L Chloride (98-107) mmol/L Carbon Dioxide (22-30) mmol/L Anion Gap mmol/L BUN (7-17) mg/dL Creatinine (0.52-1.04) mg/dL Est GFR (CKD-EPI)AfAm (>60 ml/min/1.73 sqM) Est GFR (CKD-EPI)NonAf (>60 ml/min/1.73 sqM) Glucose (74-99) mg/dL Plasma Lactic Acid Vj 0.9 (0.7-2.0) mmol/L Calcium (8.4-10.2) mg/dL Magnesium (1.6-2.3) mg/dL Total Bilirubin (0.2-1.3) mg/dL AST (14-36) U/L ALT (4-34) U/L Alkaline Phosphatase (38-126) U/L Troponin I 0.014 (0.000-0.034) ng/mL NT-Pro-B Natriuret Pep pg/mL Total Protein (6.3-8.2) g/dL Albumin (3.5-5.0) g/dL Influenza Type A (PCR) Not Detected (Not Detectd) Influenza Type B (PCR) Not Detected (Not Detectd) RSV (PCR) Not Detected (Not Detectd) SARS-CoV-2 (PCR) Not Detected (Not Detectd) Disposition Clinical Impression: CHF (congestive heart failure) Disposition: ADMITTED IP TO THIS HOSP Is patient prescribed a controlled substance at d/c from ED?: No Referrals: Kenzie Coleman MD [Primary Care Provider] - 1-2 days Time of Disposition: 17:59
[2023-07-20 14:13] LABS: Anisocytosis Slight; Basophils % (A) 1 %; Eosinophils # (A) 0.3 k/uL (0-0.7); Eosinophils % (A) 10 %; HCT 35.5 % (34.0-46.0); HGB 11.5 gm/dL (11.4-16.0); Hypochromasia Slight; Lymphocytes # (A) 0.8 k/uL (1.0-4.8); Lymphocytes % (A) 23 %; MCH 29.2 pg (25.0-35.0); MCHC 32.3 g/dL (31.0-37.0); MCV 90.4 fL (80.0-100.0); Mean Platelet Volume 7.6; Monocytes # (A) 0.2 k/uL (0-1.0); Monocytes % (A) 5 %; Neutrophils % (A) 59 %; Platelet Count 185 k/uL (150-450); RBC 3.93 m/uL (3.80-5.40); RDW 18.1 % (11.5-15.5); WBC 3.5 k/uL (3.8-10.6)
--- NOTE | 2023-07-20 14:29 | XR ---
EXAMINATION TYPE: XR chest 2V DATE OF EXAM: 07/20/2023 COMPARISON: 06/26/2023 HISTORY: Shortness of breath TECHNIQUE: Frontal and lateral views of the chest are obtained. FINDINGS: Scattered senescent parenchymal changes noted. Chronic elevation left hemidiaphragm. Pulmonary venous congestion without overt failure. No evidence for infiltrate. No evidence for atelectasis. Heart size is stable. Mediastinal structures are stable and grossly unremarkable. No evidence for hilar prominence. Degenerative changes dorsal spine. IMPRESSION: 1. Chronic elevation left hemidiaphragm. Pulmonary venous congestion without overt failure.
[2023-07-20 14:38] LABS: INR 0.9 (<1.2); Partial Thromboplastin Time 28.2 sec (22.0-30.0)
[2023-07-20 14:58] LABS: ALT 17 U/L (4-34); AST 30 U/L (14-36); African American GFR (CKD) 66 (>60 ml/min/1.73 sqM); Albumin 3.7 g/dL (3.5-5.0); Alkaline Phosphatase 81 U/L (38-126); Anion Gap 6 mmol/L; Blood Urea Nitrogen 65 mg/dL (7-17); Calcium 9.3 mg/dL (8.4-10.2); Carbon Dioxide 38 mmol/L (22-30); Chloride 92 mmol/L (98-107); Glucose 103 mg/dL (74-99); Magnesium 2.2 mg/dL (1.6-2.3); Non-African American GFR(CKD) 57 (>60 ml/min/1.73 sqM); Potassium 4.4 mmol/L (3.5-5.1); Sodium 136 mmol/L (137-145); Total Bilirubin 0.6 mg/dL (0.2-1.3); Total Protein 6.7 g/dL (6.3-8.2)
[2023-07-20 15:08] LABS: NT-Pro-B-Type Natriuretic Pept 1490 pg/mL
[2023-07-20] MEDS ORDERED: SODIUM CHLORIDE 0.9% 1,000 ML IV STA (15:28)
--- NOTE | 2023-07-20 16:22 | CT ---
EXAMINATION TYPE: CT angio chest DATE OF EXAM: 07/20/2023 COMPARISON: 03/13/2023 HISTORY: Dyspnea. CT DLP: 364.9 mGycm CONTRAST: CT chest with contrast and 3D reconstruction with MIP imaging is performed with IV Contrast, patient injected with 100 ml mL of Isovue 370. Contrast-enhanced CT of the chest was performed through the course of the pulmonary arteries with kena g and mediastinal window settings submitted. 3D reconstruction with MIP imaging was also performed. PULMONARY ARTERIES: The pulmonary arteries and their major tributaries are patent. I do not see kumar dence for sizable filling defect to suggest pulmonary embolic process. Chronic elevation left hemidia phragm. LUNGS: The lungs are clear and free of infiltrate. No evidence for atelectasis. No pulmonary nodule or mass is detected. No pleural effusion. MEDIASTINUM: Thoracic aorta is of normal caliber,however, evaluation is limited given timing of the contrast bolus. If there is concern for thoracic aortic pathology consider SKYE. Correlate clinicall y . The heart is enlarged. No evidence for mediastinal mass. No mediastinal lymph nodes greater curt n 1cm. HILAR STRUCTURES: No evidence for mass. No hilar lymph nodes greater than 1 cm. UPPER ABDOMEN: No significant abnormality is seen. IMPRESSION: 1. No evidence for Pulmonary embolism at this time.
[2023-07-20] MEDS ORDERED: ASPIRIN 325 MG TAB PO STA (17:59)
[2023-07-20] MEDS: NITROGLYCERIN OINT 1 INCH/GM PACKET TOPICAL SCH (18:38)
[2023-07-20] MEDS: FUROSEMIDE 10 MG/ML 4 ML VIAL IV SCH (18:42)
[2023-07-21] MEDS: NITROGLYCERIN OINT 1 INCH/GM PACKET TOPICAL SCH ×4 (01:06→18:05)
[2023-07-21] MEDS: FUROSEMIDE 10 MG/ML 4 ML VIAL IV SCH (06:32)
[2023-07-21] MEDS ORDERED: carvediloL 6.25 MG TAB PO SCH (09:00)
[2023-07-21] MEDS ORDERED: ASPIRIN 325 MG TAB PO SCH (09:00)
[2023-07-21] MEDS ORDERED: ZINC OXIDE PASTE (Z-GUARD) 1 APPLIC APPLIC TOPICAL PRN (09:44)
--- NOTE | 2023-07-21 09:46 | P.CRDCN ---
History of Present Illness Consult date: 07/21/23 Consult reason: congestive heart failure History of present illness: History of present illness: This is a 78 year old female with past medical history of hypertension, diabetes. Patient states that she was recently hospitalized in [place] in February and March for pneumonia and was discharged to [facility] for rehab which she is currently residing. Patient follows with Dr. Raygoza in [facility]. Patient was brought in the hospital due to difficulty in breathing is been going on for one week on Monday. She also complains of lower extremity edema. Patient is seen today in the emergency center waiting for a [facility] bed. She has been started on IV Lasix 40 mg every 12 hours. She states she is feeling better at this time. EKG paced rhythm Chest x-ray: Pulmonary venous congestion CTA negative for PE WBC 3.4, hemoglobin 0.5, platelet count 185. D-dimer 1.26. Sodium 136, potassium 4.4, chloride 92, CO2 38, BUN 65 creatinine 0.96. Blood sugar 103. Troponin negative 1. ProBNP 1490 normal for patient's age Home cardiac medications: Aspirin 81 mg daily, Coreg 6.25 mg twice daily, Lasix 20 mg twice daily. Echocardiogram 03/11/2023 performed here revealing normal LV systolic function, moderate pulmonary hypertension, dilated right ventricle, moderate mitral stenosis and moderate mitral regurgitation, mitral valve is extremely calcified. Aortic sclerosis with mild aortic stenosis. Review Of Systems: At the time of my evaluation: Constitutional: No fever, no chills. EENT: No headache. No dizziness. Lungs: Reported shortness of breath, cough, no sputum production. No wheezing. Cardiovascular: No chest pain, no lower extremity edema. No palpitations. No paroxysmal nocturnal dyspnea. No orthopnea. No lightheadedness or dizziness. No syncopal episodes. Abdominal: No abdominal pain. No nausea, vomiting. Musculoskeletal: No myalgias. No muscle weakness, no frequent falls. Integumentary: No wounds. No rash. No unusual bruising. Neurologic: No aphasia. No facial droop. No change in mentation. Physical examination: Gen: This is a 78 year old female resting on the edge of the ER stretcher, in no acute respiratory distress. VS: reviewed HEENT: Head is atraumatic, normocephalic. Pupils equal, round. Sclerae is anicteric. NECK: Supple. No JVD. . LUNGS: Decreased air entry. No intercostal retractions. HEART: Regular rate and rhythm. Systolic murmur at the left sternal border. EXTREMITIES: No pedal edema. No calf tenderness. NEUROLOGICAL: Patient is awake, alert and oriented x3. Assessment: Probable acute diastolic heart failure General debility Recovering from pneumonia Probable pulmonary fibrosis Hypertension Diabetes Plan: Continue patient's home cardiac medications and decrease Coreg to 3.125 mg twice daily Change IV Lasix to 20 mg every 8 hours 3 doses and then resume patient's home Lasix dose Monitor I&O, daily weights, electrolytes and renal function Obtain 2-D echocardiogram and Doppler study to assess cardiac structure and function Further recommendations to follow based upon clinical course Thank you kindly for this consultation. Nurse practitioner note has been reviewed, I agree with documented findings and plan of care. Patient was seen and examined. Past Medical History Past Medical History: Heart Failure, Diabetes Mellitus, Hypertension Additional Past Medical History / Comment(s): controlled DM History of Any Multi-Drug Resistant Organisms: C-DIFF Date of last positivie culture/infection: 03/08/23 MDRO Source:: Unknown Past Surgical History: Cholecystectomy, Joint Replacement, Pacemaker Additional Past Surgical History / Comment(s): Cateract surgery bilaterally, Broken left hip with surgical repair Additional Past Anesthesia/Blood Transfusion Reaction / Comment(s): No transfusions received Type of Cardiac Device: Permanent Pacemaker Device Placement Date:: 2017 Past Psychological History: No Psychological Hx Reported Smoking Status: Former smoker Past Alcohol Use History: None Reported Past Drug Use History: None Reported - Past Family History Sister(s) Family Medical History: COPD Medications and Allergies Home Medications Medication Instructions Recorded Confirmed Type Aspirin EC [Ecotrin Low Dose] 81 mg PO DAILY@0900 03/11/23 07/20/23 History Collagenase [Santyl Ointment] 1 applic TOPICAL HS 03/11/23 07/20/23 History Furosemide [Lasix] 20 mg PO BID@0600,1300 03/11/23 07/20/23 History Multivitamins, Thera [Multivitamin 1 tab PO DAILY@0900 03/11/23 07/20/23 History (formulary)] carvediloL [Coreg] 6.25 mg PO BID@0900,2100 06/26/23 07/20/23 History Acetaminophen Tab [Tylenol] 650 mg PO Q6HR PRN tab 06/28/23 07/20/23 Rx Amino Acids/Protein Hydrolys 30 ml PO DAILY@0900 07/20/23 07/20/23 History [Pro-Stat Awc Liquid] Clotrimazole/Betameth Cream 1 applic TOPICAL BID 07/20/23 07/20/23 History [Lotrisone] Clotrimazole/Betameth Cream 1 applic TOPICAL DAILY 07/20/23 07/20/23 History [Lotrisone] Lactose-Reduced Food [Ensure Plus] 1 can PO DAILY@0900 07/20/23 07/20/23 History polyethylene glycoL 3350 [Miralax] 17 gm PO DAILY@0900 07/20/23 07/20/23 History Allergies Allergy/AdvReac Type Severity Reaction Status Date / Time atorvastatin Allergy Unknown Verified 07/20/23 14:54 lisinopril Allergy Unknown Verified 07/20/23 14:54 losartan [From Cozaar] Allergy Unknown Verified 07/20/23 14:54 rosuvastatin [From Crestor] Allergy Unknown Verified 07/20/23 14:54 Physical Exam Vitals: Vital Signs Temp Pulse Pulse Resp BP BP Pulse Ox 07/21/23 07:51 65 18 102/65 94 L 07/21/23 06:33 100/72 07/21/23 04:42 68 17 100/68 97 07/21/23 03:36 98.1 F 62 16 98/64 94 L 07/21/23 01:21 97.7 F 62 16 115/45 96 07/20/23 22:28 59 L 18 93/63 96 07/20/23 22:00 64 15 94/52 95 07/20/23 21:00 62 13 94/53 95 07/20/23 20:30 96.2 F L 57 L 15 94/53 92 L 07/20/23 20:00 56 L 13 106/61 96 07/20/23 19:00 69 16 106/61 97 07/20/23 18:30 66 17 94/59 96 07/20/23 18:01 97 07/20/23 18:00 96.0 F L 61 18 101/59 96 07/20/23 17:05 66 18 107/56 96 07/20/23 16:55 95 07/20/23 16:50 91 L 07/20/23 16:45 94.6 F L 48 L 18 92/68 90 L 07/20/23 15:35 95.7 F L 67 20 114/59 97 07/20/23 14:08 18 07/20/23 13:58 58 L 16 107/54 96 07/20/23 13:25 61 18 114/74 96 Intake and Output 07/20/23 07/21/23 07/21/23 22:59 06:59 14:59 Output Total 1000 Balance -1000 Output: Urine 1000 Other: Voiding Method Toilet Weight 81.284 kg Results 07/20/23 13:58 07/20/23 13:58 Cardiac Enzymes 07/20/23 07/20/23 Range/Units 13:58 13:58 AST 30 (14-36) U/L Troponin I 0.014 (0.000-0.034) ng/mL Coagulation 07/20/23 Range/Units 13:58 PT 10.0 (10.0-12.5) sec APTT 28.2 (22.0-30.0) sec CBC 07/20/23 Range/Units 13:58 WBC 3.5 L (3.8-10.6) k/uL RBC 3.93 (3.80-5.40) m/uL Hgb 11.5 (11.4-16.0) gm/dL Hct 35.5 (34.0-46.0) % Plt Count 185 (150-450) k/uL Comprehensive Metabolic Panel 07/20/23 Range/Units 13:58 Sodium 136 L (137-145) mmol/L Potassium 4.4 (3.5-5.1) mmol/L Chloride 92 L (98-107) mmol/L Carbon Dioxide 38 H (22-30) mmol/L BUN 65 H (7-17) mg/dL Creatinine 0.96 (0.52-1.04) mg/dL Glucose 103 H (74-99) mg/dL Calcium 9.3 (8.4-10.2) mg/dL AST 30 (14-36) U/L ALT 17 (4-34) U/L Alkaline Phosphatase 81 (38-126) U/L Total Protein 6.7 (6.3-8.2) g/dL Albumin 3.7 (3.5-5.0) g/dL Current Medications Generic Name Dose Route Start Last Admin Trade Name Freq PRN Reason Stop Dose Admin Aspirin 325 mg 07/21/23 09:00 Aspirin 325 Mg Tab PO DAILY TIERRA Furosemide 40 mg 07/20/23 18:00 07/21/23 06:32 Furosemide 10 Mg/Ml 4 Ml Vial IV 40 mg Q12H TIERRA Administration Nitroglycerin 1 inch 07/20/23 18:00 07/21/23 06:19 Nitroglycerin Oint 1 Inch/Gm Packet TOPICAL 07/21/23 18:01 Not Given Q6HR TIERRA Intake and Output 07/20/23 07/21/23 07/21/23 22:59 06:59 14:59 Output Total 1000 Balance -1000 Output: Urine 1000 Other: Voiding Method Toilet Weight 81.284 kg 07/20/23 13:58 07/20/23 13:58
[2023-07-21] MEDS: FUROSEMIDE 10 MG/ML 2 ML VIAL IV SCH ×2 (10:01→17:15)
[2023-07-21] MEDS: carvediloL 3.125 MG TAB PO SCH ×2 (10:01→18:25)
[2023-07-21] MEDS ORDERED: DEXTROSE 50% SYRINGE 50 ML IVP PRN ×2 (10:03)
[2023-07-21] MEDS: ASPIRIN 81 MG PO SCH (10:06)
--- NOTE | 2023-07-21 10:09 | P.HPIM ---
History of Present Illness This is a pleasant 78 years old female with multiple medical problems, that baseline she is bedbound and wheelchair-bound She comes in because of worsening dyspnea over the last week associated with bilateral leg swelling but denies chest pain She denies any other GI or urinary or neurological symptoms She is not on oxygen at home. Alcohol or illicit drugs. Vitals stable, labs are unremarkable, proBNP 1490. D-dimer mildly elevated but CTA is negative for PE. EKG showing paced rhythm Patient was started on IV Lasix 20 mg to the symptoms and home dose of aspirin. Echocardiogram on 03/11/2023 showing ejection fraction of 55-60% with moderate pulmonary hypertension and elevated right ventricle and moderate mitral stenosis and mitral regurgitation Review of Systems Review of systems CONSTITUTIONAL: No fever, no malaise, no fatigue. HEENT: No recent visual problems or hearing problems. Denied any sore throat. CARDIOVASCULAR: No orthopnea, PND, no palpitations, no syncope. PULMONARY: No chest pain, no cough, no hemoptysis. GASTROINTESTINAL: No diarrhea, no nausea, no vomiting, no abdominal pain. Normoactive bowel sounds. NEUROLOGICAL: No headaches, no weakness, no numbness. HEMATOLOGICAL: Denies any bleeding or petechiae. GENITOURINARY: Denies any burning micturition, frequency, or urgency. MUSCULOSKELETAL/RHEUMATOLOGICAL: Denies any joint pain, swelling, or any muscle pain. ENDOCRINE: Denies any polyuria or polydipsia. Past Medical History Past Medical History: Heart Failure, Diabetes Mellitus, Hypertension Additional Past Medical History / Comment(s): controlled DM History of Any Multi-Drug Resistant Organisms: C-DIFF Date of last positivie culture/infection: 03/08/23 MDRO Source:: Unknown Past Surgical History: Cholecystectomy, Joint Replacement, Pacemaker Additional Past Surgical History / Comment(s): Cateract surgery bilaterally, Broken left hip with surgical repair Additional Past Anesthesia/Blood Transfusion Reaction / Comment(s): No transfusions received Type of Cardiac Device: Permanent Pacemaker Device Placement Date:: 2017 Past Psychological History: No Psychological Hx Reported Smoking Status: Former smoker Past Alcohol Use History: None Reported Past Drug Use History: None Reported - Past Family History Sister(s) Family Medical History: COPD Medications and Allergies Home Medications Medication Instructions Recorded Confirmed Type Aspirin EC [Ecotrin Low Dose] 81 mg PO DAILY@0900 03/11/23 07/20/23 History Collagenase [Santyl Ointment] 1 applic TOPICAL HS 03/11/23 07/20/23 History Furosemide [Lasix] 20 mg PO BID@0600,1300 03/11/23 07/20/23 History Multivitamins, Thera [Multivitamin 1 tab PO DAILY@0900 03/11/23 07/20/23 History (formulary)] carvediloL [Coreg] 6.25 mg PO BID@0900,2100 06/26/23 07/20/23 History Acetaminophen Tab [Tylenol] 650 mg PO Q6HR PRN tab 06/28/23 07/20/23 Rx Amino Acids/Protein Hydrolys 30 ml PO DAILY@0900 07/20/23 07/20/23 History [Pro-Stat Awc Liquid] Clotrimazole/Betameth Cream 1 applic TOPICAL BID 07/20/23 07/20/23 History [Lotrisone] Clotrimazole/Betameth Cream 1 applic TOPICAL DAILY 07/20/23 07/20/23 History [Lotrisone] Lactose-Reduced Food [Ensure Plus] 1 can PO DAILY@0900 07/20/23 07/20/23 History polyethylene glycoL 3350 [Miralax] 17 gm PO DAILY@0900 07/20/23 07/20/23 History Allergies Allergy/AdvReac Type Severity Reaction Status Date / Time atorvastatin Allergy Unknown Verified 07/20/23 14:54 lisinopril Allergy Unknown Verified 07/20/23 14:54 losartan [From Cozaar] Allergy Unknown Verified 07/20/23 14:54 rosuvastatin [From Crestor] Allergy Unknown Verified 07/20/23 14:54 Physical Exam Vitals: Vital Signs Temp Pulse Pulse Resp BP BP Pulse Ox 07/21/23 09:20 61 18 112/66 98 07/21/23 07:51 65 18 102/65 94 L 07/21/23 06:33 100/72 07/21/23 04:42 68 17 100/68 97 07/21/23 03:36 98.1 F 62 16 98/64 94 L 07/21/23 01:21 97.7 F 62 16 115/45 96 07/20/23 22:28 59 L 18 93/63 96 07/20/23 22:00 64 15 94/52 95 07/20/23 21:00 62 13 94/53 95 07/20/23 20:30 96.2 F L 57 L 15 94/53 92 L 07/20/23 20:00 56 L 13 106/61 96 07/20/23 19:00 69 16 106/61 97 07/20/23 18:30 66 17 94/59 96 07/20/23 18:01 97 07/20/23 18:00 96.0 F L 61 18 101/59 96 07/20/23 17:05 66 18 107/56 96 07/20/23 16:55 95 07/20/23 16:50 91 L 07/20/23 16:45 94.6 F L 48 L 18 92/68 90 L 07/20/23 15:35 95.7 F L 67 20 114/59 97 07/20/23 14:08 18 07/20/23 13:58 58 L 16 107/54 96 07/20/23 13:25 61 18 114/74 96 Intake and Output 07/20/23 07/21/23 07/21/23 22:59 06:59 14:59 Output Total 1000 Balance -1000 Output: Urine 1000 Other: Voiding Method Toilet Weight 81.284 kg GENERAL: The patient is alert and oriented x3, not in any acute distress. Well developed, well nourished. HEENT: Pupils are round and equally reacting to light. EOMI. No scleral icterus. No conjunctival pallor. Normocephalic, atraumatic. No pharyngeal erythema. No thyromegaly. CARDIOVASCULAR: S1 and S2 present. No murmurs, rubs, or gallops. -PULMONARY: Chest is clear to auscultation, no wheezing , lateral basal crack les. ABDOMEN: Soft, nontender, nondistended, normoactive bowel sounds. No palpable organomegaly. MUSCULOSKELETAL: No joint swelling or deformity. -EXTREMITIES: No cyanosis, clubbing, bilateral pitting leg edema NEUROLOGICAL: Gross neurological examination did not reveal any focal deficits. SKIN: No rashes. no petechiae. Results CBC & Chem 7: 07/20/23 13:58 07/20/23 13:58 Labs: Abnormal Lab Results - Last 24 Hours (Table) 07/20/23 07/20/23 07/20/23 Range/Units 13:58 13:58 13:58 WBC 3.5 L (3.8-10.6) k/uL RDW 18.1 H (11.5-15.5) % Lymphocytes # 0.8 L (1.0-4.8) k/uL D-Dimer 1.26 H (<0.60) mg/L FEU Sodium 136 L (137-145) mmol/L Chloride 92 L (98-107) mmol/L Carbon Dioxide 38 H (22-30) mmol/L BUN 65 H (7-17) mg/dL Glucose 103 H (74-99) mg/dL Thrombosis Risk Factor Assmnt - Choose All That Apply Any of the Below Risk Factors Present?: Yes Each Factor Represents 1 point: Obesity (BMI >25), Swollen legs (current) Other Risk Factors: Yes Each Risk Factor Represents 3 Points: Age 75 years or older Other congenital or acquired thrombophilia - If yes, enter type in comment: No Thrombosis Risk Factor Assessment Total Risk Factor Score: 5 Thrombosis Risk Factor Assessment Level: High Risk Assessment and Plan Assessment: Acute on chronic CHF, diastolic with ejection fraction 55-60% Moderate mitral stenosis and regurgitation with moderate pulmonary hypertension and dilated right ventricle Hypertension Bedbound and wheelchair-bound known history of broken hip surgical field. Status post permanent pacemaker Plan: continue with IV Lasix 20 mg 3 times a day Monitor labs. Cardiology consult Labs and medication were reviewed.. Continue same treatment. Continue with symptomatic treatment. Resume home medication. Monitor labs and vitals. DVT and GI prophylaxis. Further recommendations as per clinical course of the patient DVT prophylaxis: Subcutaneous heparin GI Prophylaxis: Pepcid Prognosis is guarded
[2023-07-21 12:05] LABS: Glucose,Whole Blood 125 mg/dL (70-110)
[2023-07-21] MEDS: INSULIN ASPART (NovoLOG) 100 UNIT/ML VIAL SQ SCH ×3 (12:16→21:14)
[2023-07-21 13:07] LABS: Appearance,Urine Clear (Clear); Bilirubin,Urine Negative (Negative); Blood,Urine Negative (Negative); Color,Urine Colorless; Glucose,Urine (UA) Negative (Negative); Ketones,Urine Negative (Negative); Leukocyte Esterase,Urine Negative (Negative); Nitrite,Urine Negative (Negative); Protein,Urine Negative (Negative); Specific Gravity,Urine 1.011 (1.001-1.035); Urobilinogen,Urine <2.0 mg/dL (<2.0)
[2023-07-21 17:09] LABS: Glucose,Whole Blood 104 mg/dL (70-110)
[2023-07-21 20:22] LABS: Glucose,Whole Blood 140 mg/dL (70-110)
[2023-07-21] MEDS ORDERED: FAMOTIDINE 20 MG/2 ML VIAL IV SCH (21:00)
[2023-07-21] MEDS: FAMOTIDINE 20 MG TAB PO SCH (21:18)
[2023-07-21] MEDS: HEPARIN SODIUM,PORCINE 5,000 UNIT/ML 1 ML VIAL SQ SCH (21:18)
[2023-07-21] MEDS: NYSTATIN 100,000 UNIT/GM POWD 15 GM TOPICAL SCH (22:35)
[2023-07-22] MEDS: FUROSEMIDE 10 MG/ML 2 ML VIAL IV SCH (00:01)
[2023-07-22] MEDS: carvediloL 3.125 MG TAB PO SCH ×3 (08:36→16:55)
[2023-07-22] MEDS: INSULIN ASPART (NovoLOG) 100 UNIT/ML VIAL SQ SCH ×4 (08:37→21:19)
[2023-07-22 08:39] LABS: Glucose,Whole Blood 68 mg/dL (70-110)
[2023-07-22 09:01] LABS: Glucose,Whole Blood 119 mg/dL (70-110)
[2023-07-22] MEDS: polyethylene glycoL 3350 17 GM POWD.PACK PO SCH (09:04)
[2023-07-22] MEDS: ASPIRIN 81 MG PO SCH (09:04)
[2023-07-22] MEDS: FAMOTIDINE 20 MG TAB PO SCH (09:04)
[2023-07-22] MEDS: FUROSEMIDE 40 MG TAB PO SCH ×2 (09:04→16:55)
[2023-07-22] MEDS: NYSTATIN 100,000 UNIT/GM POWD 15 GM TOPICAL SCH ×2 (09:05→20:47)
[2023-07-22] MEDS: HEPARIN SODIUM,PORCINE 5,000 UNIT/ML 1 ML VIAL SQ SCH ×2 (09:05→20:47)
[2023-07-22 09:29] LABS: Blood Urea Nitrogen 36.2 mg/dL (9.0-27.0); Chloride 95 mmol/L (96-109); Glucose 61 mg/dL (70-110); Potassium 4.1 mmol/L (3.5-5.5); Sodium 142 mmol/L (135-145)
[2023-07-22 09:30] LABS: Calcium 9.1 mg/dL (8.7-10.3); Carbon Dioxide 38.2 mmol/L (21.6-31.8)
--- NOTE | 2023-07-22 12:09 | CA ---
Transthoracic Echo Report Name: Princess Pierre Age: 78 Gender: F : 1945 Exam Date: 07/21/2023 11:23 Exam Location: [place] [facility] Ht (in): 64 Wt (lb): 179 Ordering Physician: Jostin Ryan DO Attending/Referring Phys: Director Personal Nay Noe [facility] Procedure CPT: Indications: Heart failure Cardiac Hx: Technical Quality: Fair Contrast 1: Total Dose (mL): Contrast 2: Total Dose (mL): MEASUREMENTS (Male / Female) Normal Values 2D ECHO LV Diastolic Diameter PLAX 4.9 cm 4.2 - 5.9 / 3.9 - 5.3 cm LV Systolic Diameter PLAX 3.3 cm IVS Diastolic Thickness 1.0 cm 0.6 - 1.0 / 0.6 - 0.9 cm LVPW Diastolic Thickness 1.0 cm 0.6 - 1.0 / 0.6 - 0.9 cm LV Relative Wall Thickness 0.4 LVOT Diameter 2.0 cm Ascending Aorta Diameter 3.3 cm M-MODE Aortic Root Diameter MM 2.3 cm LA Systolic Diameter MM 4.6 cm LA Ao Ratio MM 2.0 AV Cusp Separation MM 2.0 cm DOPPLER AV Peak Velocity 114.3 cm/s AV Peak Gradient 5.2 mmHg AV Mean Velocity 78.4 cm/s AV Mean Gradient 2.8 mmHg AV Velocity Time Integral 32.6 cm LVOT Peak Velocity 98.6 cm/s LVOT Peak Gradient 3.9 mmHg LVOT Velocity Time Integral 25.8 cm LVOT Stroke Volume 84.3 cm??? LVOT Stroke Volume Index 45.2 ml/m??? LVOT Cardiac Index 2691.5 cm???/min???m??? AV Area Cont Eq vti 2.6 cm??? AV Area Cont Eq pk 2.8 cm??? MV Peak Velocity 160.0 cm/s MV Peak Gradient 10.2 mmHg MV Mean Velocity 105.1 cm/s MV Mean Gradient 4.9 mmHg MV Velocity Time Integral 42.7 cm MV Area PHT 3.7 cm??? MR Peak Velocity 450.3 cm/s MR Peak Gradient 81.1 mmHg Mitral E Point Velocity 124.9 cm/s Mitral A Point Velocity 73.1 cm/s Mitral E to A Ratio 1.7 MV Deceleration Time 185.0 ms LV E' Lateral Velocity 5.6 cm/s Mitral E to LV E' Lateral Ratio 22.2 LV E' Septal Velocity 4.4 cm/s Mitral E to LV E' Septal Ratio 28.5 TR Peak Velocity 365.1 cm/s TR Peak Gradient 53.3 mmHg Right Atrial Pressure 15.0 mmHg Pulmonary Artery Systolic Pressu 68.3 mmHg Right Ventricular Systolic Press 68.3 mmHg FINDINGS Left Ventricle Mildly increased left ventricular wall thickness. Left ventricular cavity size at the upper limits of normal. Normal left ventricular systolic function with no obvious regional wall motion abnormalities. Left ventricular ejection fraction is estimated at 55-60%. Right Ventricle Moderate right ventricular dilatation. Severe pulmonary hypertension. Right Atrium Severe right atrial dilatation. Left Atrium Severe left atrial dilatation. Mitral Valve Severe mitral annular calcification. Moderately decreased mobility of the posterior mitral valve leaflet. Moderate mitral regurgitation. Aortic Valve Trileaflet aortic valve. Diffuse thickening of the aortic valve cusps with reduced excursion. No aortic regurgitation. Tricuspid Valve Structurally normal tricuspid valve. Moderate tricuspid regurgitation. Pulmonic Valve Structurally normal pulmonic valve. Mild pulmonic regurgitation. Pericardium No pericardial effusion. Aorta Normal size aortic root and proximal ascending aorta. CONCLUSIONS Left ventricular ejection 55% Moderate mitral regurgitation Dilated left atrium Previewed by: Dr. Abran Torre MD (Electronically Signed) Final Date: 22 July 2023 12:08
[2023-07-22 12:37] LABS: Glucose,Whole Blood 120 mg/dL (70-110)
--- NOTE | 2023-07-22 12:53 | P.PN ---
Subjective Progress Note Date: 07/22/23 The patient is a 78-year-old female who follows with Drs. Raygoza in [facility]. The patient presented with lower extremity weakness and edema. Cardiology was consulted for acute heart failure. Echocardiogram reveals preserved LV function with mild valvular abnormalities Patient was interviewed and examined resting comfortably on the side of the bed. Her swelling has significantly improved over the last 24 hours with IV diuretics. She states her lower extremities are still weak and she has been residing at a local rehab facility. GENERAL: Well-appearing, well-nourished and in no acute distress. NECK: Supple without JVD or thyromegaly. LUNGS: Breath sounds diminished to auscultation bilaterally. Respiration equal and unlabored. No wheezes, rales or rhonchi. HEART: Regular rate and rhythm without murmurs, rubs or gallops. S1 and S2 heard. EXTREMITIES: Normal range of motion, +1 pitting edema. No clubbing or cyanosis. Peripheral pulses intact and strong. IMPRESSION: Lower extremity edema Diastolic heart failure, preserved ejection fraction History of pacemaker placement Hypertension Diabetes PLAN: Transitional oral diuretics Patient may be discharged from the cardiac standpoint Follow-up with primary ore storage drier in 1-2 weeks I am dictating on behalf of Dr Abran Torre's history/physical and assessment/plan. Objective - Vital Signs Vital signs: Vital Signs Temp 97.4 F L 07/22/23 08:12 Pulse 68 07/22/23 08:12 Resp 16 07/22/23 08:12 BP 110/67 07/22/23 08:12 Pulse Ox 99 07/22/23 08:12 FiO2 Intake & Output 07/21/23 07/22/23 07/22/23 18:59 06:59 18:59 Intake Total 480 1180 Output Total 1700 Balance 480 -520 Weight 81.284 kg Intake: Oral 480 1180 Output: Urine 1700 Other: Voiding Method Toilet External Catheter External Catheter # Voids 1 # Bowel Movements 1 1 - Labs CBC & Chem 7: 07/20/23 13:58 07/22/23 05:44 Labs: Abnormal Lab Results - Last 24 Hours (Table) 07/21/23 07/22/23 07/22/23 Range/Units 20:21 05:44 05:44 Chloride 95 L (96-109) mmol/L Carbon Dioxide 38.2 H (21.6-31.8) mmol/L BUN 36.2 H (9.0-27.0) mg/dL Est GFR (CKD-EPI) 58 L (>=60) BUN/Creatinine Ratio 36.20 H (12.00-20.00) Ratio Glucose 61 L (70-110) mg/dL POC Glucose (mg/dL) 140 H (70-110) mg/dL Hemoglobin A1c 6.2 H (<=6.0) % 07/22/23 07/22/23 07/22/23 Range/Units 08:18 08:55 12:35 Chloride (96-109) mmol/L Carbon Dioxide (21.6-31.8) mmol/L BUN (9.0-27.0) mg/dL Est GFR (CKD-EPI) (>=60) BUN/Creatinine Ratio (12.00-20.00) Ratio Glucose (70-110) mg/dL POC Glucose (mg/dL) 68 L 119 H 120 H (70-110) mg/dL Hemoglobin A1c (<=6.0) %
[2023-07-22 17:20] LABS: Glucose,Whole Blood 123 mg/dL (70-110)
--- NOTE | 2023-07-22 20:12 | P.PN ---
Subjective This is a pleasant 78 years old female with multiple medical problems, that baseline she is bedbound and wheelchair-bound She comes in because of worsening dyspnea over the last week associated with bilateral leg swelling but denies chest pain She denies any other GI or urinary or neurological symptoms She is not on oxygen at home. Alcohol or illicit drugs. Vitals stable, labs are unremarkable, proBNP 1490. D-dimer mildly elevated but CTA is negative for PE. EKG showing paced rhythm Patient was started on IV Lasix 20 mg to the symptoms and home dose of aspirin. Echocardiogram on 03/11/2023 showing ejection fraction of 55-60% with moderate pulmonary hypertension and elevated right ventricle and moderate mitral stenosis and mitral regurgitation 07/22/2023 patient breathing is improving Her oxygen requirements coming down to 3 L/m Creatinine 1.0 Echocardiogram showed ejection fraction 55-60% with moderate mitral regurgitation Forming Operator on the case has cleared the patient and switch to oral Lasix Home oxygen assessment and possible discharge in 24-48 hours( Objective - Vital Signs Vital signs: Vital Signs Temp 97.2 F L 07/22/23 12:45 Pulse 68 07/22/23 12:45 Resp 16 07/22/23 12:45 BP 106/63 07/22/23 12:45 Pulse Ox 91 L 07/22/23 12:45 FiO2 Intake & Output 07/21/23 07/22/23 07/22/23 18:59 06:59 18:59 Intake Total 480 1180 Output Total 1700 Balance 480 -520 Weight 81.284 kg Intake: Oral 480 1180 Output: Urine 1700 Other: Voiding Method Toilet External Catheter External Catheter # Voids 1 # Bowel Movements 1 1 - Exam GENERAL: The patient is alert and oriented x3, not in any acute distress. Well developed, well nourished. HEENT: Pupils are round and equally reacting to light. EOMI. No scleral icterus. No conjunctival pallor. Normocephalic, atraumatic. No pharyngeal erythema. No thyromegaly. CARDIOVASCULAR: S1 and S2 present. No murmurs, rubs, or gallops. PULMONARY: Chest is clear to auscultation, no wheezing , no crackles. ABDOMEN: Soft, nontender, nondistended, normoactive bowel sounds. No palpable organomegaly. MUSCULOSKELETAL: No joint swelling or deformity. EXTREMITIES: No cyanosis, clubbing, or pedal edema. NEUROLOGICAL: Gross neurological examination did not reveal any focal deficits. SKIN: No rashes. no petechiae. - Labs CBC & Chem 7: 07/20/23 13:58 07/22/23 05:44 Labs: Abnormal Lab Results - Last 24 Hours (Table) 07/21/23 07/22/23 07/22/23 Range/Units 20:21 05:44 05:44 Chloride 95 L (96-109) mmol/L Carbon Dioxide 38.2 H (21.6-31.8) mmol/L BUN 36.2 H (9.0-27.0) mg/dL Est GFR (CKD-EPI) 58 L (>=60) BUN/Creatinine Ratio 36.20 H (12.00-20.00) Ratio Glucose 61 L (70-110) mg/dL POC Glucose (mg/dL) 140 H (70-110) mg/dL Hemoglobin A1c 6.2 H (<=6.0) % 07/22/23 07/22/23 07/22/23 Range/Units 08:18 08:55 12:35 Chloride (96-109) mmol/L Carbon Dioxide (21.6-31.8) mmol/L BUN (9.0-27.0) mg/dL Est GFR (CKD-EPI) (>=60) BUN/Creatinine Ratio (12.00-20.00) Ratio Glucose (70-110) mg/dL POC Glucose (mg/dL) 68 L 119 H 120 H (70-110) mg/dL Hemoglobin A1c (<=6.0) % Assessment and Plan Assessment: Acute on chronic CHF, diastolic with ejection fraction 55-60% Moderate mitral stenosis and regurgitation with moderate pulmonary hypertension and dilated right ventricle Hypertension Bedbound and wheelchair-bound known history of broken hip surgical field. Status post permanent pacemaker Plan: Switch Lasix to oral dose Check home oxygen Possible discharge in 24-48 hour Cardiology consult Labs and medication were reviewed.. Continue same treatment. Continue with symptomatic treatment. Resume home medication. Monitor labs and vitals. DVT and GI prophylaxis. Further recommendations as per clinical course of the patient DVT prophylaxis: Subcutaneous heparin GI Prophylaxis: Pepcid Prognosis is guarded
[2023-07-22 20:54] LABS: Glucose,Whole Blood 200 mg/dL (70-110)
[2023-07-23 07:28] LABS: Glucose,Whole Blood 75 mg/dL (70-110)
[2023-07-23] MEDS: INSULIN ASPART (NovoLOG) 100 UNIT/ML VIAL SQ SCH ×4 (07:50→20:52)
[2023-07-23] MEDS: polyethylene glycoL 3350 17 GM POWD.PACK PO SCH (07:54)
[2023-07-23] MEDS: HEPARIN SODIUM,PORCINE 5,000 UNIT/ML 1 ML VIAL SQ SCH ×2 (07:55→20:51)
[2023-07-23] MEDS: carvediloL 3.125 MG TAB PO SCH ×2 (07:55→18:00)
[2023-07-23] MEDS: NYSTATIN 100,000 UNIT/GM POWD 15 GM TOPICAL SCH ×2 (07:55→20:52)
[2023-07-23] MEDS: ASPIRIN 81 MG PO SCH (07:55)
[2023-07-23] MEDS: FUROSEMIDE 40 MG TAB PO SCH ×2 (07:55→15:00)
[2023-07-23] MEDS: FAMOTIDINE 20 MG TAB PO SCH (07:55)
[2023-07-23] MEDS: ACETAMINOPHEN TAB 325 MG TAB PO PRN (08:09)
[2023-07-23 11:45] LABS: Glucose,Whole Blood 181 mg/dL (70-110)
[2023-07-23 17:10] LABS: Glucose,Whole Blood 168 mg/dL (70-110)
[2023-07-23 20:43] LABS: Glucose,Whole Blood 103 mg/dL (70-110)
[2023-07-24 07:10] LABS: Glucose,Whole Blood 74 mg/dL (70-110)
[2023-07-24] MEDS: INSULIN ASPART (NovoLOG) 100 UNIT/ML VIAL SQ SCH ×4 (07:35→21:12)
--- NOTE | 2023-07-24 08:03 | P.PN ---
Subjective This is a pleasant 78 years old female with multiple medical problems, that baseline she is bedbound and wheelchair-bound She comes in because of worsening dyspnea over the last week associated with bilateral leg swelling but denies chest pain She denies any other GI or urinary or neurological symptoms She is not on oxygen at home. Alcohol or illicit drugs. Vitals stable, labs are unremarkable, proBNP 1490. D-dimer mildly elevated but CTA is negative for PE. EKG showing paced rhythm Patient was started on IV Lasix 20 mg to the symptoms and home dose of aspirin. Echocardiogram on 03/11/2023 showing ejection fraction of 55-60% with moderate pulmonary hypertension and elevated right ventricle and moderate mitral stenosis and mitral regurgitation 07/22/2023 patient breathing is improving Her oxygen requirements coming down to 3 L/m Creatinine 1.0 Echocardiogram showed ejection fraction 55-60% with moderate mitral regurgitation Slate Roofer on the case has cleared the patient and switch to oral Lasix Home oxygen assessment and possible discharge in 24-48 hours( 07/23/2023 Patient reason Barter improved Slate Roofer evaluated the patient for discharge and currently she is on oral Lasix However patient is extremely weak, that required 3 people to get her up Patient might benefit from rehab therefore going to consult PT/OT tomorrow as today's weekend Possible discharge in 24-48 hours keeps improvement Objective - Vital Signs Vital signs: Vital Signs Temp 97.3 F L 07/23/23 07:25 Pulse 93 07/23/23 07:25 Resp 18 07/23/23 10:08 BP 103/68 07/23/23 07:25 Pulse Ox 93 L 07/23/23 07:25 FiO2 Intake & Output 07/22/23 07/23/23 07/23/23 18:59 06:59 18:59 Intake Total 240 440 120 Output Total 300 700 Balance -60 -260 120 Intake: Oral 240 440 120 Output: Urine 300 700 Other: Voiding Method External Catheter External Catheter Bedside Commode # Voids 1 1 # Bowel Movements 1 1 1 - Exam GENERAL: The patient is alert and oriented x3, not in any acute distress. Well developed, well nourished. HEENT: Pupils are round and equally reacting to light. EOMI. No scleral icterus. No conjunctival pallor. Normocephalic, atraumatic. No pharyngeal erythema. No thyromegaly. CARDIOVASCULAR: S1 and S2 present. No murmurs, rubs, or gallops. PULMONARY: Chest is clear to auscultation, no wheezing , no crackles. ABDOMEN: Soft, nontender, nondistended, normoactive bowel sounds. No palpable organomegaly. MUSCULOSKELETAL: No joint swelling or deformity. EXTREMITIES: No cyanosis, clubbing, or pedal edema. NEUROLOGICAL: Gross neurological examination did not reveal any focal deficits. SKIN: No rashes. no petechiae. - Labs CBC & Chem 7: 07/20/23 13:58 07/22/23 05:44 Labs: Abnormal Lab Results - Last 24 Hours (Table) 07/22/23 07/22/23 07/22/23 Range/Units 12:35 17:16 20:51 POC Glucose (mg/dL) 120 H 123 H 200 H (70-110) mg/dL Assessment and Plan Assessment: Acute on chronic CHF, diastolic with ejection fraction 55-60% Moderate mitral stenosis and regurgitation with moderate pulmonary hypertension and dilated right ventricle Hypertension Bedbound and wheelchair-bound known history of broken hip surgical field. Status post permanent pacemaker Plan: Switch Lasix to oral dose Check home oxygen Possible discharge in 24-48 hour Cardiology consult PT/OT and social professionals consult Labs and medication were reviewed.. Continue same treatment. Continue with symptomatic treatment. Resume home medication. Monitor labs and vitals. DVT and GI prophylaxis. Further recommendations as per clinical course of the patient DVT prophylaxis: Subcutaneous heparin GI Prophylaxis: Pepcid Prognosis is guarded
[2023-07-24] MEDS: carvediloL 3.125 MG TAB PO SCH ×2 (08:30→17:35)
[2023-07-24] MEDS: HEPARIN SODIUM,PORCINE 5,000 UNIT/ML 1 ML VIAL SQ SCH ×2 (08:54→21:12)
[2023-07-24] MEDS: polyethylene glycoL 3350 17 GM POWD.PACK PO SCH (08:54)
[2023-07-24] MEDS: NYSTATIN 100,000 UNIT/GM POWD 15 GM TOPICAL SCH ×2 (08:55→21:29)
[2023-07-24] MEDS: ASPIRIN 81 MG PO SCH (08:55)
[2023-07-24] MEDS: FUROSEMIDE 40 MG TAB PO SCH ×2 (08:55→15:43)
[2023-07-24] MEDS: FAMOTIDINE 20 MG TAB PO SCH (08:55)
[2023-07-24 12:30] LABS: Glucose,Whole Blood 133 mg/dL (70-110)
--- NOTE | 2023-07-24 13:29 | P.PN ---
Subjective Progress Note Date: 07/24/23 This is a pleasant 78 years old female with multiple medical problems, that baseline she is bedbound and wheelchair-bound She comes in because of worsening dyspnea over the last week associated with bilateral leg swelling but denies chest pain She denies any other GI or urinary or neurological symptoms She is not on oxygen at home. Alcohol or illicit drugs. Vitals stable, labs are unremarkable, proBNP 1490. D-dimer mildly elevated but CTA is negative for PE. EKG showing paced rhythm Patient was started on IV Lasix 20 mg to the symptoms and home dose of aspirin. Echocardiogram on 03/11/2023 showing ejection fraction of 55-60% with moderate pulmonary hypertension and elevated right ventricle and moderate mitral stenosis and mitral regurgitation 07/22/2023 patient breathing is improving Her oxygen requirements coming down to 3 L/m Creatinine 1.0 Echocardiogram showed ejection fraction 55-60% with moderate mitral regurgitation Gas Appliance Installer on the case has cleared the patient and switch to oral Lasix Home oxygen assessment and possible discharge in 24-48 hours( 07/23/2023 Patient reason Pezzer improved Gas Appliance Installer evaluated the patient for discharge and currently she is on oral Lasix However patient is extremely weak, that required 3 people to get her up Patient might benefit from rehab therefore going to consult PT/OT tomorrow as today's weekend Possible discharge in 24-48 hours keeps improvement 07/24. Patient seen and examined. Still has generalized weakness. Denies any shortness of breath. Patient keen to leave the hospital, discussed with her regarding going to rehab. REVIEW OF SYSTEMS: CONSTITUTIONAL: No fever, no malaise,. CARDIOVASCULAR: No chest pain, no palpitations, no syncope. PULMONARY: No shortness of breath, no cough, GASTROINTESTINAL: No diarrhea, no nausea, no vomiting, no abdominal pain. NEUROLOGICAL: No headaches, no weakness, PHYSICAL EXAMINATION: GENERAL: The patient is alert and oriented x3, not in any acute distress. Well developed, well nourished. HEENT: Pupils are round and equally reacting to light. EOMI. No scleral icterus. No conjunctival pallor. Normocephalic, atraumatic. No pharyngeal erythema. No thyromegaly. CARDIOVASCULAR: S1 and S2 present. No murmurs, rubs, or gallops. PULMONARY: Diminished breath sounds at the bases bilaterally, no wheezing or crackles. ABDOMEN: Soft, nontender, nondistended, normoactive bowel sounds. No palpable organomegaly. MUSCULOSKELETAL: No joint swelling or deformity. EXTREMITIES: No cyanosis, clubbing, or pedal edema. NEUROLOGICAL: Gross neurological examination did not reveal any focal deficits. SKIN: No rashes. Assessment and plan Acute on chronic CHF, diastolic with ejection fraction 55-60% Moderate mitral stenosis and regurgitation with moderate pulmonary hypertension and dilated right ventricle Hypertension Bedbound and wheelchair-bound known history of broken hip surgical field. Status post permanent pacemaker Monitor vital signs Monitor CBC Monitor CMP Continue telemetry monitoring Encourage use of incentive spirometer Strict I's and O's, daily weights, continue Lasix In regards to hypertension continue Coreg PT and OT following, case management consulted for placementse of the patient Dictation was produced using [employer] dictation software. please excuse any grammatical, word or spelling errors. Objective - Vital Signs Vital signs: Vital Signs Temp 97.6 F 07/24/23 07:05 Pulse 75 07/24/23 07:05 Resp 16 07/24/23 07:05 BP 96/65 07/24/23 07:05 Pulse Ox 95 07/24/23 07:05 FiO2 Intake & Output 07/23/23 07/24/23 07/24/23 18:59 06:59 18:59 Intake Total 120 Output Total 600 Balance 120 -600 Weight 63 kg Intake: Oral 120 Output: Urine 600 Other: Voiding Method Bedside Commode Bedside Commode Bedside Commode External Catheter External Catheter # Voids 1 1 # Bowel Movements 1 - Labs CBC & Chem 7: 07/20/23 13:58 07/22/23 05:44 Labs: Abnormal Lab Results - Last 24 Hours (Table) 07/23/23 07/23/23 Range/Units 11:44 17:09 POC Glucose (mg/dL) 181 H 168 H (70-110) mg/dL
[2023-07-24 17:07] LABS: Glucose,Whole Blood 154 mg/dL (70-110)
--- NOTE | 2023-07-24 19:07 | CDI ---
Documentation Clarification Form Date: 07/24/2023 06:40:38 PM From: Lizabeth Blake RN CCDS Phone: [phone] Admit Date: 07/21/2023 10:05:00 AM Patient Name: Princess Pierre Visit Number: [id number] Discharge Date: ATTENTION: The Clinical Documentation Specialists (CDI) and [facility] Coding Staff appreciate your assistance in clarifying documentation. Please respond to the clarification below the line at the bottom and electronically sign. The CDI & [facility] Coding staff will review the response and follow-up if needed. Please note: Queries are made part of the Legal Health Record. If you have any questions, please contact the author of this message via ITS. Dr. Manoj De Leon Your patient is receiving the following: Oxygen via nasal cannula, 07/20 07/24. Please clarify what condition/diagnosis is being treated. History/Risk Factors: 78-year-old female presents to the ED with worsening dyspnea over the last week associated with bilateral leg swelling but denies chest pain. Medical History: Heart failure, DM and HTN. 07/21, H&P. Clinical indicators: 07/24, Medicine note: She is not on oxygen at home. 07/20, VSS: B/P 114/59; HR 67; Temp 95.7 F Rectal; RR 20; SpO2 97% 2L nc 07/20, Pulse Ox 95% 6L nc; 07/20 Pulse Ox 96% 6L nc; 07/21 Pulse Ox 98% 2L nc; 07/21 Pulse Ox 95% 5L nc; 07/23 SpO2 94% 3L nc; 07/24 SpO2 98% 2L nc 07/21, Cardiology note, Lung assessment: Decreased air entry. 07/22 -07/24, Medicine note, Lung assessment: Chest is clear to auscultation. Treatment: Oxygen via nasal cannula 2L 6L What diagnosis are you treating with Oxygen? [ x ] Acute Respiratory Failure [ ] No additional diagnosis [ ] Other, please specify [ ] Unable to determine (Template Last Reviewed: October 2020) JIGNESH
[2023-07-24 20:13] LABS: Glucose,Whole Blood 154 mg/dL (70-110)
[2023-07-24] MEDS: ACETAMINOPHEN TAB 325 MG TAB PO PRN (21:11)
[2023-07-25 07:34] LABS: Glucose,Whole Blood 79 mg/dL (70-110)
[2023-07-25] MEDS: INSULIN ASPART (NovoLOG) 100 UNIT/ML VIAL SQ SCH ×4 (08:55→20:39)
[2023-07-25] MEDS: polyethylene glycoL 3350 17 GM POWD.PACK PO SCH (08:55)
[2023-07-25] MEDS: FUROSEMIDE 40 MG TAB PO SCH ×2 (08:55→15:35)
[2023-07-25] MEDS: HEPARIN SODIUM,PORCINE 5,000 UNIT/ML 1 ML VIAL SQ SCH ×2 (08:55→21:21)
[2023-07-25] MEDS: FAMOTIDINE 20 MG TAB PO SCH (08:55)
[2023-07-25] MEDS: carvediloL 3.125 MG TAB PO SCH ×2 (08:55→18:17)
[2023-07-25] MEDS: ASPIRIN 81 MG PO SCH (08:55)
[2023-07-25] MEDS: NYSTATIN 100,000 UNIT/GM POWD 15 GM TOPICAL SCH ×2 (08:56→21:23)
[2023-07-25 09:07] LABS: Basophils # (A) 0.05 X 10*3/uL (0.00-0.10); Basophils % (A) 1.4 %; Eosinophils # (A) 0.28 X 10*3/uL (0.04-0.35); Eosinophils % (A) 7.7 %; HCT 38.6 % (37.2-46.3); HGB 12.2 g/dL (12.0-15.0); Lymphocytes % (A) 30.3 %; MCH 28.2 pg (27.0-32.0); MCHC 31.6 g/dL (32.0-37.0); MCV 89.4 FL (80.0-97.0); Mean Platelet Volume 10.5 FL (9.5-12.2); NRBC Per 100 WBC 0 X 10*3/uL (0.00-0.01); Neutrophils # (A) 1.79 X 10*3/uL (1.80-7.70); Neutrophils % (A) 49.3 %; Platelet Count 198 X 10*3/uL (140-440); RBC 4.32 X 10*6/uL (4.10-5.20); RDW 19.2 % (11.5-14.5); WBC 3.63 X 10*3/uL (4.50-10.00)
[2023-07-25 09:34] LABS: BUN/Creat Ratio 28.23 Ratio (12.00-20.00); Blood Urea Nitrogen 36.7 mg/dL (9.0-27.0); Calcium 9.8 mg/dL (8.7-10.3); Carbon Dioxide 37.5 mmol/L (21.6-31.8); Chloride 94 mmol/L (96-109); Glucose 78 mg/dL (70-110); Potassium 4.5 mmol/L (3.5-5.5); Sodium 142 mmol/L (135-145)
[2023-07-25 12:14] LABS: Glucose,Whole Blood 130 mg/dL (70-110)
[2023-07-25 12:21] VITALS: BMI 27.9
--- NOTE | 2023-07-25 12:51 | P.PN ---
Subjective Progress Note Date: 07/25/23 This is a pleasant 78 years old female with multiple medical problems, that baseline she is bedbound and wheelchair-bound She comes in because of worsening dyspnea over the last week associated with bilateral leg swelling but denies chest pain She denies any other GI or urinary or neurological symptoms She is not on oxygen at home. Alcohol or illicit drugs. Vitals stable, labs are unremarkable, proBNP 1490. D-dimer mildly elevated but CTA is negative for PE. EKG showing paced rhythm Patient was started on IV Lasix 20 mg to the symptoms and home dose of aspirin. Echocardiogram on 03/11/2023 showing ejection fraction of 55-60% with moderate pulmonary hypertension and elevated right ventricle and moderate mitral stenosis and mitral regurgitation 07/22/2023 patient breathing is improving Her oxygen requirements coming down to 3 L/m Creatinine 1.0 Echocardiogram showed ejection fraction 55-60% with moderate mitral regurgitation Bonded Strand Operator on the case has cleared the patient and switch to oral Lasix Home oxygen assessment and possible discharge in 24-48 hours( 07/23/2023 Patient reason Pezzer improved Bonded Strand Operator evaluated the patient for discharge and currently she is on oral Lasix However patient is extremely weak, that required 3 people to get her up Patient might benefit from rehab therefore going to consult PT/OT tomorrow as today's weekend Possible discharge in 24-48 hours keeps improvement 07/24. Patient seen and examined. Still has generalized weakness. Denies any shortness of breath. Patient keen to leave the hospital, discussed with her regarding going to rehab. 07/25 patient seen and examined. Denies any shortness of breath. Laying Comfortably in the bed. Vital signs stable. No acute issues overnight REVIEW OF SYSTEMS: CONSTITUTIONAL: No fever, no malaise,. CARDIOVASCULAR: No chest pain, no palpitations, no syncope. PULMONARY: No shortness of breath, no cough, GASTROINTESTINAL: No diarrhea, no nausea, no vomiting, no abdominal pain. NEUROLOGICAL: No headaches, no weakness, PHYSICAL EXAMINATION: GENERAL: The patient is alert and oriented x3, not in any acute distress. Well developed, well nourished. HEENT: Pupils are round and equally reacting to light. EOMI. No scleral icterus. No conjunctival pallor. Normocephalic, atraumatic. No pharyngeal erythema. No thyromegaly. CARDIOVASCULAR: S1 and S2 present. No murmurs, rubs, or gallops. PULMONARY: Diminished breath sounds at the bases bilaterally, no wheezing or crackles. ABDOMEN: Soft, nontender, nondistended, normoactive bowel sounds. No palpable organomegaly. MUSCULOSKELETAL: No joint swelling or deformity. EXTREMITIES: No cyanosis, clubbing, or pedal edema. NEUROLOGICAL: Gross neurological examination did not reveal any focal deficits. SKIN: No rashes. Assessment and plan Acute on chronic CHF, diastolic with ejection fraction 55-60% Moderate mitral stenosis and regurgitation with moderate pulmonary hypertension and dilated right ventricle Hypertension Bedbound and wheelchair-bound known history of broken hip surgical field. Status post permanent pacemaker Monitor vital signs Monitor CBC Monitor CMP Continue telemetry monitoring Encourage use of incentive spirometer Strict I's and O's, daily weights, continue Lasix In regards to hypertension continue Coreg PT and OT following, case management consulted for placementse of the patient Dictation was produced using [employer] dictation software. please excuse any grammatical, word or spelling errors. Objective - Vital Signs Vital signs: Vital Signs Temp 98.0 F 07/25/23 07:42 Pulse 71 07/25/23 08:54 Resp 18 07/25/23 07:42 BP 93/65 07/25/23 08:54 Pulse Ox 93 L 07/25/23 07:42 FiO2 Intake & Output 07/24/23 07/25/23 07/25/23 18:59 06:59 18:59 Intake Total 240 420 Output Total 400 Balance -160 420 Weight 73.799 kg Intake: Oral 240 420 Output: Urine 400 Other: Voiding Method Bedside Commode External Catheter External Catheter - Labs CBC & Chem 7: 07/25/23 06:05 07/25/23 06:05 Labs: Abnormal Lab Results - Last 24 Hours (Table) 07/24/23 07/24/23 07/25/23 Range/Units 17:06 20:06 06:05 WBC 3.63 L (4.50-10.00) X 10*3/uL MCHC 31.6 L (32.0-37.0) g/dL RDW 19.2 H (11.5-14.5) % Neutrophils # 1.79 L (1.80-7.70) X 10*3/uL Chloride (96-109) mmol/L Carbon Dioxide (21.6-31.8) mmol/L BUN (9.0-27.0) mg/dL Est GFR (CKD-EPI) (>=60) BUN/Creatinine Ratio (12.00-20.00) Ratio POC Glucose (mg/dL) 154 H 154 H (70-110) mg/dL 07/25/23 07/25/23 Range/Units 06:05 12:12 WBC (4.50-10.00) X 10*3/uL MCHC (32.0-37.0) g/dL RDW (11.5-14.5) % Neutrophils # (1.80-7.70) X 10*3/uL Chloride 94 L (96-109) mmol/L Carbon Dioxide 37.5 H (21.6-31.8) mmol/L BUN 36.7 H (9.0-27.0) mg/dL Est GFR (CKD-EPI) 42 L (>=60) BUN/Creatinine Ratio 28.23 H (12.00-20.00) Ratio POC Glucose (mg/dL) 130 H (70-110) mg/dL
[2023-07-25 17:33] LABS: Glucose,Whole Blood 220 mg/dL (70-110)
--- NOTE | 2023-07-25 17:49 | CDI ---
Documentation Clarification Form Date: 07/25/2023 05:17:02 PM From: Lizabeth Blake RN CCDS Phone: [phone] Admit Date: 07/21/2023 10:05:00 AM Patient Name: Princess Pierre Visit Number: [id number] Discharge Date: ATTENTION: The Clinical Documentation Specialists (CDI) and [facility] Coding Staff appreciate your assistance in clarifying documentation. Please respond to the clarification below the line at the bottom and electronically sign. The CDI & [facility] Coding staff will review the response and follow-up if needed. Please note: Queries are made part of the Legal Health Record. If you have any questions, please contact the author of this message via ITS. Dr. Manoj De Leon In Nursing assessment, 07/21, Pressure ulcers are documented Coccyx stage 3, Right Hip stage 2, Right Heel stage 2 by Nursing. Based on this information and the findings below, is there an additional diagnosis that is clinically appropriate for this patient? History/Risk Factors:History/Risk Factors: 78-year-old female presented with worsening dyspnea over the last week with bilateral leg swelling. Medical history: Bed and wheelchair bound, CHF, DM and HTN. 07/21, H&P. Clinical Indicators: Location: Coccyx Stage 3 Wound description: Length 1cm Width 1cm Depth 0.4cm Granulation pale pink. Necrosis type: Adherent slough, Danielle Wound: Moist, Arely Wound color: Erythema Treatment: Turn Q2HR, Foam Border, Absorbent pad, Hourly rounding Is there an additional diagnosis that is clinically appropriate for this patient? [ x ] Coccyx Pressure Ulcer Stage 3 POA [ ] Other condition, please specify [ ] Unable to determine Clinical Indicators: Location: Right Hip Stage 2 Wound description: Length 1.5cm Width 0.8cm Depth 0.2; Granulation quality: pale pink; Necorsis type: Adherent slough; Rina wound: Dry/ Scaly Treatment: Turn Q2HR, Foam with Border, Absorbent pad, Hourly rounding Is there an additional diagnosis that is clinically appropriate for this patient? [ ] Right Hip Pressure Ulcer Stage 2 POA [ ] Other condition, please specify [ ] Unable to determine Clinical Indicators: Location: Right Heel Stage 2 Wound description: Length 1.5cm; Width 2.0cm; Depth 0.1cm; Granulation Quality: [place],pale; Rina wound texture: Callus; Rina wound Moisture: Dry/Scaly; Rina Wound Color: Erythema; Treatment: Float heels, Foam with Border, Hourly rounding Is there an additional diagnosis that is clinically appropriate for this patient? [ ] Right Heel Pressure Ulcer Stage 2 POA [ ] Other condition, please specify [ ] Unable to determine Clinical Definitions: Stage 1 Pressure Ulcer: intact skin, non-blanching redness of local area Stage 2 Pressure Ulcer: Partial thickness, loss of dermis, pink wound bed Stage 3 Pressure Ulcer: Full thickness tissue loss Stage 4 Pressure Ulcer: Full thickness tissue loss with exposed bone, tendon, or muscle. Unstageable pressure ulcer: Full thickness tissue loss in which the base of the ulcer is covered by slough (yellow, uriarte, ramirez, green or brown) and/or eschar (uriarte, brown or black) in the wound bed. (Template Last Revised: November 2020) MTDD
[2023-07-25 20:22] LABS: Glucose,Whole Blood 132 mg/dL (70-110)
[2023-07-26 07:00] LABS: Glucose,Whole Blood 84 mg/dL (70-110)
[2023-07-26] MEDS: INSULIN ASPART (NovoLOG) 100 UNIT/ML VIAL SQ SCH ×4 (08:57→20:37)
[2023-07-26] MEDS: carvediloL 3.125 MG TAB PO SCH ×2 (08:59→17:38)
[2023-07-26] MEDS: NYSTATIN 100,000 UNIT/GM POWD 15 GM TOPICAL SCH ×2 (08:59→20:36)
[2023-07-26] MEDS: FAMOTIDINE 20 MG TAB PO SCH (08:59)
[2023-07-26] MEDS: FUROSEMIDE 40 MG TAB PO SCH ×2 (08:59→16:22)
[2023-07-26] MEDS: ASPIRIN 81 MG PO SCH (08:59)
[2023-07-26] MEDS: HEPARIN SODIUM,PORCINE 5,000 UNIT/ML 1 ML VIAL SQ SCH ×2 (08:59→20:34)
[2023-07-26] MEDS: polyethylene glycoL 3350 17 GM POWD.PACK PO SCH (08:59)
--- NOTE | 2023-07-26 12:37 | P.PN ---
Subjective Progress Note Date: 07/26/23 This is a pleasant 78 years old female with multiple medical problems, that baseline she is bedbound and wheelchair-bound She comes in because of worsening dyspnea over the last week associated with bilateral leg swelling but denies chest pain She denies any other GI or urinary or neurological symptoms She is not on oxygen at home. Alcohol or illicit drugs. Vitals stable, labs are unremarkable, proBNP 1490. D-dimer mildly elevated but CTA is negative for PE. EKG showing paced rhythm Patient was started on IV Lasix 20 mg to the symptoms and home dose of aspirin. Echocardiogram on 03/11/2023 showing ejection fraction of 55-60% with moderate pulmonary hypertension and elevated right ventricle and moderate mitral stenosis and mitral regurgitation 07/22/2023 patient breathing is improving Her oxygen requirements coming down to 3 L/m Creatinine 1.0 Echocardiogram showed ejection fraction 55-60% with moderate mitral regurgitation Cloth Brushing And Sueding Supervisor on the case has cleared the patient and switch to oral Lasix Home oxygen assessment and possible discharge in 24-48 hours( 07/23/2023 Patient reason Pezzer improved Cloth Brushing And Sueding Supervisor evaluated the patient for discharge and currently she is on oral Lasix However patient is extremely weak, that required 3 people to get her up Patient might benefit from rehab therefore going to consult PT/OT tomorrow as today's weekend Possible discharge in 24-48 hours keeps improvement 07/24. Patient seen and examined. Still has generalized weakness. Denies any shortness of breath. Patient keen to leave the hospital, discussed with her regarding going to rehab. 07/25 patient seen and examined. Denies any shortness of breath. Laying Comfortably in the bed. Vital signs stable. No acute issues overnight 07/26. Patient seen and examined. No acute issues overnight. REVIEW OF SYSTEMS: CONSTITUTIONAL: No fever, no malaise,. CARDIOVASCULAR: No chest pain, no palpitations, no syncope. PULMONARY: No shortness of breath, no cough, GASTROINTESTINAL: No diarrhea, no nausea, no vomiting, no abdominal pain. NEUROLOGICAL: No headaches, no weakness, PHYSICAL EXAMINATION: GENERAL: The patient is alert and oriented x3, not in any acute distress. Chronically ill-looking HEENT: Pupils are round and equally reacting to light. EOMI. No scleral icterus. No conjunctival pallor. Normocephalic, atraumatic. No pharyngeal erythema. No t hyromegaly. CARDIOVASCULAR: S1 and S2 present. No murmurs, rubs, or gallops. PULMONARY: Diminished breath sounds at the bases bilaterally, no wheezing or crackles. ABDOMEN: Soft, nontender, nondistended, normoactive bowel sounds. No palpable organomegaly. MUSCULOSKELETAL: No joint swelling or deformity. EXTREMITIES: No cyanosis, clubbing, or pedal edema. NEUROLOGICAL: Gross neurological examination did not reveal any focal deficits. SKIN: No rashes. Assessment and plan Acute on chronic CHF, diastolic with ejection fraction 55-60% Moderate mitral stenosis and regurgitation with moderate pulmonary hypertension and dilated right ventricle Hypertension Bedbound and wheelchair-bound known history of broken hip surgical field. Status post permanent pacemaker Monitor vital signs Monitor CBC Monitor CMP Continue telemetry monitoring Encourage use of incentive spirometer Strict I's and O's, daily weights, continue Lasix In regards to hypertension continue Coreg PT and OT following, insurance denied STR, may be looking for alternate long- term care placement Dictation was produced using [employer] dictation software. please excuse any grammatical, word or spelling errors. Objective - Vital Signs Vital signs: Vital Signs Temp 98.1 F 07/26/23 06:55 Pulse 71 07/26/23 06:55 Resp 16 07/26/23 06:55 BP 101/64 07/26/23 06:55 Pulse Ox 94 L 07/26/23 06:55 FiO2 Intake & Output 07/25/23 07/26/23 07/26/23 18:59 06:59 18:59 Intake Total 1260 240 Output Total 800 700 Balance 460 -700 240 Weight 73.799 kg 94.5 kg Intake: Oral 1260 240 Output: Urine 800 700 Other: Voiding Method External Catheter External Catheter - Labs CBC & Chem 7: 07/25/23 06:05 07/25/23 06:05 Labs: Abnormal Lab Results - Last 24 Hours (Table) 07/25/23 07/25/23 Range/Units 17:32 20:20 POC Glucose (mg/dL) 220 H 132 H (70-110) mg/dL
--- NOTE | 2023-07-26 12:59 | CDI ---
Documentation Clarification Form Date: 07/25/2023 05:17:00 PM From: Lizabeth Blake RN CCDS Phone: [phone] Admit Date: 07/21/2023 10:05:00 AM Patient Name: Princess Pierre Visit Number: [id number] Discharge Date: ATTENTION: The Clinical Documentation Specialists (CDI) and [facility] Coding Staff appreciate your assistance in clarifying documentation. Please respond to the clarification below the line at the bottom and electronically sign. The CDI & [facility] Coding staff will review the response and follow-up if needed. Please note: Queries are made part of the Legal Health Record. If you have any questions, please contact the author of this message via ITS. Dr. Manoj De Leon In Nursing assessment, 07/21, Pressure ulcers are documented Right Hip stage 2 and Right Heel stage 2 by Nursing. Based on this information and the findings below, is there an additional diagnosis that is clinically appropriate for this patient? History/Risk Factors: 78-year-old female presented with worsening dyspnea over the last week with bilateral leg swelling. Medical history: Bed and wheelchair bound, CHF, DM and HTN. 07/21, H&P. Clinical Indicators: Location: Right Hip Stage 2 Wound description: Length 1.5cm Width 0.8cm Depth 0.2; Granulation quality: pale pink; Necorsis type: Adherent slough; Rina wound: Dry/Scaly Treatment: Turn Q2HR, Foam with Border, Absorbent pad, Hourly rounding Is there an additional diagnosis that is clinically appropriate for this patient? [ x] Right Hip Pressure Ulcer Stage 2 POA [ ] Other condition, please specify [ ] Unable to determine Clinical Indicators: Location: Right Heel Stage 2 Wound description: Length 1.5cm; Width 2.0cm; Depth 0.1cm; Granulation Quality: [place],pale; Rina wound texture: Callus; Rnia wound Moisture: Dry/Scaly; Rina Wound Color: Erythema; Treatment: Float heels, Foam with Border, Hourly rounding Is there an additional diagnosis that is clinically appropriate for this patient? [ x] Right Heel Pressure Ulcer Stage 2 POA [ ] Other condition, please specify [ ] Unable to determine Clinical Definitions: Stage 1 Pressure Ulcer: intact skin, non-blanching redness of local area Stage 2 Pressure Ulcer: Partial thickness, loss of dermis, pink wound bed Stage 3 Pressure Ulcer: Full thickness tissue loss Stage 4 Pressure Ulcer: Full thickness tissue loss with exposed bone, tendon, or muscle. Unstageable pressure ulcer: Full thickness tissue loss in which the base of the ulcer is covered by slough (yellow, uriarte, ramirez, green or brown) and/or eschar (uriarte, brown or black) in the wound bed. (Template Last Revised: November 2020) MTDD
[2023-07-26 13:03] LABS: Glucose,Whole Blood 184 mg/dL (70-110)
[2023-07-26 17:30] LABS: Glucose,Whole Blood 189 mg/dL (70-110)
[2023-07-26 20:20] LABS: Glucose,Whole Blood 98 mg/dL (70-110)
[2023-07-27 07:44] LABS: Glucose,Whole Blood 97 mg/dL (70-110)
[2023-07-27] MEDS: INSULIN ASPART (NovoLOG) 100 UNIT/ML VIAL SQ SCH ×4 (08:53→20:07)
[2023-07-27] MEDS: polyethylene glycoL 3350 17 GM POWD.PACK PO SCH (09:57)
[2023-07-27] MEDS: ASPIRIN 81 MG PO SCH (09:57)
[2023-07-27] MEDS: FAMOTIDINE 20 MG TAB PO SCH (09:57)
[2023-07-27] MEDS: HEPARIN SODIUM,PORCINE 5,000 UNIT/ML 1 ML VIAL SQ SCH ×2 (09:57→20:20)
[2023-07-27] MEDS: carvediloL 3.125 MG TAB PO SCH ×2 (09:57→18:18)
[2023-07-27] MEDS: FUROSEMIDE 40 MG TAB PO SCH ×2 (09:57→18:18)
[2023-07-27 12:32] LABS: Glucose,Whole Blood 162 mg/dL (70-110)
--- NOTE | 2023-07-27 14:17 | P.PN ---
Subjective Progress Note Date: 07/27/23 This is a pleasant 78 years old female with multiple medical problems, that baseline she is bedbound and wheelchair-bound She comes in because of worsening dyspnea over the last week associated with bilateral leg swelling but denies chest pain She denies any other GI or urinary or neurological symptoms She is not on oxygen at home. Alcohol or illicit drugs. Vitals stable, labs are unremarkable, proBNP 1490. D-dimer mildly elevated but CTA is negative for PE. EKG showing paced rhythm Patient was started on IV Lasix 20 mg to the symptoms and home dose of aspirin. Echocardiogram on 03/11/2023 showing ejection fraction of 55-60% with moderate pulmonary hypertension and elevated right ventricle and moderate mitral stenosis and mitral regurgitation 07/22/2023 patient breathing is improving Her oxygen requirements coming down to 3 L/m Creatinine 1.0 Echocardiogram showed ejection fraction 55-60% with moderate mitral regurgitation Food And Nutrition Supervisor on the case has cleared the patient and switch to oral Lasix Home oxygen assessment and possible discharge in 24-48 hours( 07/23/2023 Patient reason [place] improved Food And Nutrition Supervisor evaluated the patient for discharge and currently she is on oral Lasix However patient is extremely weak, that required 3 people to get her up Patient might benefit from rehab therefore going to consult PT/OT tomorrow as today's weekend Possible discharge in 24-48 hours keeps improvement 07/24. Patient seen and examined. Still has generalized weakness. Denies any shortness of breath. Patient keen to leave the hospital, discussed with her regarding going to rehab. 07/25 patient seen and examined. Denies any shortness of breath. Laying Comfortably in the bed. Vital signs stable. No acute issues overnight 07/26. Patient seen and examined. No acute issues overnight. 07/27. Patient seen and examined. Denies any lightheadedness or dizziness. Denies any palpitations. Vital signs stable REVIEW OF SYSTEMS: CONSTITUTIONAL: No fever, no malaise,. CARDIOVASCULAR: No chest pain, no palpitations, no syncope. PULMONARY: No shortness of breath, no cough, GASTROINTESTINAL: No diarrhea, no nausea, no vomiting, no abdominal pain. NEUROLOGICAL: No headaches, no weakness, PHYSICAL EXAMINATION: GENERAL: The patient is alert and oriented x3, not in any acute distress. Chronically ill-looking HEENT: Pupils are round and equally reacting to light. EOMI. No scleral icterus. No conjunctival pallor. Normocephalic, atraumatic. No pharyngeal erythema. No thyromegaly. CARDIOVASCULAR: S1 and S2 present. No murmurs, rubs, or gallops. PULMONARY: Diminished breath sounds at the bases bilaterally, no wheezing or crackles. ABDOMEN: Soft, nontender, nondistended, normoactive bowel sounds. No palpable organomegaly. MUSCULOSKELETAL: No joint swelling or deformity. EXTREMITIES: No cyanosis, clubbing, or pedal edema. NEUROLOGICAL: Gross neurological examination did not reveal any focal deficits. SKIN: No rashes. Assessment and plan Acute on chronic CHF, diastolic with ejection fraction 55-60% Moderate mitral stenosis and regurgitation with moderate pulmonary hypertension and dilated right ventricle Hypertension Bedbound and wheelchair-bound known history of broken hip surgical field. Status post permanent pacemaker Monitor vital signs Monitor CBC Monitor CMP Continue telemetry monitoring Encourage use of incentive spirometer Strict I's and O's, daily weights, continue Lasix In regards to hypertension continue Coreg PT and OT following, insurance denied STR, patient has appealed against the denial, results of appeal pending Dictation was produced using [employer] dictation software. please excuse any grammatical, word or spelling errors. Objective - Vital Signs Vital signs: Vital Signs Temp 97.6 F 07/27/23 07:40 Pulse 86 07/27/23 07:40 Resp 16 07/27/23 07:40 BP 101/65 07/27/23 07:40 Pulse Ox 97 07/27/23 08:32 FiO2 Intake & Output 07/26/23 07/27/23 07/27/23 18:59 06:59 18:59 Intake Total 400 Output Total 200 701 Balance 200 -701 Intake: Oral 400 Output: Urine 200 700 Stool 1 Other: Voiding Method External Catheter External Catheter - Labs CBC & Chem 7: 07/25/23 06:05 07/25/23 06:05 Labs: Abnormal Lab Results - Last 24 Hours (Table) 07/26/23 07/26/23 Range/Units 12:20 17:28 POC Glucose (mg/dL) 184 H 189 H (70-110) mg/dL
[2023-07-27] MEDS: NYSTATIN 100,000 UNIT/GM POWD 15 GM TOPICAL SCH ×2 (15:10→20:20)
[2023-07-27 17:36] LABS: Glucose,Whole Blood 169 mg/dL (70-110)
[2023-07-27 19:53] LABS: Glucose,Whole Blood 116 mg/dL (70-110)
[2023-07-28 07:46] LABS: Glucose,Whole Blood 99 mg/dL (70-110)
[2023-07-28] MEDS: ASPIRIN 81 MG PO SCH (08:44)
[2023-07-28] MEDS: HEPARIN SODIUM,PORCINE 5,000 UNIT/ML 1 ML VIAL SQ SCH ×2 (08:44→21:00)
[2023-07-28] MEDS: FUROSEMIDE 40 MG TAB PO SCH ×2 (08:44→17:35)
[2023-07-28] MEDS: carvediloL 3.125 MG TAB PO SCH ×2 (08:44→17:35)
[2023-07-28] MEDS: INSULIN ASPART (NovoLOG) 100 UNIT/ML VIAL SQ SCH ×4 (08:44→21:00)
[2023-07-28] MEDS: FAMOTIDINE 20 MG TAB PO SCH (08:44)
[2023-07-28] MEDS: polyethylene glycoL 3350 17 GM POWD.PACK PO SCH (08:45)
[2023-07-28 12:02] LABS: Glucose,Whole Blood 215 mg/dL (70-110)
[2023-07-28] MEDS: NYSTATIN 100,000 UNIT/GM POWD 15 GM TOPICAL SCH ×2 (13:36→21:00)
[2023-07-28 17:29] LABS: Glucose,Whole Blood 150 mg/dL (70-110)
[2023-07-28 19:59] LABS: Glucose,Whole Blood 173 mg/dL (70-110)
[2023-07-29 07:20] LABS: Glucose,Whole Blood 89 mg/dL (70-110)
[2023-07-29] MEDS: INSULIN ASPART (NovoLOG) 100 UNIT/ML VIAL SQ SCH ×4 (09:20→21:17)
[2023-07-29] MEDS: FAMOTIDINE 20 MG TAB PO SCH (09:55)
[2023-07-29] MEDS: ASPIRIN 81 MG PO SCH (09:55)
[2023-07-29] MEDS: HEPARIN SODIUM,PORCINE 5,000 UNIT/ML 1 ML VIAL SQ SCH ×2 (09:55→22:28)
[2023-07-29] MEDS: FUROSEMIDE 40 MG TAB PO SCH ×2 (09:55→17:29)
[2023-07-29] MEDS: carvediloL 3.125 MG TAB PO SCH ×2 (09:55→17:28)
[2023-07-29] MEDS: polyethylene glycoL 3350 17 GM POWD.PACK PO SCH (09:57)
[2023-07-29] MEDS: NYSTATIN 100,000 UNIT/GM POWD 15 GM TOPICAL SCH ×2 (09:57→22:28)
[2023-07-29 12:34] LABS: Glucose,Whole Blood 229 mg/dL (70-110)
--- NOTE | 2023-07-29 15:01 | P.PN ---
Subjective Progress Note Date: 07/28/23 This is a pleasant 78 years old female with multiple medical problems, that baseline she is bedbound and wheelchair-bound She comes in because of worsening dyspnea over the last week associated with bilateral leg swelling but denies chest pain She denies any other GI or urinary or neurological symptoms She is not on oxygen at home. Alcohol or illicit drugs. Vitals stable, labs are unremarkable, proBNP 1490. D-dimer mildly elevated but CTA is negative for PE. EKG showing paced rhythm Patient was started on IV Lasix 20 mg to the symptoms and home dose of aspirin. Echocardiogram on 03/11/2023 showing ejection fraction of 55-60% with moderate pulmonary hypertension and elevated right ventricle and moderate mitral stenosis and mitral regurgitation 07/22/2023 patient breathing is improving Her oxygen requirements coming down to 3 L/m Creatinine 1.0 Echocardiogram showed ejection fraction 55-60% with moderate mitral regurgitation Auto Service Mechanic on the case has cleared the patient and switch to oral Lasix Home oxygen assessment and possible discharge in 24-48 hours( 07/23/2023 Auto Service Mechanic evaluated the patient for discharge and currently she is on oral Lasix However patient is extremely weak, that required 3 people to get her up Patient might benefit from rehab therefore going to consult PT/OT tomorrow as today's weekend Possible discharge in 24-48 hours keeps improvement 07/24. Patient seen and examined. Still has generalized weakness. Denies any shortness of breath. Patient keen to leave the hospital, discussed with her regarding going to rehab. 07/25 patient seen and examined. Denies any shortness of breath. Laying Comfortably in the bed. Vital signs stable. No acute issues overnight 07/26. Patient seen and examined. No acute issues overnight. 07/27. Patient seen and examined. Denies any lightheadedness or dizziness. Denies any palpitations. Vital signs stable 07/28. Patient seen and examined REVIEW OF SYSTEMS: CONSTITUTIONAL: No fever, no malaise,. CARDIOVASCULAR: No chest pain, no palpitations, no syncope. PULMONARY: No shortness of breath, no cough, GASTROINTESTINAL: No diarrhea, no nausea, no vomiting, no abdominal pain. NEUROLOGICAL: No headaches, no weakness, PHYSICAL EXAMINATION: GENERAL: The patient is alert and oriented x3, not in any acute distress. Chronically ill-looking HEENT: Pupils are round and equally reacting to light. EOMI. No scleral icterus. No conjunctival pallor. Normocephalic, atraumatic. No pharyngeal erythema. No thyromegaly. CARDIOVASCULAR: S1 and S2 present. No murmurs, rubs, or gallops. PULMONARY: Diminished breath sounds at the bases bilaterally, no wheezing or crackles. ABDOMEN: Soft, nontender, nondistended, normoactive bowel sounds. No palpable organomegaly. MUSCULOSKELETAL: No joint swelling or deformity. EXTREMITIES: No cyanosis, clubbing, or pedal edema. NEUROLOGICAL: Gross neurological examination did not reveal any focal deficits. SKIN: No rashes. Pressure ulcer on right hip, right heel and coccyx Assessment and plan Acute on chronic CHF, diastolic with ejection fraction 55-60% Moderate mitral stenosis and regurgitation with moderate pulmonary hypertension and dilated right ventricle Hypertension Bedbound and wheelchair-bound known history of broken hip surgical field. Status post permanent pacemaker Right heel pressure ulcer stage II Right hip pressure ulcer stage II Coccyx pressure ulcer stage III Monitor vital signs Monitor CBC Monitor CMP Continue telemetry monitoring Encourage use of incentive spirometer Strict I's and O's, daily weights, continue Lasix In regards to hypertension continue Coreg PT and OT following, insurance denied STR, patient has appealed against the denial, results of appeal pending Dictation was produced using [employer] dictation software. please excuse any grammatical, word or spelling errors. Objective - Vital Signs Vital signs: Vital Signs Temp 97.6 F 07/28/23 07:38 Pulse 72 07/28/23 07:38 Resp 16 07/28/23 07:38 BP 102/62 07/28/23 07:38 Pulse Ox 97 07/28/23 08:42 FiO2 Intake & Output 07/27/23 07/28/23 07/28/23 18:59 06:59 18:59 Intake Total 473 Output Total 300 500 Balance -300 -27 Intake: Oral 473 Output: Urine 300 500 Other: Voiding Method External Catheter External Catheter # Voids 1 # Bowel Movements 1 - Labs CBC & Chem 7: 07/25/23 06:05 07/25/23 06:05 Labs: Abnormal Lab Results - Last 24 Hours (Table) 07/27/23 07/27/23 07/27/23 Range/Units 12:28 17:30 19:49 POC Glucose (mg/dL) 162 H 169 H 116 H (70-110) mg/dL
--- NOTE | 2023-07-29 15:01 | P.PN ---
Subjective Progress Note Date: 07/29/23 This is a pleasant 78 years old female with multiple medical problems, that baseline she is bedbound and wheelchair-bound She comes in because of worsening dyspnea over the last week associated with bilateral leg swelling but denies chest pain She denies any other GI or urinary or neurological symptoms She is not on oxygen at home. Alcohol or illicit drugs. Vitals stable, labs are unremarkable, proBNP 1490. D-dimer mildly elevated but CTA is negative for PE. EKG showing paced rhythm Patient was started on IV Lasix 20 mg to the symptoms and home dose of aspirin. Echocardiogram on 03/11/2023 showing ejection fraction of 55-60% with moderate pulmonary hypertension and elevated right ventricle and moderate mitral stenosis and mitral regurgitation 07/22/2023 patient breathing is improving Her oxygen requirements coming down to 3 L/m Creatinine 1.0 Echocardiogram showed ejection fraction 55-60% with moderate mitral regurgitation Camper Assembler on the case has cleared the patient and switch to oral Lasix Home oxygen assessment and possible discharge in 24-48 hours( 07/23/2023 Camper Assembler evaluated the patient for discharge and currently she is on oral Lasix However patient is extremely weak, that required 3 people to get her up Patient might benefit from rehab therefore going to consult PT/OT tomorrow as today's weekend Possible discharge in 24-48 hours keeps improvement 07/24. Patient seen and examined. Still has generalized weakness. Denies any shortness of breath. Patient keen to leave the hospital, discussed with her regarding going to rehab. 07/25 patient seen and examined. Denies any shortness of breath. Laying Comfortably in the bed. Vital signs stable. No acute issues overnight 07/26. Patient seen and examined. No acute issues overnight. 07/27. Patient seen and examined. Denies any lightheadedness or dizziness. Denies any palpitations. Vital signs stable 07/28. Patient seen and examined. Denies any chest pain or shortness of breath 07/29. Patient seen and examined. Sitting upright in the chair. Had an uneventful night. Denies any lightheadedness or dizziness. Denies any nausea, vomiting abdominal pain. Vital signs stable REVIEW OF SYSTEMS: CONSTITUTIONAL: No fever, no malaise,. CARDIOVASCULAR: No chest pain, no palpitations, no syncope. PULMONARY: No shortness of breath, no cough, GASTROINTESTINAL: No diarrhea, no nausea, no vomiting, no abdominal pain. NEUROLOGICAL: No headaches, no weakness, PHYSICAL EXAMINATION: GENERAL: The patient is alert and oriented x3, not in any acute distress. Chronically ill-looking HEENT: Pupils are round and equally reacting to light. EOMI. No scleral icterus. No conjunctival pallor. Normocephalic, atraumatic. No pharyngeal erythema. No thyromegaly. CARDIOVASCULAR: S1 and S2 present. No murmurs, rubs, or gallops. PULMONARY: Diminished breath sounds at the bases bilaterally, no wheezing or crackles. ABDOMEN: Soft, nontender, nondistended, normoactive bowel sounds. No palpable organomegaly. MUSCULOSKELETAL: No joint swelling or deformity. EXTREMITIES: No cyanosis, clubbing, or pedal edema. NEUROLOGICAL: Gross neurological examination did not reveal any focal deficits. SKIN: No rashes. Pressure ulcer on right hip, right heel and coccyx Assessment and plan Acute on chronic CHF, diastolic with ejection fraction 55-60% Moderate mitral stenosis and regurgitation with moderate pulmonary hypertension and dilated right ventricle Hypertension Bedbound and wheelchair-bound known history of broken hip surgical field. Status post permanent pacemaker Right heel pressure ulcer stage II Right hip pressure ulcer stage II Coccyx pressure ulcer stage III Monitor vital signs Monitor CBC Monitor CMP Continue telemetry monitoring Encourage use of incentive spirometer Strict I's and O's, daily weights, continue Lasix In regards to hypertension continue Coreg PT and OT following, insurance denied STR, patient has appealed against the denial, results of appeal pending Dictation was produced using [employer] dictation software. please excuse any grammatical, word or spelling errors. Objective - Vital Signs Vital signs: Vital Signs Temp 97.6 F 07/29/23 07:10 Pulse 99 07/29/23 07:10 Resp 19 07/29/23 07:10 BP 105/65 07/29/23 07:10 Pulse Ox 91 L 07/29/23 07:52 FiO2 Intake & Output 07/28/23 07/29/23 07/29/23 18:59 06:59 18:59 Intake Total 710 Output Total 850 Balance -140 Weight 71.3 kg Intake: Oral 710 Output: Urine 850 Other: Voiding Method External Catheter External Catheter # Bowel Movements 1 - Labs CBC & Chem 7: 07/25/23 06:05 07/25/23 06:05 Labs: Abnormal Lab Results - Last 24 Hours (Table) 07/28/23 07/28/23 07/28/23 Range/Units 11:53 17:27 19:58 POC Glucose (mg/dL) 215 H 150 H 173 H (70-110) mg/dL
[2023-07-29 17:01] LABS: Glucose,Whole Blood 154 mg/dL (70-110)
[2023-07-29 21:00] LABS: Glucose,Whole Blood 150 mg/dL (70-110)
[2023-07-30 07:44] LABS: Glucose,Whole Blood 112 mg/dL (70-110)
[2023-07-30] MEDS: INSULIN ASPART (NovoLOG) 100 UNIT/ML VIAL SQ SCH ×4 (07:45→21:14)
[2023-07-30] MEDS: ASPIRIN 81 MG PO SCH (08:28)
[2023-07-30] MEDS: carvediloL 3.125 MG TAB PO SCH ×2 (08:28→17:53)
[2023-07-30] MEDS: polyethylene glycoL 3350 17 GM POWD.PACK PO SCH (08:28)
[2023-07-30] MEDS: FAMOTIDINE 20 MG TAB PO SCH (08:28)
[2023-07-30] MEDS: FUROSEMIDE 40 MG TAB PO SCH ×2 (08:28→15:53)
[2023-07-30] MEDS: NYSTATIN 100,000 UNIT/GM POWD 15 GM TOPICAL SCH ×2 (08:28→21:16)
[2023-07-30] MEDS: HEPARIN SODIUM,PORCINE 5,000 UNIT/ML 1 ML VIAL SQ SCH ×2 (08:28→21:14)
[2023-07-30 09:49] LABS: HCT 38.8 % (37.2-46.3); HGB 11.9 g/dL (12.0-15.0); MCH 28.1 pg (27.0-32.0); MCHC 30.7 g/dL (32.0-37.0); MCV 91.7 FL (80.0-97.0); Mean Platelet Volume 10.5 FL (9.5-12.2); NRBC Per 100 WBC 0 X 10*3/uL (0.00-0.01); Platelet Count 219 X 10*3/uL (140-440); RBC 4.23 X 10*6/uL (4.10-5.20); RDW 18.9 % (11.5-14.5)
[2023-07-30 11:13] LABS: ALT 12 U/L (8-44); AST 21 U/L (13-35); Albumin 3.6 g/dL (3.8-4.9); Albumin/Globulin Ratio 1.33 Ratio (1.60-3.17); Alkaline Phosphatase 95 U/L (41-126); BUN/Creat Ratio 37.58 Ratio (12.00-20.00); Blood Urea Nitrogen 45.1 mg/dL (9.0-27.0); Calcium 9.6 mg/dL (8.7-10.3); Carbon Dioxide 40.1 mmol/L (21.6-31.8); Chloride 93 mmol/L (96-109); Globulin 2.7 g/dL (1.6-3.3); Glucose 89 mg/dL (70-110); Sodium 141 mmol/L (135-145); Total Bilirubin 0.9 mg/dL (0.3-1.2); Total Protein 6.3 g/dL (6.2-8.2)
[2023-07-30 12:33] LABS: Glucose,Whole Blood 164 mg/dL (70-110)
--- NOTE | 2023-07-30 13:46 | P.PN ---
Subjective Progress Note Date: 07/30/23 This is a pleasant 78 years old female with multiple medical problems, that baseline she is bedbound and wheelchair-bound She comes in because of worsening dyspnea over the last week associated with bilateral leg swelling but denies chest pain She denies any other GI or urinary or neurological symptoms She is not on oxygen at home. Alcohol or illicit drugs. Vitals stable, labs are unremarkable, proBNP 1490. D-dimer mildly elevated but CTA is negative for PE. EKG showing paced rhythm Patient was started on IV Lasix 20 mg to the symptoms and home dose of aspirin. Echocardiogram on 03/11/2023 showing ejection fraction of 55-60% with moderate pulmonary hypertension and elevated right ventricle and moderate mitral stenosis and mitral regurgitation 07/22/2023 patient breathing is improving Her oxygen requirements coming down to 3 L/m Creatinine 1.0 Echocardiogram showed ejection fraction 55-60% with moderate mitral regurgitation Tail Board Worker on the case has cleared the patient and switch to oral Lasix Home oxygen assessment and possible discharge in 24-48 hours( 07/23/2023 Tail Board Worker evaluated the patient for discharge and currently she is on oral Lasix However patient is extremely weak, that required 3 people to get her up Patient might benefit from rehab therefore going to consult PT/OT tomorrow as today's weekend Possible discharge in 24-48 hours keeps improvement 07/24. Patient seen and examined. Still has generalized weakness. Denies any shortness of breath. Patient keen to leave the hospital, discussed with her regarding going to rehab. 07/25 patient seen and examined. Denies any shortness of breath. Laying Comfortably in the bed. Vital signs stable. No acute issues overnight 07/26. Patient seen and examined. No acute issues overnight. 07/27. Patient seen and examined. Denies any lightheadedness or dizziness. Denies any palpitations. Vital signs stable 07/28. Patient seen and examined. Denies any chest pain or shortness of breath 07/29. Patient seen and examined. Sitting upright in the chair. Had an uneventful night. Denies any lightheadedness or dizziness. Denies any nausea, vomiting abdominal pain. Vital signs stable 07/30. Patient seen and examined. No change in her clinical status. Continues to do well. Denies any shortness of breath. Continues to be weak. REVIEW OF SYSTEMS: CONSTITUTIONAL: No fever, no malaise,. CARDIOVASCULAR: No chest pain, no palpitations, no syncope. PULMONARY: No shortness of breath, no cough, GASTROINTESTINAL: No diarrhea, no nausea, no vomiting, no abdominal pain. NEUROLOGICAL: No headaches, no weakness, PHYSICAL EXAMINATION: GENERAL: The patient is alert and oriented x3, not in any acute distress. Chronically ill-looking HEENT: Pupils are round and equally reacting to light. EOMI. No scleral icterus. No conjunctival pallor. Normocephalic, atraumatic. No pharyngeal erythema. No thyromegaly. CARDIOVASCULAR: S1 and S2 present. No murmurs, rubs, or gallops. PULMONARY: Diminished breath sounds at the bases bilaterally, no wheezing or crackles. ABDOMEN: Soft, nontender, nondistended, normoactive bowel sounds. No palpable organomegaly. MUSCULOSKELETAL: No joint swelling or deformity. EXTREMITIES: No cyanosis, clubbing, or pedal edema. NEUROLOGICAL: Gross neurological examination did not reveal any focal deficits. SKIN: No rashes. Pressure ulcer on right hip, right heel and coccyx Assessment and plan Acute on chronic CHF, diastolic with ejection fraction 55-60% Moderate mitral stenosis and regurgitation with moderate pulmonary hypertension and dilated right ventricle Hypertension Bedbound and wheelchair-bound known history of broken hip surgical field. Status post permanent pacemaker Right heel pressure ulcer stage II Right hip pressure ulcer stage II Coccyx pressure ulcer stage III Monitor vital signs Monitor CBC Monitor CMP Continue telemetry monitoring Encourage use of incentive spirometer Strict I's and O's, daily weights, continue Lasix In regards to hypertension continue Coreg PT and OT following, insurance denied STR, patient has appealed against the denial, results of appeal pending Dictation was produced using [employer] dictation software. please excuse any grammatical, word or spelling errors. Objective - Vital Signs Vital signs: Vital Signs Temp 98.1 F 07/30/23 07:45 Pulse 77 07/30/23 07:45 Resp 18 07/30/23 07:45 BP 118/75 07/30/23 07:45 Pulse Ox 98 07/30/23 07:45 FiO2 Intake & Output 07/29/23 07/30/23 07/30/23 18:59 06:59 18:59 Intake Total 690 Output Total 500 650 Balance 190 -650 Weight 67.9 kg Intake: Oral 690 Output: Urine 500 650 Other: Voiding Method External Catheter External Catheter - Labs CBC & Chem 7: 07/25/23 06:05 07/25/23 06:05 Labs: Abnormal Lab Results - Last 24 Hours (Table) 07/29/23 07/29/23 07/29/23 Range/Units 12:33 16:58 20:58 POC Glucose (mg/dL) 229 H 154 H 150 H (70-110) mg/dL 07/30/23 Range/Units 07:42 POC Glucose (mg/dL) 112 H (70-110) mg/dL
[2023-07-30 17:12] LABS: Glucose,Whole Blood 121 mg/dL (70-110)
[2023-07-30 20:57] LABS: Glucose,Whole Blood 213 mg/dL (70-110)
[2023-07-31 07:28] LABS: Glucose,Whole Blood 96 mg/dL (70-110)
[2023-07-31] MEDS: INSULIN ASPART (NovoLOG) 100 UNIT/ML VIAL SQ SCH (08:13)
[2023-07-31 08:25] VITALS: PULSE 66; RESP 18
[2023-07-31] MEDS: FAMOTIDINE 20 MG TAB PO SCH (09:05)
[2023-07-31] MEDS: FUROSEMIDE 40 MG TAB PO SCH (09:05)
[2023-07-31] MEDS: HEPARIN SODIUM,PORCINE 5,000 UNIT/ML 1 ML VIAL SQ SCH (09:05)
[2023-07-31] MEDS: ASPIRIN 81 MG PO SCH (09:05)
[2023-07-31] MEDS: ACETAMINOPHEN TAB 325 MG TAB PO PRN (09:05)
[2023-07-31] MEDS: carvediloL 3.125 MG TAB PO SCH (09:05)
[2023-07-31] MEDS: polyethylene glycoL 3350 17 GM POWD.PACK PO SCH (09:09)
[2023-07-31] MEDS: NYSTATIN 100,000 UNIT/GM POWD 15 GM TOPICAL SCH (09:10)
--- NOTE | 2023-07-31 12:14 | P.DS ---
Providers Date of admission: 07/21/23 10:05 Expected date of discharge: 07/31/23 Attending physician: Antonio Sharma Consults: 07/20/23 17:59 Consult Physician Routine Consulting Provider: Seb Martinez Consult Reason/Comments: chf Do you want consulting provider notified?: Yes Primary care physician: Kenzie [facility] Course: Discharge diagnoses; Acute on chronic CHF, diastolic with ejection fraction 55-60% Moderate mitral stenosis and regurgitation with moderate pulmonary hypertension and dilated right ventricle Hypertension Bedbound and wheelchair-bound known history of broken hip surgical field. Status post permanent pacemaker Right heel pressure ulcer stage II Right hip pressure ulcer stage II Coccyx pressure ulcer stage III Hospital course; This is a pleasant 78 years old female with multiple medical problems, that baseline she is bedbound and wheelchair-bound She comes in because of worsening dyspnea over the last week associated with bilateral leg swelling but denies chest pain She denies any other GI or urinary or neurological symptoms She is not on oxygen at home. Alcohol or illicit drugs. Vitals stable, labs are unremarkable, proBNP 1490. D-dimer mildly elevated but CTA is negative for PE. EKG showing paced rhythm Patient was started on IV Lasix 20 mg to the symptoms and home dose of aspirin. Echocardiogram on 03/11/2023 showing ejection fraction of 55-60% with moderate pulmonary hypertension and elevated right ventricle and moderate mitral stenosis and mitral regurgitation 07/22/2023 patient breathing is improving Her oxygen requirements coming down to 3 L/m Creatinine 1.0 Echocardiogram showed ejection fraction 55-60% with moderate mitral regurgi tation [employer] Worker on the case has cleared the patient and switch to oral Lasix Home oxygen assessment and possible discharge in 24-48 hours( 07/23/2023 V[employer] Worker evaluated the patient for discharge and currently she is on oral Lasix However patient is extremely weak, that required 3 people to get her up Patient might benefit from rehab therefore going to consult PT/OT tomorrow as today's weekend Possible discharge in 24-48 hours keeps improvement 07/24. Patient seen and examined. Still has generalized weakness. Denies any shortness of breath. Patient keen to leave the hospital, discussed with her regarding going to rehab. 07/25 patient seen and examined. Denies any shortness of breath. Laying Comfortably in the bed. Vital signs stable. No acute issues overnight 07/26. Patient seen and examined. No acute issues overnight. 07/27. Patient seen and examined. Denies any lightheadedness or dizziness. Denies any palpitations. Vital signs stable 07/28. Patient seen and examined. Denies any chest pain or shortness of breath 07/29. Patient seen and examined. Sitting upright in the chair. Had an uneventful night. Denies any lightheadedness or dizziness. Denies any nausea, vomiting abdominal pain. Vital signs stable 07/30. Patient seen and examined. No change in her clinical status. Continues to do well. Denies any shortness of breath. Continues to be weak. 07/31. Patient seen and examined. Patient appeals for rehab was approved. Being discharged to rehab in stable condition. Being discharged on Lasix 40 twice a day. Outpatient follow-up with cardiology PHYSICAL EXAMINATION: GENERAL: The patient is alert and oriented x3, not in any acute distress. Well developed, well nourished. HEENT: Pupils are round and equally reacting to light. EOMI. No scleral icterus. No conjunctival pallor. Normocephalic, atraumatic. No pharyngeal erythema. No thyromegaly. CARDIOVASCULAR: S1 and S2 present. No murmurs, rubs, or gallops. PULMONARY: Chest is clear to auscultation, no wheezing or crackles. ABDOMEN: Soft, nontender, nondistended, normoactive bowel sounds. No palpable organomegaly. MUSCULOSKELETAL: No joint swelling or deformity. EXTREMITIES: No cyanosis, clubbing, or pedal edema. NEUROLOGICAL: Gross neurological examination did not reveal any focal deficits. SKIN: No rashes. Dictation was produced using [employer] dictation software. please excuse any grammatical, word or spelling errors. Patient Condition at Discharge: Good Plan - Discharge Summary Discharge Rx Participant: No New Discharge Prescriptions: New Potassium Chloride ER [K-Dur 10] 10 meq PO BID 30 Days #60 tab Furosemide [Lasix] 40 mg PO BID@0900,1600 30 Days #60 tab Nystatin 100,000 Unit/gm Powd [Mycostatin Powder] 1 applic TOPICAL BID #1 each carvediloL [Coreg] 3.125 mg PO BID-W/MEALS 30 Days #60 tab Continue Aspirin EC [Ecotrin Low Dose] 81 mg PO DAILY@0900 Collagenase [Santyl Ointment] 1 applic TOPICAL HS Multivitamins, Thera [Multivitamin (formulary)] 1 tab PO DAILY@0900 Clotrimazole/Betameth Cream [Lotrisone] 1 applic TOPICAL BID polyethylene glycoL 3350 [Miralax] 17 gm PO DAILY@0900 Acetaminophen Tab [Tylenol] 650 mg PO Q6HR PRN tab PRN Reason: Mild Pain Or Fever > 100.5 Amino Acids/Protein Hydrolys [Pro-Stat Awc Liquid] 30 ml PO DAILY@0900 Lactose-Reduced Food [Ensure Plus] 1 can PO DAILY@0900 Discontinued Furosemide [Lasix] 20 mg PO BID@0600,1300 Clotrimazole/Betameth Cream [Lotrisone] 1 applic TOPICAL DAILY carvediloL [Coreg] 6.25 mg PO BID@0900,2100 Discharge Medication List Aspirin EC [Ecotrin Low Dose] 81 mg PO DAILY@0900 03/11/23 [History] Collagenase [Santyl Ointment] 1 applic TOPICAL HS 03/11/23 [History] Multivitamins, Thera [Multivitamin (formulary)] 1 tab PO DAILY@0900 03/11/23 [ History] Acetaminophen Tab [Tylenol] 650 mg PO Q6HR PRN tab 06/28/23 [Rx] Amino Acids/Protein Hydrolys [Pro-Stat Awc Liquid] 30 ml PO DAILY@0900 07/20/23 [History] Clotrimazole/Betameth Cream [Lotrisone] 1 applic TOPICAL BID 07/20/23 [History] Lactose-Reduced Food [Ensure Plus] 1 can PO DAILY@0900 07/20/23 [History] polyethylene glycoL 3350 [Miralax] 17 gm PO DAILY@0900 07/20/23 [History] Furosemide [Lasix] 40 mg PO BID@0900,1600 30 Days #60 tab 07/31/23 [Rx] Nystatin 100,000 Unit/gm Powd [Mycostatin Powder] 1 applic TOPICAL BID #1 each 07/31/23 [Rx] Potassium Chloride ER [K-Dur 10] 10 meq PO BID 30 Days #60 tab 07/31/23 [Rx] carvediloL [Coreg] 3.125 mg PO BID-W/MEALS 30 Days #60 tab 07/31/23 [Rx] Follow up Appointment(s)/Referral(s): Kenzie Coleman MD [Primary Care Provider] - 1-2 days Zoya Sampson MD [STAFF PHYSICIAN] - 1 Week Discharge Disposition: TRANSFER TO SNF/ECF
[2023-07-31 12:18] LABS: Glucose,Whole Blood 160 mg/dL (70-110)
[2023-07-31 12:58] VITALS: BP 91/57; TEMP 97.6
== END 2023-07-31 13:25 | DRG 291 ==
LOC: EC 13:24 → 6NMEDSUR 18:00 → 5NMEDONC 07-21 04:22 → OBSVTOIN 07-21 10:05
PROVIDERS: ADMIT Hospitalist; ATTEND Hospitalist
DX: I11.0 Hypertensive heart disease with heart failure (principal); I50.33 Acute on chronic diastolic (congestive) heart failure; L89.153 Pressure ulcer of sacral region, stage 3; J96.00 Acute respiratory failure, unspecified whether with hypoxia or hypercapnia; R53.81 Other malaise; J84.10 Pulmonary fibrosis, unspecified; I05.2 Rheumatic mitral stenosis with insufficiency; E11.9 Type 2 diabetes mellitus without complications; I27.20 Pulmonary hypertension, unspecified; L89.612 Pressure ulcer of right heel, stage 2; L89.212 Pressure ulcer of right hip, stage 2; I70.0 Atherosclerosis of aorta; E66.9 Obesity, unspecified; Z68.27 Body mass index [BMI] 27.0-27.9, adult; Z96.60 Presence of unspecified orthopedic joint implant; Z99.3 Dependence on wheelchair; Z74.01 Bed confinement status; Z95.0 Presence of cardiac pacemaker; Z79.899 Other long term (current) drug therapy; Z79.82 Long term (current) use of aspirin; Z87.891 Personal history of nicotine dependence; Z11.52 Encounter for screening for COVID-19; Z87.01 Personal history of pneumonia (recurrent); Z71.3 Dietary counseling and surveillance; Z88.8 Allergy status to other drugs, medicaments and biological substances
CPT/HCPCS: 36415; 51702; 71046; 71275; 80048; 80053; 81003; 83036; 83605; 83735; 83880; 84484; 85025; 85027; 85379; 85610; 85730; 87636; 93005; 93306; 94760; 96361; 96374; 96376; 99285